=== PATIENT | female | born 1940 | race Caucasian/White ===

== ENCOUNTER 2017-08-07 01:06 | Inpatient (IN) | payer MEDICARE, OTHER ==
[~2017-08-07] VITALS: Ht 160 cm; Wt 61.0 kg
[2017-08-07] VITALS (37 sets, daily range): BP systolic 58–153; BP diastolic 45–101
[~2017-08-07 01:06] MED LIST: ACET-2267 PO; ALBU8.5H4 IH; AMOX500C2 PO; ASP81TEC PO; AZIT500T2 PO; CIPR-225 PO; CIPR500T78 PO; CLAR500T8 PO; GUAI-150 PO; LEVO500T2 PO; METO-333 PO; METO25TA2 PO; NAPR-1071 PO; PRD20T PO
--- OUTSIDE RECORDS SUMMARY | 2017-08-07 01:11 | XMS REPORT | Continuity of Care Document ---
Author Author [facility] Organization [facility] Address Unknown Phone Unavailable Allergies Active Description Code Type Severity Reaction Onset Reported/Identified Relationship to Patient Clinical Status Yes No Known Drug Allergies [id number] Drug Allergy Unknown N/A 11/02/2009 Medications There is no data. Problems Date Dx Coded Attending Type Code Diagnosis Diagnosed By 10/14/2010 Ot 491.22 10/14/2010 Ot 786.05 12/17/2010 Ot 277.4 12/17/2010 Ot 397.0 12/17/2010 Ot 401.9 12/17/2010 Ot 496 12/17/2010 Ot 785.6 12/17/2010 Ot 786.59 12/17/2010 Ot 790.95 12/17/2010 Ot V15.82 12/17/2010 Ot 305.1 12/17/2010 Ot 466.0 12/17/2010 Ot 780.60 11/10/2013 CUNNINGHAM DO, OCTAVIO Ot 397.0 11/10/2013 CUNNINGHAM DO, OCTAVIO Ot 401.9 11/10/2013 CUNNINGHAM DO, OCTAVIO Ot 424.0 11/10/2013 CUNNINGHAM DO, OCTAVIO Ot 482.9 11/10/2013 CUNNINGHAM DO, OCTAVIO Ot 491.21 11/10/2013 CUNNINGHAM DO, OCTAVIO Ot 799.02 11/10/2013 OCTAVIO SHAH, OCTAVIO Ot V15.82 02/22/2015 THERESA ISRAEL DO Ot 486 02/22/2015 THERESA ISRAEL DO Ot 496 02/22/2015 THERESA ISRAEL DO Ot 518.0 02/22/2015 THERESA ISRAEL DO Ot V15.82 04/06/2015 THERESA ISRAEL DO Ot A49.9 04/06/2015 THERESA ISRAEL DO Ot I10 04/06/2015 THERESA ISRAEL DO Ot J01.00 04/06/2015 THERESA ISRAEL DO Ot M75.52 09/14/2015 ISRAELTHERESA WATKINS DO Ot R91.8 10/06/2015 Ot R91.8 OTHER NONSPECIFIC ABNORMAL FINDING OF MARYLOU 10/22/2015 Ot R91.8 OTHER NONSPECIFIC ABNORMAL FINDING OF MARYLOU Procedures There is no data. Results There is no data. Encounters ACCT No. Visit Date/Time Discharge Status Pt. Type Provider Facility Loc./Unit Complaint [id number] 09/13/2015 09:11:00 09/13/2015 23:59:59 CLS Outpatient JHONATAN SHAHTHERESA Tanesha [facility] [id number] 04/13/2015 10:37:00 04/13/2015 23:59:59 CLS Preadmit JHONATAN SHAH THERESA Tanesha [facility] REHAB [id number] 04/05/2015 18:45:00 04/06/2015 08:41:00 DIS Inpatient THERESA ISRAEL DO Via [address] [id number] 02/20/2015 01:30:00 02/22/2015 14:30:00 DIS Inpatient ISRAEL DO, THERESA Tanesha [facility] SURGICAL [id number] 11/08/2013 11:58:00 11/10/2013 12:05:00 DIS Inpatient OCTAVIO CUNNINGHAM DO Via [address] [id number] 09/16/2015 07:48:00 Document Registration [id number] 12/17/2010 21:26:00 Document Registration [id number] 12/17/2010 00:15:00 Document Registration [id number] 10/14/2010 21:05:00 Document Registration
[2017-08-07] MEDS ORDERED: ASPIRIN 81 MG CHEW (CHILDREN'S ASA) ONE (01:18)
[2017-08-07] MEDS ORDERED: ONDANSETRON 4 MG/2 ML (SDV) Z0FRAN ONE (01:18)
--- NOTE | 2017-08-07 01:27 | ED Chest Pain ---
General Stated Complaint: LEFT ARM PAIN,VOMITING Source: patient Exam Limitations: no limitations History of Present Illness Date Seen by Provider: Aug 07, 2017 Time Seen by Provider: 01:10 Initial Comments Patient presents to the ER by a private conveyance with a chief complaint that she's having some left posterior shoulder severe pain started about 8:00 last night. She has not taken anything for it. She has no prior history of coronary artery disease. 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 She quit smoking in 2007 at the same time. She does not drink alcohol presently. She has hypertension that is controlled with the medication but she' s not sure what it is almost she is certain she is been taking it appropriately. She denies any thyroid disease, diabetes, hypercholesterolemia. She is not on blood thinners or aspirin. She's not having any shortness of breath that she did feel hot and some sweats at the time of the pain coming on as well as a little nausea. Allergies and Home Medications Allergies Coded Allergies: No Known Drug Allergies (Unverified , 11/02/09) Home Medications Acetaminophen 500 Mg Tablet, 1,000 MG PO Q6H PRN for PAIN/FEVER, (Reported) Levofloxacin 500 Mg Tablet, 500 MG PO DAILY, #7 Ref 0 Prescribed by: THERESA ISRAEL on 04/06/15 0844 Metoprolol Tartrate 25 Mg Tablet, 25 MG PO DAILY, (Reported) Naproxen 500 Mg Tablet, 500 MG PO BID, #20 Ref 0 Prescribed by: THERESA ISRAEL on 04/06/15 0844 Review of Systems Constitutional: No chills, No diaphoresis, No fever EENTM: No Blurred Vision, No Double Vision Respiratory: Denies Cough, Denies Shortness of Air Cardiovascular: Denies Chest Pain, Denies Edema, Denies Irregular Heart Rate Gastrointestinal: Denies Abdomen Distended, Denies Abdominal Pain Genitourinary: Denies Burning, Denies Discharge Musculoskeletal: No back pain, No joint pain Skin: No pruritus, No rash Psychiatric/Neurological: Denies Headache, Denies Numbness, Denies Paresthesia Past Wyrvxzz-Mdhnmy-Pltski Hx Patient Social History Alcohol Use: Denies Use Recreational Drug Use: No Smoking Status: Former Smoker Type Used: Cigarettes Former Smoker, Quit: Aug 02, 2007 Recent Foreign Travel: No Contact w/Someone Who Travel: No Immunizations Up To Date Tetanus Booster (TDap): More than 5yrs PED Vaccines UTD: Yes Date of Pneumonia Vaccine: Feb 20, 2015 Date of Influenza Vaccine: Feb 20, 2015 Surgeries Surgeries: Appendectomy, Section, Gallbladder, Tonsillectomy Respiratory Respiratory Disorders: Pneumonia, Emphysema Cardiovascular Cardiac Disorders: Hypertension Reproductive System Hx Reproductive Disorders: No Musculoskeletal Musculoskeletal Disorders: Arthritis Blood Transfusions Adverse Reaction to a Blood Tr: No Family Medical History Significant Family History: Heart Disease, Cancer, Psychiatric Problems Family Medial History: Cancer G8 BROTHER Colon cancer G8 BROTHER G8 SISTER Family history: Alzheimer's disease 19 FATHER G8 BROTHER G8 SISTER Family history: Diabetes mellitus 19 MOTHER G8 BROTHER G8 SISTER Heart disease 19 MOTHER Hypertension 19 FATHER 19 MOTHER G8 BROTHER G8 SISTER Physical Exam Vital Signs Vital Signs - First Documented 08/07/17 08/07/17 01:11 01:14 Temp 97.6 Pulse 94 Resp 24 B/P (MAP) 98/85 (89) Pulse Ox 98 O2 Delivery Room Air O2 Flow Rate 2.00 Capillary Refill : General Appearance: Anxious, Moderate Distress HEENT: PERRL/EOMI, Pharynx Normal Neck: Full Range of Motion, Non Tender, Supple Respiratory: Chest Non Tender, Lungs Clear, Normal Breath Sounds, No Accessory Muscle Use Cardiovascular: Regular Rate, Rhythm, No Edema, Gallop/S4 Gastrointestinal: Non Tender, Soft Extremity: Normal Capillary Refill, Non Tender, No Pedal Edema Neurologic/Psychiatric: Alert, Oriented x3 Skin: Normal Color, Warm/Dry Progress/Results/Core Measures Results/Orders Lab Results Laboratory Tests Test 08/07/17 01:23 Range/Units White Blood Count 11.2 H 4.3-11.0 10^3/uL Red Blood Count 4.93 4.35-5.85 10^6/uL Hemoglobin 14.8 11.5-16.0 G/DL Hematocrit 44 35-52 % Mean Corpuscular Volume 89 80-99 FL Mean Corpuscular Hemoglobin 30 25-34 PG Mean Corpuscular Hemoglobin Concent 34 32-36 G/DL Red Cell Distribution Width 13.8 10.0-14.5 % Platelet Count 186 130-400 10^3/uL Mean Platelet Volume 11.7 H 7.4-10.4 FL Neutrophils (%) (Auto) 52 42-75 % Lymphocytes (%) (Auto) 36 12-44 % Monocytes (%) (Auto) 9 0-12 % Eosinophils (%) (Auto) 3 0-10 % Basophils (%) (Auto) 0 0-10 % Neutrophils # (Auto) 5.9 1.8-7.8 X 10^3 Lymphocytes # (Auto) 4.1 H 1.0-4.0 X 10^3 Monocytes # (Auto) 1.0 0.0-1.0 X 10^3 Eosinophils # (Auto) 0.3 0.0-0.3 10^3/uL Basophils # (Auto) 0.1 0.0-0.1 10^3/uL Prothrombin Time 12.2 12.2-14.7 SEC INR Comment 0.9 0.8-1.4 Activated Partial Thromboplast Time 25 24-35 SEC My Orders Orders - LEO,IDA J Cbc With Automated Diff (08/07/17:18) Magnesium (08/07/17:18) Chest 1 View, Ap/Pa Only (08/07/17:18) Ekg Tracing (08/07/17:18) Cardiac Profile 1 (08/07/17:18) Comprehensive Metabolic Panel (08/07/17:18) Myoglobin Serum (08/07/17:18) Protime With Inr (08/07/17:18) Partial Thromboplastin Time (08/07/17:18) O2 (08/07/17:18) Monitor-Rhythm Ecg Trace Only (08/07/17:18) Lipid Panel (08/08/17 06:00) Aspirin Chewable Tablet (Baby Aspirin Ch (08/07/17 01:30) Morphine Injection (Morphine Injection (08/07/17:18) Saline Lock/Iv-Start (08/07/17:18) Ondansetron Injection (Zofran Injectio (08/07/17 01:30) Ondansetron Injection (Zofran Injectio (08/07/17:18) Aspirin Chewable Tablet (Baby Aspirin Ch (08/07/17:18) Clopidogrel Tablet (Plavix Tablet) (08/07/17 01:30) Medications Given in ED Current Medications Medications Dose Ordered Sig/Berta Route Start Time Stop Time Status Last Admin Dose Admin Aspirin 324 mg ONCE ONCE PO 08/07/17 01:30 08/07/17 01:31 DC 08/07/17 01:21 324 MG Clopidogrel Bisulfate 300 mg ONCE ONCE PO 08/07/17 01:30 08/07/17 01:31 DC 08/07/17 01:39 300 MG Ondansetron HCl 4 mg ONCE ONCE IVP 08/07/17 01:30 08/07/17 01:31 DC 08/07/17 01:23 4 MG Vital Signs/I&O Vital Sign - Last 12Hours 08/07/17 08/07/17 08/07/17 01:11 01:11 01:14 Temp 97.6 Pulse 94 Resp 24 B/P (MAP) 98/85 (89) Pulse Ox 98 99 O2 Delivery Room Air Room Air Nasal Cannula O2 Flow Rate 2.00 Progress Note : Time: 01:25 Progress Note We have given her aspirin/300mg Plavix but cannot give nitroglycerin secondary to her low blood pressure so we'll give her some morphine. We have talked to cardiology and activated the [employer] team. The second IV was placed. EKG does not feel inferior changes but even of her blood pressure is good we will probably hold off nitroglycerin. Most recent echocardiogram done by Dr. Carcamo from 2013 demonstrates normal left ventricular size and systolic function with an EF of 60%. Mix this degeneration the mitral leaflet with mild mitral regurgitation, mild-to -moderate tricuspid regurgitation. Estimated pulmonary artery pressure 50 mmHg. ECG Initial ECG Impression Date: Aug 07, 2017 Initial ECG Impression Time: 01:13 Initial ECG Rate: 85 Initial ECG Rhythm: Normal Sinus Initial ECG Intervals: Normal Initial ECG Impression: Acute VA Initial ECG Comparisson: Changed Comment T-wave depression in leads V1, V2, V3 and V4 with multiple PVCs consistent with a posterior infarct. Diagnostic Imaging Diagonstic Imaging: Xray Plain Films/CT/US/NM/MRI: chest Comments No acute cardiopulmonary processes noted. Reviewed: Reviewed by Me Departure Impression Impression: Primary Impression: Acute [facility] Qualified Codes: I21.3 - ST elevation (STEMI) myocardial infarction of unspecified site Disposition: ADMITTED INPATIENT Condition: Critical Admissions Decision to Admit Reason: Admit from ER (General) Decision to Admit/Date: Aug 07, 2017 Time/Decision to Admit Time: 01:47 Departure-Patient Inst. Referrals: THERESA ISRAEL DO (PCP/Family) Primary Care Physician Copy Copies To 1: TOI CARCAMO MD Copies To 2: THERESA ISRAEL TITUS J Aug 07, 2017 01:27
[2017-08-07 01:28] LABS: BASOPHILS # (AUTO) 0.1 10^3/uL (0.0-0.1); BASOPHILS % (AUTO) 0 % (0-10); EOSINOPHILS # (AUTO) 0.3 10^3/uL (0.0-0.3); EOSINOPHILS % (AUTO) 3 % (0-10); HEMATOCRIT 44 % (35-52); HEMOGLOBIN 14.8 G/DL (11.5-16.0); LYMPHOCYTES # (AUTO) 4.1 X 10^3 (1.0-4.0); LYMPHOCYTES % (AUTO) 36 % (12-44); MEAN CORPUSCULAR HEMOGLOBIN 30 PG (25-34); MEAN CORPUSCULAR HGB CONC 34 G/DL (32-36); MEAN CORPUSCULAR VOLUME 89 FL (80-99); MEAN PLATELET VOLUME 11.7 FL (7.4-10.4); MONOCYTES % (AUTO) 9 % (0-12); NEUTROPHILS # (AUTO) 5.9 X 10^3 (1.8-7.8); NEUTROPHILS % (AUTO) 52 % (42-75); PLATELET COUNT 186 10^3/uL (130-400); RED BLOOD COUNT 4.93 10^6/uL (4.35-5.85); RED CELL DISTRIBUTION WIDTH 13.8 % (10.0-14.5); WHITE BLOOD COUNT 11.2 10^3/uL (4.3-11.0)
[2017-08-07] MEDS ORDERED: ONDANSETRON 4 MG/2 ML (SDV) Z0FRAN IVP ONE ×2 (01:30→03:15)
[2017-08-07] MEDS ORDERED: CLOPIDOGREL 300 MG (PLAVIX) TABLET PO ONE ×2 (01:30→02:31)
[2017-08-07] MEDS ORDERED: ASPIRIN 81 MG CHEW (CHILDREN'S ASA) PO ONE (01:30)
--- OUTSIDE RECORDS SUMMARY | 2017-08-07 01:33 | XMS REPORT | Continuity of Care Document ---
Author Author [facility] Organization [facility] Address Unknown Phone Unavailable Allergies Active Description Code Type Severity Reaction Onset Reported/Identified Relationship to Patient Clinical Status Yes No Known Drug Allergies [id number] Drug Allergy Unknown N/A 11/02/2009 Medications There [...] Status Pt. Type Provider Facility Loc./Unit Complaint [id number] 09/13/2015 09:11:00 09/13/2015 23:59:59 CLS Outpatient JHONATAN SHAHTHERESA Tanesha [facility] [id number] 04/13/2015 10:37:00 04/13/2015 23:59:59 CLS Preadmit JHONATAN SHAH THERESA Tanesha [facility] REHAB [id number] 04/05/2015 18:45:00 04/06/2015 08:41:00 DIS Inpatient THERESA ISRAEL DO Via [address] [id number] 02/20/2015 01:30:00 02/22/2015 14:30:00 DIS Inpatient ISRAEL DO, THERESA Tanesha [facility] SURGICAL [id number] 11/08/2013 11:58:00 11/10/2013 12:05:00 DIS Inpatient OCTAVIO CUNNINGHAM DO Via [address] [id number] 09/16/2015 07:48:00 Document Registration [id number] 12/17/2010 21:26:00 Document Registration [id number] 12/17/2010 00:15:00 Document Registration [id number] 10/14/2010 21:05:00 Document Registration
[2017-08-07 01:37] LABS: INR 0.9 (0.8-1.4); PROTHROMBIN TIME PATIENT 12.2 SEC (12.2-14.7)
[2017-08-07] MEDS: morphine INJ 10 MG/ML 1ML (SYR OR VIAL) IV STA ×2 (01:39→01:50)
--- NOTE | 2017-08-07 01:48 | Cardiology History & Physical ---
HPI-Cardiology Cardiology Consultation Date of Consultation 08/07/17 Date of Admission Time Seen by Provider: 01:44 Indication: Chest pain HPI 76 years old lady with history of hypertension, history of tumor resection in [address] Norton, started having left arm pain around 6 p.m. yesterday, continue to worsen had left upper side chest pain, came into the emergency room , noted to have ST depression in V1 through V4 with tall R waves in V1 and V2. Given nitroglycerin, feeling better but still having some upper left chest pain and left arm pressure. No similar episodes in the past, no shortness of breath , no palpitation, syncope or near syncopal episode. PMH-Cardiology Immunizations Up To Date Tetanus Booster (DTap): More than 5yrs Date of Pneumonia Vaccine: Feb 20, 2015 Date of Influenza Vaccine: Feb 20, 2015 Surgeries Yes (T&A, CHOLECYSTECTOMY, 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, APPENDECTOMY, C-SECTIONS) Gall Bladder, Tonsillectomy, Open Heart Surgery Respiratory Yes Cardiovascular Yes (tachycardia, pulmonary hypertension, cardiac tumor status post resection) Hypertension Neurological No Reproductive System Hx Reproductive Disorders: No Gastrointestinal No Musculoskeletal Yes Arthritis Endocrine No Cancer No Psychosocial No Integumentary No Blood Transfusions No Adverse Rxn to Transfusion: No Other PMHx Past medical history as discussed below Social History Patient Social History Employed/Student: retired Alcohol Use: Denies Use Recreational Drug Use: No Smoking: Never smoker Dip or chew tobacco?: No Recent Foreign Travel: No Contact w/other who traveled: No Recent Infectious Disease Expo: No Family Hx Significant Family History: Heart Disease, Cancer, Psychiatric Problems Family History: 19 FATHER Family history: Alzheimer's disease Hypertension 19 MOTHER Family history: Diabetes mellitus Heart disease Hypertension G8 BROTHER Cancer Family history: Alzheimer's disease Family history: Diabetes mellitus Colon cancer Hypertension G8 SISTER Family history: Alzheimer's disease Family history: Diabetes mellitus Colon cancer Hypertension ROS-Cardiology Review of Systems General: No Chills, No Night Sweats, No Fatigue, No Malaise, No Appetite HEENT: No Head Aches, No Visual Changes, No Eye Pain, No Ear Pain, No Dysphasia , No Sinus Congestion, No Post Nasal Drip, No Sore Throat Pulmonary: No Dyspnea, No Cough, No Pleuritic Chest Pain Cardiovascular: Chest Pain, No: Palpitations, Orthopnea, Paroxysmal Noc. Dyspnea, Edema, Lt Headedness Gastrointestinal: No: Nausea, Vomiting, Abdominal Pain, Diarrhea, Constipation , Melena, Hematochezia Genitourinary: No Dysuria, No Frequency, No Incontinence, No Hematuria, No Retention Musculoskeletal: No: neck pain, shoulder pain, arm pain, back pain, hand pain, leg pain, foot pain Neurological: No: Weakness, Numbness, Incoordination, Change in speech, Confusion, Seizures Home Medications & Allergies Allergies: Coded Allergies: No Known Drug Allergies (Unverified , 11/02/09) Home Medication List Reviewed: Yes Exam-Cardiology Vital Signs Vital Signs Date Time Temp Pulse Resp B/P (MAP) Pulse Ox O2 Delivery O2 Flow Rate FiO2 08/07/17 01:14 99 Nasal Cannula 2.00 08/07/17 01:11 97.6 94 24 98/85 (89) Exam General Appearance: Alert, Oriented X3, Cooperative, No Acute Distress HEENT: Atraumatic, PERRLA Respiratory: Clear to Auscultation, Normal Air Movement Cardiovascular: Normal S1, Normal S2, No Murmurs, Other (Irregular rhythm) Abdominal: Normal Bowel Sounds, Soft, No Tenderness, No Hepatosplenomegaly, No Masses Extremities: No Clubbing, No Cyanosis, No Edema, Normal Pulses, No Tenderness/ Swelling Skin: No Rashes, No Breakdown, No Significant Lesion Neuro: Normal Gait, Normal Speech, Strength at 5/5 X4 Ext, Normal Tone, Sensation Intact Psych/Mental Status: Mental Status NL, Mood NL Results Labs Labs Laboratory Tests 08/07/17 01:23: White Blood Count 11.2H, Red Blood Count 4.93, Hemoglobin 14.8, Hematocrit 44, Mean Corpuscular Volume 89, Mean Corpuscular Hemoglobin 30, Mean Corpuscular Hemoglobin Concent 34, Red Cell Distribution Width 13.8, Platelet Count 186, Mean Platelet Volume 11.7H, Neutrophils (%) (Auto) 52, Lymphocytes (%) (Auto) 36 , Monocytes (%) (Auto) 9, Eosinophils (%) (Auto) 3, Basophils (%) (Auto) 0, Neutrophils # (Auto) 5.9, Lymphocytes # (Auto) 4.1H, Monocytes # (Auto) 1.0, Eosinophils # (Auto) 0.3, Basophils # (Auto) 0.1, Prothrombin Time 12.2, INR Comment 0.9, Activated Partial Thromboplast Time 25 A/P-Cardiology Admission Diagnosis Acute myocardial infarction Coronary artery disease Hypertension Cardiac tumor Assessment/Plan Acute myocardial infarction, ST depression in V1 through V4 with total R wave V1 through V2, posterior VA, catheter lab team were called. Proceed with emergency cardiac catheterization. Coronary artery disease, planning to proceed with cardiac catheterization Hypertension, currently borderline hypotensive, supported with IV fluid and monitor Questionable hyperlipidemia, I'll start on statin and evaluate lipid profile History of cardiac tumor, resection [place] [address] Norton, no follow-up with resource conservationist Clinical Quality Measures AMI/AHF: ASA po Prior to arrival: TOI Stephens MD Aug 07, 2017 01:48
--- NOTE | 2017-08-07 01:48 | Cardiac Procedure Note-CS/ASA ---
Pre-Procedure Note Pre-Op Procedure Note H&P Reviewed The H&P was reviewed, patient examined and no changes noted. Date H&P Reviewed: Aug 07, 2017 Time H&P Reviewed: 01:48 Conscious Sedation Pre-Proced Time Reviewed: :48 ASA Class: 3 Airway Mallampati Classification: (kar[place] appropriate class) I. II. III, IV Lungs Heart ASA score ASA 1: a normal healthy patient ASA 2: a patient with a mild systemic disease (mid diabetes, controlled hypertension, obesity x ASA 3: a patient with a severe systemic disease that limits activity (angina , COPD, prior Myocardial infarction) ASA 4: a patient with an incapacitating disease that is a constant threat to life (CHF, renal failure) ASA 5: a moribund patient not expected to survive 24 hrs. (ruptured aneurysm) ASA 6: a declared brain patient whose organs are being harvested. For emergent operations, add the letter E after the classification Grade 3 Sedation Plan: Analgesia, Amnesia, Plan communicated to team members, Discussed options with patient/fam, Discussed risks with patient/fam Note The patient is an appropriate candidate to undergo the planned procedure, sedation, and anesthesia. The patient immediately re-assessed prior to indication. TOI MONTAÑO MD Aug 07, 2017 01:48
[2017-08-07 01:50] LABS: ALANINE AMINOTRANSFERASE 15 U/L (0-55); ALBUMIN 4.2 GM/DL (3.2-4.5); ALKALINE PHOSPHATASE 81 U/L (40-136); BILIRUBIN,TOTAL 0.5 MG/DL (0.1-1.0); BUN/CREATININE RATIO 17; CALCIUM 9.7 MG/DL (8.5-10.1); CARBON DIOXIDE 27 MMOL/L (21-32); CHLORIDE 105 MMOL/L (98-107); CREATININE SERUM 1.05 MG/DL (0.60-1.30); GFR ESTIMATED 51; GLUCOSE 128 MG/DL (70-105); MAGNESIUM 2.4 MG/DL (1.8-2.4); POTASSIUM 4.6 MMOL/L (3.6-5.0); SODIUM 142 MMOL/L (135-145); TOTAL PROTEIN 7.3 GM/DL (6.4-8.2)
[2017-08-07] MEDS ORDERED: MIDAZOLAM 5 MG/5 ML (VERSED) VIAL ONE ×2 (01:51→05:25)
[2017-08-07] MEDS ORDERED: HEParin 1000 UNIT/ML (10ML VIAL) FOR BOLUS ONE (01:52)
[2017-08-07] MEDS ORDERED: fentaNYL INJECTION 100 MCG/2 ML AMP ONE ×2 (01:52→05:24)
[2017-08-07 02:00] LABS: MYOGLOBIN SERUM 82.1 NG/ML (10.0-92.0)
[2017-08-07] MEDS ORDERED: LIDOCAINE BOLUS 100 MG/5 ML (IMS) SYR ONE (02:06)
[2017-08-07] MEDS ORDERED: NS (IVPB) 250 ML ONE (02:06)
[2017-08-07] MEDS ORDERED: niCARdipine 25 MG/10 ML (CARDENE) AMP IV ONE (02:06)
[2017-08-07] MEDS ORDERED: ATROPINE INJECTION 1 MG/10 ML SYR (ABBOTT) ONE (02:06)
[2017-08-07] MEDS ORDERED: EPTIFIBATIDE BOLUS 10 ML IV ONE (02:15)
--- NOTE | 2017-08-07 02:44 | Cardiac Cath Report ---
Cardiac Cath Report Physician (s)/Java Manager (s) Physician TOI MONTAÑO MD Pre-Procedure Diagnosis Pre-Procedure Diagnosis: Acute ST elevation myocardial infarctions Post-Procedure Note Procedure Start Date: Aug 07, 2017 Name of Procedure: Left heart catheterization, left ventriculogram Extraction catheter, balloon angioplasty and stent to the circumflex artery Findings/Procedure Note PROCEDURE NOTE: After explaining the procedure to the patient, all pros and cons were explained, all questions were answered. The patient signed the consent and then she was placed on the cardiac catheterization laboratory. The patient was placed on the cardiac catheterization laboratory. Groin was prepped SL fashion local anesthesia was used. Sheath placed in the right femoral artery. Alee right and left catheter were used to access the coronary system. Pigtail was used to access the left ventricular cavity. Left ventriculogram was done Patient had total occlusion of the circumflex artery with heavy from thrombus burden, she was given 6000 units of heparin, double bolus of Integrilin no drip was used, FL guide was used, BMW wire was advanced to the circumflex artery, some blood flow was noted, I used extraction catheter, door to extraction catheter was 67 minutes, predilatation with 2.015 mm balloon then stent deployment using Alpine 2.518 mm drug-eluting stent expanded to 2.6 mm under 12 shweta, given 200 g of intracoronary nitroglycerin, excellent results. No residual stenosis At the end of the procedure the sheath was removed. Closure device Was used FINDINGS: Hemodynamics LV 108/23, end-diastolic pressure of 23 Aorta 106/54 mean of 74 ANATOMY: Left Main is free of obstructive disease Left Anterior Descending it is tortuous with mild disease Left Circumflex tortuous artery, totally occluded proximally, successful extraction catheter then balloon angioplasty then stent deployment using Alpine 2.518 mm expanded to 2.6 mm in the proximal circumflex artery with excellent results. Mild to moderate disease distally Right Coronory Artery has 90 percent stenosis proximally which will be addressed at a later point LV Gram was done in 2 views, normal contractility, estimated ejection fraction 70 percent CONCLUSION: 1. Acute ST elevation posterior myocardial infarction with total occlusion of the proximal circumflex artery with heavy thrombus burden, extraction catheter then balloon angioplasty then stent deployment using Alpine 2.518 mm expanded to 2.6 mm with excellent results. Mild to moderate disease in the distal circumflex artery, door to extraction catheter and establishing flow is 67 minutes 2. 90 percent stenosis in the proximal right coronary artery that will be addressed at a later point 3. Tortuous carotid system with mild disease in the LAD 4. Normal left ventricular size with normal contractility with estimated ejection fraction 70 percent DISCUSSION AND RECOMMENDATION: I will continue maximizing medical therapy, patient is hypotensive at this time , I'll continue with IV fluid and will use dopamine drip, planning to bring the patient back for intervention to the right coronary artery Anesthesia Type: Conscious Sedation Estimated blood loss (mL): 20 ml Contrast Amount: 135 ml Total Radiation Dose: 557 mGy Post-Procedure Diagnosis Post-operative diagnosis: Acute ST elevation myocardial infarction, posterior wall NE Coronary artery disease Hypotensive shock Cardiac tumor TOI MONTAÑO MD Aug 07, 2017 02:44
[2017-08-07] MEDS ORDERED: PATIENT MAY USE OWN MEDS, ALL PO SCH (02:45)
[2017-08-07] MEDS ORDERED: DOPamine DRIP 250 ML IV ONE (02:47)
[2017-08-07] MEDS ORDERED: PANTOPRAZOLE 40 MG/10 ML (PROTONIX) VIAL IV ONE (03:15)
[2017-08-07] MEDS: NS IV 1000 ML 1,000 ML IV SCH ×5 (03:30→12:34)
--- OUTSIDE RECORDS SUMMARY | 2017-08-07 03:38 | XMS REPORT | Continuity of Care Document ---
Author Author [facility] Organization [facility] Address Unknown Phone Unavailable Allergies Active Description Code Type Severity Reaction Onset Reported/Identified Relationship to Patient Clinical Status Yes No Known Drug Allergies [id number] Drug Allergy Unknown N/A 11/02/2009 Medications There [...] Status Pt. Type Provider Facility Loc./Unit Complaint [id number] 09/13/2015 09:11:00 09/13/2015 23:59:59 CLS Outpatient JHONATAN SHAHTHERESA Tanesha [facility] [id number] 04/13/2015 10:37:00 04/13/2015 23:59:59 CLS Preadmit JHONATAN SHAH THERESA Tanesha [facility] REHAB [id number] 04/05/2015 18:45:00 04/06/2015 08:41:00 DIS Inpatient THERESA ISRAEL DO Via [address] [id number] 02/20/2015 01:30:00 02/22/2015 14:30:00 DIS Inpatient ISRAEL DO, THERESA Tanesha [facility] SURGICAL [id number] 11/08/2013 11:58:00 11/10/2013 12:05:00 DIS Inpatient OCTAVIO CUNNINGHAM DO Via [address] [id number] 09/16/2015 07:48:00 Document Registration [id number] 12/17/2010 21:26:00 Document Registration [id number] 12/17/2010 00:15:00 Document Registration [id number] 10/14/2010 21:05:00 Document Registration
[2017-08-07 03:44] LABS: HEMOGLOBIN 14.2 G/DL (11.5-16.0); MEAN PLATELET VOLUME 11.9 FL (7.4-10.4); RED BLOOD COUNT 4.81 10^6/uL (4.35-5.85); RED CELL DISTRIBUTION WIDTH 13.8 % (10.0-14.5); WHITE BLOOD COUNT 12.5 10^3/uL (4.3-11.0)
[2017-08-07 04:12] LABS: INR 1.1 (0.8-1.4); PROTHROMBIN TIME PATIENT 14.1 SEC (12.2-14.7)
[2017-08-07] MEDS ORDERED: D5W 100 ML IVPB 100 ML IV ONE (04:27)
[2017-08-07 04:28] LABS: PARTIAL THROMBOPLASTIN TIME > 200 SEC (24-35)
[2017-08-07] MEDS ORDERED: PROTAMINE 50 MG/5 ML VIAL IV ONE (04:30)
[2017-08-07] MEDS ORDERED: PANTOPRAZOLE INJECTION 200 MG in D5W 100 ML IVPB 50 ML IV SCH (04:30)
--- NOTE | 2017-08-07 04:42 | Conscious Sedation/ASA ---
Conscious Sedation Pre-Proced Time Reviewed: 04:42 ASA Class: 4 Airway Mallampati Classification: (iroquois appropriate class) I. II. III, IV Lungs Heart ASA score ASA 1: a normal healthy patient ASA 2: a patient with a mild systemic disease (mid diabetes, controlled hypertension, obesity ASA 3: a patient with a severe systemic disease that limits activity (angina , COPD, prior Myocardial infarction) ASA 4: a patient with an incapacitating disease that is a constant threat to life (CHF, renal failure) ASA 5: a moribund patient not expected to survive 24 hrs. (ruptured aneurysm) ASA 6: a declared brain patient whose organs are being harvested. For emergent operations, add the letter E after the classification Grade 2 Sedation Plan: Discussed options with patient/fam Note The patient is an appropriate candidate to undergo the planned procedure, sedation, and anesthesia. The patient immediately re-assessed prior to indication. JUAN FRANCISCO BURLESON MD Aug 07, 2017 04:42
--- NOTE | 2017-08-07 04:42 | Consultation ---
History of Present Illness History of Present Illness Patient Consulted On(willis/time) 08/07/17 04:38 Date Seen by Provider: Aug 07, 2017 Time Seen by Provider: 04:05 Reason for Visit: Chest pain History of Present Illness Patient recovering from cardiac catheterization and angioplasty with stent placement of circumflex artery, to manage acute myocardial infarction. Heparin and antiplatelet drugs have been used to optimize her coronary status and improve the patency of her stent. The nursing staff reported hematemesis and I have been asked to see her to evaluate and address this symptom. She denies any previous episodes of melena or hematemesis and could not recall any symptoms suggestive of peptic ulcer disease. Allergies and Home Medications Allergies Coded Allergies: No Known Drug Allergies (Unverified , 11/02/09) Home Medications Acetaminophen 500 Mg Tablet, 1,000 MG PO Q6H PRN for PAIN/FEVER, (Reported) Levofloxacin 500 Mg Tablet, 500 MG PO DAILY, #7 Ref 0 Prescribed by: THERESA ISRAEL on 04/06/15 0844 Metoprolol Tartrate 25 Mg Tablet, 25 MG PO DAILY, (Reported) Naproxen 500 Mg Tablet, 500 MG PO BID, #20 Ref 0 Prescribed by: THERESA ISRAEL on 04/06/15 0844 Past Fxdynzd-Oqabwn-Yymtrs Hx Patient Social History Alcohol Use: Denies Use Recreational Drug Use: No Smoking Status: Former Smoker Type Used: Cigarettes Former Smoker, Quit: Aug 02, 2007 Recent Foreign Travel: No Contact w/Someone Who Travel: No Recent Infectious Disease Expo: No Recent Hopitalizations: Yes Physical Abuse: No Sexual Abuse: No Mistreated: No Fear: No Immunizations Up To Date Tetanus Booster (TDap): More than 5yrs PED Vaccines UTD: Yes Date of Pneumonia Vaccine: Feb 20, 2015 Date of Influenza Vaccine: Feb 20, 2015 Surgeries History of Surgeries: Yes (T&A, CHOLECYSTECTOMY, 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, APPENDECTOMY, C-SECTIONS) Surgeries: Appendectomy, Section, Gallbladder, Tonsillectomy Respiratory History of Respiratory Disorde: Yes Respiratory Disorders: Pneumonia, Emphysema Cardiovascular History of Cardiac Disorders: Yes (tachycardia, pulmonary hypertension, cardiac tumor status post resection) Cardiac Disorders: Hypertension Neurological History of Neurological Disord: No Reproductive System Hx Reproductive Disorders: No Gastrointestinal History of Gastrointestinal Di: No Musculoskeletal History of Musculoskeletal Dis: Yes Musculoskeletal Disorders: Arthritis Endocrine History of Endocrine Disorders: No Cancer History of Cancer: No Psychosocial History of Psychiatric Problem: No Suicide Risk Score: 0 Integumentary History of Skin or Integumenta: No Blood Transfusions History of Blood Disorders: No Adverse Reaction to a Blood Tr: No Family Medical History Significant Family History: Heart Disease, Cancer, Psychiatric Problems Family Medial History: Cancer G8 BROTHER Colon cancer G8 BROTHER G8 SISTER Family history: Alzheimer's disease 19 FATHER G8 BROTHER G8 SISTER Family history: Diabetes mellitus 19 MOTHER G8 BROTHER G8 SISTER Heart disease 19 MOTHER Hypertension 19 FATHER 19 MOTHER G8 BROTHER G8 SISTER Review of Systems-General Constitutional: weakness EENTM: no symptoms reported Respiratory: no symptoms reported Cardiovascular: see HPI Gastrointestinal: see HPI Genitourinary: no symptoms reported Musculoskeletal: no symptoms reported Skin: no symptoms reported Psychiatric/Neurological: No Symptoms Reported Physical Exam-General Problems Physical Exam Vital Signs Vital Signs - First Documented 08/07/17 08/07/17 01:11 01:14 Temp 97.6 Pulse 94 Resp 24 B/P (MAP) 98/85 (89) Pulse Ox 98 O2 Delivery Room Air O2 Flow Rate 2.00 Capillary Refill : Less Than 3 Seconds General Appearance: mild distress Neck: supple Respiratory: lungs clear Cardiovascular: other Gastrointestinal: non tender, soft Neurologic/Psychiatric: alert Skin: warm/dry Comments No significant hematoma over the right groin. Assessment/Plan Assessment/Plan Admission Diagnosis/Plan Lady with upper GI bleeding. Antiplatelet therapy and anticoagulants. Currently hemoglobin stable. Requires vasopressors to maintain a reasonable blood pressure. Appropriate to perform a diagnostic upper endoscopy first. It is likely that she will require the procedure to be repeated and possibly some therapeutic maneuvers performed. I have discussed this with her and she is in agreement Clinical Quality Measures AMI/AHF: ASA po Prior to arrival: JUAN FRANCISCO Mcginnis MD Aug 07, 2017 04:42
[2017-08-07] MEDS: PANTOPRAZOLE INJECTION 200 MG in D5W 100 ML IVPB 50 ML IV SCH (04:45)
[2017-08-07 04:52] LABS: CALCIUM 8.8 MG/DL (8.5-10.1); CREATININE SERUM 0.97 MG/DL (0.60-1.30); POTASSIUM 4.7 MMOL/L (3.6-5.0)
[2017-08-07] MEDS ORDERED: EPINEPHrine INJECTION 1 MG/ML AMP ONE (05:16)
[2017-08-07] MEDS ORDERED: METOCLOPRAMIDE INJ 10 MG/2 ML (REGLAN) ONE (05:17)
--- NOTE | 2017-08-07 05:17 | Diagnostic Imaging Report ---
INDICATION: History of heart disease COMPARISON: 04/05/2015 FINDINGS: Single frontal view of the chest demonstrates normal heart size and pulmonary vascularity. The lungs are hyperinflated, but are otherwise clear. No large pleural effusion or pneumothorax is seen. The visualized osseous structures show no acute abnormalities. Sternotomy wires are noted. IMPRESSION: 1. No acute cardiopulmonary process. 2. Background of COPD. Dictated by: Dictated on workstation # [id number]
[2017-08-07] MEDS ORDERED: HURRICAINE EXT TUBE (BENZOCAINE) ONE (05:25)
[2017-08-07] MEDS ORDERED: fentaNYL INJECTION 100 MCG/2 ML AMP IVP ONE (05:31)
[2017-08-07] MEDS ORDERED: MIDAZOLAM 2 MG/2 ML (VERSED) VIAL IVP ONE (05:33)
[2017-08-07] MEDS ORDERED: METOCLOPRAMIDE INJ 10 MG/2 ML (REGLAN) IVP ONE (05:45)
--- NOTE | 2017-08-07 05:49 | Endo Procedure Record ---
Endo Procedure Report Date of Procedure Last Colonoscopy: No Aug 07, 2017 Surgeon (s) JUAN FRANCISCO BURLESON MD Post Procedure/Op Diagnosis Clots down the distal esophagus and the proximal stomach. No active bleeding encountered Procedure Performed Upper GI endoscopy Description of Procedure Anesthesia Type: Conscious Sedation Specimen(s) collected/removed None Description of the Procedure Indication for procedure: This lady has just undergone cardiac catheterization and stent placement to manage an acute myocardial infarction with thrombosis of the circumflex artery. Obviously, she received heparin and antiplatelet drugs. She developed hematemesis and hemodynamic instability. Therefore, an upper endoscopy was appropriate, despite limitations of visibility due to blood clots. Due to the grave nature of her condition, the procedure was considered emergent and medically indicated. In addition, there was no family member available to obtain informed consent. Description of the procedure: She was placed in left lateral decubitus position and conscious sedation achieved using 1 mg of Versed and 50 g of fentanyl. The flexible gastroscope was introduced down the esophagus, past the stomach, into the proximal duodenum. Findings Esophagus: Clots along the distal esophagus with no evidence of active bleeding or varices. Stomach: Clots and dilute blood along the proximal body possibly due to gastritis. No definitive ulceration could be identified. Duodenum: Normal. She tolerated the procedure reasonably well and remained stable. Impression upper GI bleeding possibly due to acute gastritis. Will treat medically and consider second look endoscopy within 24-48 hours. Copies To: TOI MONTAÑO MD, XAVIER M MD Aug 07, 2017 5:48 am
--- NOTE | 2017-08-07 06:51 | Pulmonary Consultation ---
History of Present Illness History of Present Illness Date of Consultation 08/07/17 06:40 Time Seen by Provider: 06:40 Date of Admission Reason for Visit: Chest pain History of Present Illness 76yo with hx of tobacco use quit in 2005 and no hx of diagnosed COPD presented secondary to left CP with radiation to left arm and found to have ST depression in V1 and V4. 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 Dr Hardy was called and performed EGD. 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 I am consulted for ICU management. Allergies and Home Medications Allergies Coded Allergies: No Known Drug Allergies (Unverified , 11/02/09) Home Medications Acetaminophen 500 Mg Tablet, 1,000 MG PO Q6H PRN for PAIN/FEVER, (Reported) Levofloxacin 500 Mg Tablet, 500 MG PO DAILY, #7 Ref 0 Prescribed by: THERESA ISRAEL on 04/06/15 0844 Metoprolol Tartrate 25 Mg Tablet, 25 MG PO DAILY, (Reported) Naproxen 500 Mg Tablet, 500 MG PO BID, #20 Ref 0 Prescribed by: THERESA ISRAEL on 04/06/15 0844 Past Pvhyjtt-Ktjaqt-Efzhhv Hx Patient Social History Alcohol Use: Denies Use Recreational Drug Use: No Smoking Status: Former Smoker Type Used: Cigarettes Former Smoker, Quit: Aug 02, 2007 Recent Foreign Travel: No Contact w/Someone Who Travel: No Recent Infectious Disease Expo: No Recent Hopitalizations: Yes Physical Abuse: No Sexual Abuse: No Mistreated: No Fear: No Immunizations Up To Date Tetanus Booster (TDap): More than 5yrs PED Vaccines UTD: Yes Date of Pneumonia Vaccine: Feb 20, 2015 Date of Influenza Vaccine: Feb 20, 2015 Surgeries History of Surgeries: Yes (T&A, CHOLECYSTECTOMY, 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, APPENDECTOMY, C-SECTIONS) Surgeries: Appendectomy, Section, Gallbladder, Tonsillectomy Respiratory History of Respiratory Disorde: Yes Respiratory Disorders: Pneumonia, Emphysema Cardiovascular History of Cardiac Disorders: Yes (tachycardia, pulmonary hypertension, cardiac tumor status post resection) Cardiac Disorders: Hypertension Neurological History of Neurological Disord: No Reproductive System : No Hx Reproductive Disorders: No Gastrointestinal History of Gastrointestinal Di: No Musculoskeletal History of Musculoskeletal Dis: Yes Musculoskeletal Disorders: Arthritis Endocrine History of Endocrine Disorders: No Cancer History of Cancer: No Psychosocial History of Psychiatric Problem: No Suicide Risk Score: 0 Integumentary History of Skin or Integumenta: No Blood Transfusions History of Blood Disorders: No Adverse Reaction to a Blood Tr: No Family Medical History Significant Family History: Heart Disease, Cancer, Psychiatric Problems Family Medial History: Cancer G8 BROTHER Colon cancer G8 BROTHER G8 SISTER Family history: Alzheimer's disease 19 FATHER G8 BROTHER G8 SISTER Family history: Diabetes mellitus 19 MOTHER G8 BROTHER G8 SISTER Heart disease 19 MOTHER Hypertension 19 FATHER 19 MOTHER G8 BROTHER G8 SISTER Review of Systems Time Seen by Provider: 06:53 Constitutional: Weakness, Malaise, No: Fever, Chills Eyes: No: Pain, Vision change, Conjunctivae inflammation, Eyelid inflammation, Other, Redness ENT: No: Nose congestion Respiratory: No: Cough, Dry, Shortness of breath, SOB with excertion Cardiovascular: Chest Pain, No: Palpitations, Paroxysmal Noc. Dyspnea Gastrointestinal: No: Nausea, Vomiting, Diarrhea Genitourinary: No Dysuria Neurological: Weakness Exam Exam Vital Signs Date Time Temp Pulse Resp B/P (MAP) Pulse Ox O2 Delivery O2 Flow Rate FiO2 08/07/17 06:15 90 12 78/57 (64) 95 Nasal Cannula 2.00 08/07/17 06:00 93 12 77/59 (65) 96 Nasal Cannula 2.00 08/07/17 05:45 93 19 58/45 (49) 93 Nasal Cannula 2.00 08/07/17 05:30 105 23 103/87 (92) 87 Nasal Cannula 2.00 08/07/17 05:15 118 25 98/69 (79) 97 Nasal Cannula 2.00 08/07/17 05:00 108 13 111/75 (87) 97 Nasal Cannula 2.00 08/07/17 04:55 97.6 99 17 77/65 98 Nasal Cannula 3.00 08/07/17 04:55 97.6 96 17 77/65 96 Nasal Cannula 4.00 08/07/17 04:45 125 25 101/72 (82) 94 Nasal Cannula 2.00 08/07/17 04:40 97.2 125 23 103/86 95 Nasal Cannula 4.00 08/07/17 04:30 124 12 103/86 (92) 95 Nasal Cannula 2.00 08/07/17 04:15 133 27 100/66 (77) 94 Nasal Cannula 2.00 08/07/17 04:00 126 13 100/66 (77) 97 Nasal Cannula 2.00 08/07/17 03:45 103 10 81/49 (60) 97 Nasal Cannula 2.00 08/07/17 03:30 99 14 87/63 (71) 96 Nasal Cannula 2.00 08/07/17 03:15 100 12 103/68 (80) 95 Nasal Cannula 2.00 08/07/17 03:14 86 08/07/17 03:00 Nasal Cannula 3.00 94 08/07/17 03:00 91 24 89/62 (71) 91 Nasal Cannula 2.00 08/07/17 01:57 92 16 142/63 98 Nasal Cannula 2.00 08/07/17 01:14 99 Nasal Cannula 2.00 08/07/17 01:11 97.6 94 24 98/85 (89) 98 Room Air 08/07/17 01:11 Room Air General Appearance: Anxious, Moderate Distress HEENT: PERRL/EOMI, Pharynx Normal Neck: Full Range of Motion, Non Tender, Supple Respiratory: Chest Non Tender, Lungs Clear, Normal Breath Sounds, No Accessory Muscle Use Cardiovascular: Regular Rate, Rhythm, No Edema, Gallop/S4 Capillary Refill: Less Than 3 Seconds Gastrointestinal: non tender, soft Extremity: Normal Capillary Refill, Non Tender, No Pedal Edema Neurologic/Psychiatric: Alert, Oriented x3 Skin: Normal Color, Warm/Dry Results Lab Laboratory Tests 08/07/17 01:23 08/07/17 03:20 Assessment/Plan Assessment/Plan Acute ME s/p Cath -Cardiology is following Acute upper GIB with gastritis s/p EGD Anemia -Transfuse Hx of cardiac tumor post resection in 2003 Hypoxia -oxygen Hypotension - responding to IVF -Monitor 255 Clinical Quality Measures AMI/AHF: ASA po Prior to arrival: REBECCA De La Rosa DO Aug 07, 2017 06:51
[2017-08-07] MEDS: OMEGA 3 (FISH OIL) 1000 MG CAP PO SCH ×2 (07:00→17:14)
[2017-08-07] MEDS ORDERED: INFLUENZA TRIvalent 2017-2018 0.5 ML/45 MCG SYR IM ONE (09:00)
[2017-08-07] MEDS: meTOprolol TARTRATE 25 MG (LOPRESSOR) TABLET PO SCH ×2 (09:21→21:15)
[2017-08-07 10:42] LABS: HEMOGLOBIN 14.3 G/DL (11.5-16.0)
[2017-08-07] MEDS: ONDANSETRON 4 MG/2 ML (SDV) Z0FRAN IV PRN ×2 (11:35→21:44)
[2017-08-07] MEDS ORDERED: ACETAMINOPHEN 500 MG TAB (TYLENOL) ONE (11:41)
[2017-08-07] MEDS: CLOPIDOGREL 75 MG (PLAVIX) TABLET PO SCH (11:44)
[2017-08-07] MEDS: ASPIRIN E.C. 81 MG (ECOTRIN) TAB PO SCH (11:44)
[2017-08-07] MEDS ORDERED: ACETAMINOPHEN 500 MG TAB (TYLENOL) PO PRN (11:45)
[2017-08-07] MEDS ORDERED: CATHETER FLUSH 10 ML SYR IV PRN (11:45)
[2017-08-07] MEDS ORDERED: FUROSEMIDE 40 MG/4 ML INJ (LASIX) IVP ONE (13:45)
--- NOTE | 2017-08-07 14:14 | Diagnostic Imaging Report ---
INDICATION: Shortness of air. Time of exam 1:59 PM Correlation is made with prior exam from earlier the same day. Changes of median sternotomy are noted. An NG tube has been placed and passes below the diaphragm. The patient has developed central congestive changes and interstitial infiltrates consistent with CHF. No effusion or pneumothorax is seen. IMPRESSION: Development of congestive failure when compared with examination earlier the same day. Dictated by: Dictated on workstation # [id number]
[2017-08-07] MEDS ORDERED: FUROSEMIDE 40 MG/4 ML INJ (LASIX) IVP NR (14:30)
[2017-08-07] MEDS ORDERED: RT-ALBUTEROL/IPRATROPIUM 3 ML (DUONEB) VIAL INH SCH ×2 (14:30→21:00)
[2017-08-07 14:42] LABS: HEMOGLOBIN 14.7 G/DL (11.5-16.0)
[2017-08-07] MEDS ORDERED: CYAN500T2 PO (15:57)
[2017-08-07] MEDS ORDERED: CHOL100048 PO (15:57)
[2017-08-07] MEDS ORDERED: METO-333 PO (15:57)
[2017-08-07] MEDS ORDERED: IPRA3AMP IH (16:04)
[2017-08-07] MEDS ORDERED: RT-ALBUTEROL/IPRATROPIUM 3 ML (DUONEB) VIAL INH PRN (17:15)
[2017-08-07] MEDS ORDERED: MAGNESIUM CITRATE 300 ML BTL PO NR (18:45)
[2017-08-07] MEDS: ATORVASTATIN 80 MG (LIPITOR) TABLET PO SCH (21:14)
[2017-08-08] VITALS (26 sets, daily range): BP systolic 92–129; BP diastolic 46–98
[2017-08-08] MEDS: NS IV 1000 ML 1,000 ML IV SCH ×5 (01:37→23:29)
[2017-08-08 03:46] LABS: BASOPHILS % (AUTO) 0 % (0-10); EOSINOPHILS # (AUTO) 0.1 10^3/uL (0.0-0.3); EOSINOPHILS % (AUTO) 1 % (0-10); HEMATOCRIT 41 % (35-52); LYMPHOCYTES # (AUTO) 2.1 X 10^3 (1.0-4.0); LYMPHOCYTES % (AUTO) 21 % (12-44); MEAN CORPUSCULAR HEMOGLOBIN 31 PG (25-34); MEAN CORPUSCULAR HGB CONC 34 G/DL (32-36); MEAN CORPUSCULAR VOLUME 90 FL (80-99); MONOCYTES # (AUTO) 0.8 X 10^3 (0.0-1.0); MONOCYTES % (AUTO) 8 % (0-12); NEUTROPHILS # (AUTO) 7.2 X 10^3 (1.8-7.8); NEUTROPHILS % (AUTO) 71 % (42-75); PLATELET COUNT 107 10^3/uL (130-400); RED BLOOD COUNT 4.58 10^6/uL (4.35-5.85); RED CELL DISTRIBUTION WIDTH 14.7 % (10.0-14.5); WHITE BLOOD COUNT 10.2 10^3/uL (4.3-11.0)
[2017-08-08 04:08] LABS: CHOLESTEROL 170 MG/DL (< 200); HDL CHOLESTEROL 47 MG/DL (40-60); TRIGLYCERIDES 113 MG/DL (<150); VLDL CHOLESTEROL 23 MG/DL (5-40)
[2017-08-08 04:13] LABS: BUN/CREATININE RATIO 16; CALCIUM 8.3 MG/DL (8.5-10.1); CARBON DIOXIDE 25 MMOL/L (21-32); CHLORIDE 105 MMOL/L (98-107); CREATININE SERUM 0.88 MG/DL (0.60-1.30); GFR ESTIMATED > 60; GLUCOSE 99 MG/DL (70-105); MAGNESIUM 2.1 MG/DL (1.8-2.4); PHOSPHORUS 3.1 MG/DL (2.3-4.7); POTASSIUM 4.3 MMOL/L (3.6-5.0); SODIUM 141 MMOL/L (135-145)
--- NOTE | 2017-08-08 04:48 | Pulmonary Progress Note ---
Exam Exam Vital Signs Date Time Temp Pulse Resp B/P (MAP) Pulse Ox O2 Delivery O2 Flow Rate FiO2 08/08/17 04:00 89 16 98/64 (75) 94 Nasal Cannula 2.00 08/08/17 03:00 65 29 103/89 (94) 97 Nasal Cannula 2.00 08/08/17 02:00 89 28 104/68 (80) 95 Nasal Cannula 2.00 08/08/17 01:00 86 20 120/81 (94) 96 Nasal Cannula 2.00 08/08/17 01:00 86 08/08/17 00:00 87 24 104/78 (87) 95 Nasal Cannula 2.00 08/08/17 00:00 95 Nasal Cannula 2.00 08/08/17 00:00 97.4 Nasal Cannula 2.00 08/07/17 23:00 86 15 104/67 (79) 95 Nasal Cannula 2.00 08/07/17 22:00 97 19 105/78 (87) 94 Nasal Cannula 2.00 08/07/17 21:00 96 16 120/83 (95) 95 Nasal Cannula 2.00 08/07/17 20:00 97.9 Nasal Cannula 2.00 08/07/17 20:00 95 Nasal Cannula 2.00 08/07/17 20:00 113 26 123/79 (94) 95 Nasal Cannula 2.00 08/07/17 19:00 102 08/07/17 19:00 102 16 124/84 (97) 95 Nasal Cannula 2.00 08/07/17 18:00 104 27 149/96 (113) 95 Nasal Cannula 2.00 08/07/17 17:00 101 24 126/95 (105) 95 Nasal Cannula 2.00 08/07/17 16:52 98 Nasal Cannula 2.00 08/07/17 16:00 96 Nasal Cannula 2.00 08/07/17 16:00 100 24 139/94 (109) Room Air 2.00 08/07/17 16:00 98.6 08/07/17 15:00 111 25 145/101 (116) 34 Room Air 08/07/17 15:00 98 17 145/99 (114) 95 Room Air 3.00 08/07/17 14:00 102 29 153/99 (117) Room Air 08/07/17 13:00 96 18 111/90 (97) 93 Room Air 08/07/17 13:00 96 08/07/17 12:00 96 19 93 Room Air 3.00 08/07/17 12:00 94 Nasal Cannula 2.00 08/07/17 11:00 100.0 98 20 144/98 (113) 92 Room Air 08/07/17 10:00 93 25 121/87 (98) 96 Nasal Cannula 3.00 08/07/17 09:00 90 13 136/89 (105) 97 Nasal Cannula 3.00 08/07/17 08:00 96 Nasal Cannula 3.00 08/07/17 08:00 92 30 103/77 (86) 96 Nasal Cannula 2.00 08/07/17 08:00 92 31 103/77 (86) 96 Nasal Cannula 3.00 08/07/17 07:20 97.6 98 18 138/89 Nasal Cannula 3.00 08/07/17 07:06 97.4 98 8 102/68 94 Nasal Cannula 3.00 08/07/17 07:02 97.4 98 8 102/68 94 Nasal Cannula 3.00 08/07/17 07:02 97.4 92 8 102/68 94 Nasal Cannula 3.00 08/07/17 07:00 97.4 92 12 108/72 94 Nasal Cannula 3.00 08/07/17 07:00 97.8 08/07/17 07:00 102 08/07/17 07:00 105 30 108/72 (84) 94 Nasal Cannula 2.00 08/07/17 07:00 105 11 108/72 (84) 96 Nasal Cannula 3.00 08/07/17 06:15 90 12 78/57 (64) 95 Nasal Cannula 2.00 08/07/17 06:00 93 12 77/59 (65) 96 Nasal Cannula 2.00 08/07/17 06:00 98 18 91/61 (71) 94 Nasal Cannula 3.00 08/07/17 05:45 93 19 58/45 (49) 93 Nasal Cannula 2.00 08/07/17 05:30 105 23 103/87 (92) 87 Nasal Cannula 2.00 08/07/17 05:19 97.5 109 18 111/75 95 Nasal Cannula 3.00 08/07/17 05:15 118 25 98/69 (79) 97 Nasal Cannula 2.00 08/07/17 05:11 97.6 112 27 69/ 94 Nasal Cannula 3.00 08/07/17 05:00 84 19 122/84 (97) 96 Nasal Cannula 3.00 08/07/17 05:00 108 13 111/75 (87) 97 Nasal Cannula 2.00 08/07/17 04:55 97.6 96 17 77/65 96 Nasal Cannula 4.00 08/07/17 04:45 125 25 101/72 (82) 94 Nasal Cannula 2.00 I & O 08/08/17 07:00 Intake Total 150 ml Output Total 3955 ml Balance -3805 ml General Appearance: Anxious, Moderate Distress HEENT: PERRL/EOMI, Pharynx Normal Neck: Full Range of Motion, Non Tender, Supple Respiratory: Chest Non Tender, Lungs Clear, Normal Breath Sounds, No Accessory Muscle Use Cardiovascular: Regular Rate, Rhythm, No Edema, Gallop/S4 Capillary Refill: Less Than 3 Seconds Gastrointestinal: non tender, soft Extremity: Normal Capillary Refill, Non Tender, No Pedal Edema Neurologic/Psychiatric: Alert, Oriented x3 Skin: Normal Color, Warm/Dry Results Lab Laboratory Tests 08/07/17 01:23 08/07/17 03:20 08/07/17 10:35 08/07/17 14:36 08/07/17 22:18 08/08/17 03:15 Assessment/Plan Assessment/Plan Acute MD s/p Cath -Cardiology is following - 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 COPDAE -pt is feeling more SOB this morning. SVNs - increase to Q 6 -Add solumedrol Acute upper GIB with gastritis s/p EGD Anemia -Transfuse Hx of cardiac tumor post resection in 2003 Hypoxia -oxygen 233 Clinical Quality Measures AMI/AHF: ASA po Prior to arrival: No DVT/VTE Risk/Contraindication: Risk Factor Score Per Nursin RFS Level Per Nursing on Admit: 4+=Very High REBECCA CARRERO DO Aug 08, 2017 04:48
[2017-08-08] MEDS: PANTOPRAZOLE INJECTION 200 MG in D5W 100 ML IVPB 50 ML IV SCH (04:51)
[2017-08-08] MEDS ORDERED: methylPREDNISolone 40 MG/ML (Solu-MEDROL) VIAL IV SCH (05:00)
[2017-08-08] MEDS ORDERED: RT-ALBUTEROL/IPRATROPIUM 3 ML (DUONEB) VIAL INH SCH ×2 (06:00→09:00)
[2017-08-08] MEDS: OMEGA 3 (FISH OIL) 1000 MG CAP PO SCH ×2 (07:00→16:02)
--- NOTE | 2017-08-08 08:09 | Diagnostic Imaging Report ---
INDICATION: Chest pain. TIME OF EXAMINATION: 02:58 a.m. COMPARISON: Comparison is made with prior exam one day earlier. FINDINGS: The heart size is stable. There are changes of median sternotomy. The NG tube has been removed. There are congestive changes in both lungs, similar to yesterday. There is a small right effusion. No pneumothorax is seen. IMPRESSION: Continued changes of congestive failure and small right pleural effusion. Dictated by: Dictated on workstation # [id number]
--- NOTE | 2017-08-08 09:03 | Cardiology Progress Note ---
Subjective Date Seen by Provider: Aug 08, 2017 Time Seen by Provider: 08:58 Subjective/Events-last exam patient was seen and evaluated at that site, still having significant dyspnea. Had complex day after her acute myocardial infarction. Still dyspneic, denied chest pain, had EKG changes, troponin is still climbing. Decided to proceed with reevaluation of her coronary and evaluate stent patency Review of Systems General: No Chills, No Night Sweats, Fatigue, Malaise, No Appetite, No Other HEENT: No Head Aches, No Visual Changes, No Eye Pain, No Ear Pain, No Dysphasia , No Sinus Congestion, No Post Nasal Drip, No Sore Throat, No Other Pulmonary: Dyspnea, No Cough, No Pleuritic Chest Pain, No Other Cardiovascular: Orthopnea, No: Chest Pain, Palpitations, Paroxysmal Noc. Dyspnea, Edema, Lt Headedness, Other Objective-Cardiology Exam Last Set of Vital Signs Vital Signs 08/07/17 08/08/17 03:00 08:53 Temp 99.2 Pulse 99 Resp 32 B/P (MAP) 112/86 (95) Pulse Ox 97 O2 Delivery Nasal Cannula O2 Flow Rate 2.00 FiO2 94 Capillary Refill : Less Than 3 Seconds I&O Intake and Output 08/08/17 00:00 Intake Total 832 ml Output Total 3655 ml Balance -2823 ml Intake Oral 125 ml IV Total 0 ml Other 707 ml Output Urine Total 3650 ml Oral Regurgitation 5 ml # Voids 1 Daily Weight Change No General: Alert, Oriented X3, Cooperative, Moderate Distress HEENT: Atraumatic, PERRLA Neck: Other (JVD) Lungs: Normal Air Movement, Other (decrease breathing sound) Heart: Normal S1, Normal S2, No Murmurs, Other (Irregular rhythm, S3) Abdomen: Normal Bowel Sounds, Soft, No Tenderness, No Hepatosplenomegaly, No Masses Extremities: No Clubbing, No Cyanosis, No Edema, Normal Pulses, No Tenderness/ Swelling Skin: No Rashes, No Breakdown, No Significant Lesion Neuro: Normal Gait, Normal Speech, Strength at 5/5 X4 Ext, Normal Tone, Sensation Intact Psych/Mental Status: Mental Status NL, Mood NL Results Lab Laboratory Tests 08/07/17 10:35 08/07/17 14:36 08/07/17 22:18 08/08/17 03:15 A/P-Cardiology Admission Diagnosis Acute myocardial infarction Coronary artery disease Hypertension Cardiac tumor Assessment/Plan Acute myocardial infarction, ST depression in V1 through V4 with total R wave V1 through V2, ST elevation posterior wall and cardial infarction, status post emergency cardiac catheterization with stenting of the totally occluded circumflex artery with excellent results. Patient had hematemesis post intervention and hypotension, started on IV fluid and given protamine sulfate and 2 units blood transfusion, underwent EGD which showed clots in the gastric area, blood pressure has stabilized. Received large amount of fluid. Still having EKG changes and significantly dyspneic, I am planning to proceed with cardiac catheterization reevaluate her coronary anatomy Coronary artery disease, total occlusion of the circumflex artery status post emergency stenting and thrombectomy with excellent results. Has 90 percent stenosis in the proximal right coronary artery will be stented at a later point. Planning to repeat coronary angiogram and evaluate her anatomy due to EKG changes and hypotension Congestive heart failure, fluid overload. Acute left ventricular systolic dysfunction due to acute myocardial infarction, given Lasix last night, will give her additional dose of Lasix and evaluate her response. Upper GI bleed, hypotension, underwent EGD, may require another look prior to proceeding with intervention Hypertension, Status post hypotensive shock, received dopamine drip large amount of fluid. Monitor blood pressure, restarted on beta blockers Hyperlipidemia, started on Lipitor 80 mg daily. History of cardiac tumor, resection [place] [address] Norton, no follow-up with scrum coach Complex management due to the myocardial infarction and extensive coronary artery disease and hypotensive shock in addition to GI bleed. Clinical Quality Measures AMI/AHF: ASA po Prior to arrival: No DVT/VTE Risk/Contraindication: Risk Factor Score Per Nursin RFS Level Per Nursing on Admit: 4+=Very High TOI MONTAÑO MD Aug 08, 2017 09:03
[2017-08-08] MEDS ORDERED: FUROSEMIDE 40 MG/4 ML INJ (LASIX) IVP NR (09:15)
[2017-08-08 10:03] LABS: HEMOGLOBIN 14.3 G/DL (11.5-16.0); MEAN PLATELET VOLUME 12.1 FL (7.4-10.4); RED BLOOD COUNT 4.61 10^6/uL (4.35-5.85); RED CELL DISTRIBUTION WIDTH 14.6 % (10.0-14.5); WHITE BLOOD COUNT 10.7 10^3/uL (4.3-11.0)
[2017-08-08] MEDS ORDERED: LIDOCAINE 1% INJ 50 ML (XYLOCAINE) VIAL ONE (11:00)
[2017-08-08] MEDS ORDERED: HEParin (CATH LAB) 2,000 ML IV ONE (11:00)
[2017-08-08] MEDS: CLOPIDOGREL 75 MG (PLAVIX) TABLET PO SCH (11:11)
[2017-08-08] MEDS: ASPIRIN E.C. 81 MG (ECOTRIN) TAB PO SCH (11:11)
[2017-08-08] MEDS: meTOprolol TARTRATE 25 MG (LOPRESSOR) TABLET PO SCH ×2 (11:12→20:23)
[2017-08-08] MEDS ORDERED: PANTOPRAZOLE IV SCH ×2 (12:30)
[2017-08-08] MEDS ORDERED: SODIUM CHLORIDE IV SCH ×2 (12:30)
--- NOTE | 2017-08-08 12:34 | Cardiac Procedure Note-CS/ASA ---
Pre-Procedure Note Pre-Op Procedure Note H&P Reviewed The H&P was reviewed, patient examined and no changes noted. Date H&P Reviewed: Aug 08, 2017 Time H&P Reviewed: 12:33 Conscious Sedation Pre-Proced Time Reviewed: 12:33 ASA Class: 3 Airway Mallampati Classification: ([place] appropriate class) I. II. III, IV Lungs Heart ASA score ASA 1: a normal healthy patient ASA 2: a patient with a mild systemic disease (mid diabetes, controlled hypertension, obesity x ASA 3: a patient with a severe systemic disease that limits activity (angina , COPD, prior Myocardial infarction) ASA 4: a patient with an incapacitating disease that is a constant threat to life (CHF, renal failure) ASA 5: a moribund patient not expected to survive 24 hrs. (ruptured aneurysm) ASA 6: a declared brain patient whose organs are being harvested. For emergent operations, add the letter E after the classification Grade 3 Sedation Plan: Analgesia, Amnesia, Plan communicated to team members, Discussed options with patient/fam, Discussed risks with patient/fam Note The patient is an appropriate candidate to undergo the planned procedure, sedation, and anesthesia. The patient immediately re-assessed prior to indication. TOI MONTAÑO MD Aug 08, 2017 12:33
[2017-08-08] MEDS ORDERED: fentaNYL INJECTION 100 MCG/2 ML AMP ONE (12:47)
[2017-08-08] MEDS ORDERED: MIDAZOLAM 5 MG/5 ML (VERSED) VIAL ONE (12:47)
--- NOTE | 2017-08-08 13:01 | Progress Note-Standard ---
Standard Progress Note Progress Notes/Assess & Plan Date Seen by Provider: Aug 08, 2017 Time Seen by Provider: 11:25 Progress/Assessment & Plan hemodynamically stable. No more hematemesis. Reasonable to stop the Protonix drip. Cardiac catheterization plan. Will observe and repeat endoscopy, should there be any further symptoms Final Diagnosis hematemesis. Myocardial infarction JUAN FRANCISCO BURLESON MD Aug 08, 2017 1:01 pm
--- NOTE | 2017-08-08 13:19 | Cardiac Cath Report ---
Cardiac Cath Report Physician (s)/[facility] Painter (s) Physician TOI MONTAÑO MD Pre-Procedure Diagnosis Pre-Procedure Diagnosis: Coronary artery disease Post-Procedure Note Procedure Start Date: Aug 08, 2017 Name of Procedure: Coronary angiogram Findings/Procedure Note PROCEDURE NOTE: 76 years old lady admitted with acute ST elevation myocardial infarction involving the posterior wall, underwent emergency angina plasty and stenting to the circumflex artery postoperatively patient had upper GI bleed, was severely hypotensive responded to IV fluid and blood transfusion, she was given protamine sulfate to reverse heparin. On the next day patient went into flash pulmonary edema and heart failure, she had EKG changes similar to her initial presentation with tall R-wave in V1 and V2. I decided to take her back to the [facility] and evaluate the patency of the stent in the circumflex artery. After explaining the procedure to the patient, all pros and cons were explained, all questions were answered. The patient signed the consent and then she was placed on the cardiac catheterization laboratory. The patient was placed on the cardiac catheterization laboratory. Groin was prepped SL fashion local anesthesia was used. Sheath placed in the right femoral artery. Alee left catheter was advanced and left coronary system multiple views were obtained At the end of the procedure the sheath was removed. Closure device was used FINDINGS: Hemodynamics Aorta 132/61/95 ANATOMY: Left Main is free of obstructive disease Left Anterior Descending is tortuous with mild disease Left Circumflex has a patent stent proximally with small vessel disease distally Right Coronory Artery was not evaluated known to have severe proximal right coronary artery stenosis CONCLUSION: 1. Patent stent in the circumflex artery, small vessel disease distally 2. The right coronary artery was not evaluated, known to have severe proximal stenosis DISCUSSION AND RECOMMENDATION: I will continue maximizing medical therapy Anesthesia Type: Conscious Sedation Estimated blood loss (mL): 10 ml Contrast Amount: 12 ml Total Radiation Dose: 29 mGy Post-Procedure Diagnosis Post-operative diagnosis: Coronary artery disease TOI MONTAÑO MD Aug 08, 2017 13:19
[2017-08-08] MEDS ORDERED: PATIENT MAY USE OWN MEDS, ALL PO SCH (13:30)
[2017-08-08] MEDS: methylPREDNISolone 40 MG/ML (Solu-MEDROL) VIAL IV SCH ×2 (14:17→20:23)
[2017-08-08] MEDS: lisINopril 5 MG (PRINIVIL) TABLET PO SCH (14:17)
[2017-08-08] MEDS ORDERED: HEParin (CATH LAB) 2,000 UNIT/1,000 ML BAG IV ONE (14:42)
[2017-08-08] MEDS ORDERED: NS 1000 ML IV BAG IV ONE (14:42)
[2017-08-08] MEDS ORDERED: LIDOCAINE 1% INJ 20 ML (XYLOCAINE) VIAL INJ ONE (14:44)
[2017-08-08] MEDS ORDERED: NITROGLYCERIN DRIP 25 MG/D5W 250 ML BTL IV ONE (14:44)
[2017-08-08] MEDS: FUROSEMIDE 20 MG (LASIX) TAB PO SCH ×2 (15:10→16:02)
[2017-08-08] MEDS: RT-ALBUTEROL/IPRATROPIUM 3 ML (DUONEB) VIAL INH SCH ×2 (15:51→18:43)
[2017-08-08] MEDS: ATORVASTATIN 80 MG (LIPITOR) TABLET PO SCH (20:23)
[2017-08-09] VITALS (11 sets, daily range): BP systolic 112–150; BP diastolic 74–113
[2017-08-09] MEDS: methylPREDNISolone 40 MG/ML (Solu-MEDROL) VIAL IV SCH (03:00)
[2017-08-09] MEDS: RT-ALBUTEROL/IPRATROPIUM 3 ML (DUONEB) VIAL INH SCH ×2 (03:07→09:21)
[2017-08-09 03:46] LABS: BASOPHILS % (AUTO) 0 % (0-10); EOSINOPHILS % (AUTO) 0 % (0-10); HEMATOCRIT 43 % (35-52); HEMOGLOBIN 14.4 G/DL (11.5-16.0); LYMPHOCYTES # (AUTO) 0.8 X 10^3 (1.0-4.0); LYMPHOCYTES % (AUTO) 6 % (12-44); MEAN CORPUSCULAR HEMOGLOBIN 31 PG (25-34); MEAN CORPUSCULAR HGB CONC 34 G/DL (32-36); MEAN CORPUSCULAR VOLUME 91 FL (80-99); MEAN PLATELET VOLUME 12.1 FL (7.4-10.4); MONOCYTES # (AUTO) 0.3 X 10^3 (0.0-1.0); MONOCYTES % (AUTO) 2 % (0-12); NEUTROPHILS # (AUTO) 12.9 X 10^3 (1.8-7.8); NEUTROPHILS % (AUTO) 92 % (42-75); PLATELET COUNT 115 10^3/uL (130-400); RED BLOOD COUNT 4.72 10^6/uL (4.35-5.85); RED CELL DISTRIBUTION WIDTH 14.3 % (10.0-14.5)
[2017-08-09 04:09] LABS: BUN/CREATININE RATIO 23; CALCIUM 9.1 MG/DL (8.5-10.1); CARBON DIOXIDE 24 MMOL/L (21-32); CHLORIDE 104 MMOL/L (98-107); CREATININE SERUM 0.86 MG/DL (0.60-1.30); GFR ESTIMATED > 60; GLUCOSE 177 MG/DL (70-105); MAGNESIUM 2.1 MG/DL (1.8-2.4); PHOSPHORUS 2.9 MG/DL (2.3-4.7); SODIUM 140 MMOL/L (135-145)
[2017-08-09] MEDS: NS IV 1000 ML 1,000 ML IV SCH (04:44)
[2017-08-09] MEDS: OMEGA 3 (FISH OIL) 1000 MG CAP PO SCH (06:16)
--- NOTE | 2017-08-09 06:55 | Pulmonary Progress Note ---
Subjective Time Seen by Provider: 07:09 Subjective/Events-last exam No complications noted. Exam Exam Vital Signs Date Time Temp Pulse Resp B/P (MAP) Pulse Ox O2 Delivery O2 Flow Rate FiO2 08/09/17 06:00 90 134/82 (99) 90 Nasal Cannula 2.00 08/09/17 05:00 94 112/74 (87) 95 Nasal Cannula 2.00 08/09/17 04:00 94 Nasal Cannula 2.00 08/09/17 04:00 90 140/94 (109) 93 Nasal Cannula 2.00 08/09/17 04:00 98.0 08/09/17 03:07 96 Nasal Cannula 2.00 08/09/17 03:00 79 132/80 (97) 96 Nasal Cannula 2.00 08/09/17 02:00 88 119/81 (94) 96 Nasal Cannula 2.00 08/09/17 01:00 92 08/09/17 01:00 89 132/86 (101) 96 Nasal Cannula 2.00 08/09/17 00:00 89 113/75 (88) 95 Nasal Cannula 2.00 08/09/17 00:00 97.3 08/09/17 00:00 94 Nasal Cannula 2.00 08/08/17 23:00 91 13 97/67 (77) 97 Nasal Cannula 2.00 08/08/17 22:00 98 15 92/46 (61) 95 Nasal Cannula 2.00 08/08/17 21:00 105 19 117/78 (91) 93 Nasal Cannula 2.00 08/08/17 20:00 94 Nasal Cannula 2.00 08/08/17 20:00 105 23 93/73 (80) 90 Nasal Cannula 2.00 08/08/17 20:00 97.4 Nasal Cannula 2.00 08/08/17 19:00 104 12 113/70 (84) 92 Nasal Cannula 2.00 08/08/17 19:00 103 08/08/17 18:44 91 Nasal Cannula 2.00 08/08/17 17:51 100 12 129/98 (108) 92 Nasal Cannula 2.00 08/08/17 17:00 96 14 110/73 (85) 92 Nasal Cannula 2.00 08/08/17 16:06 95 Nasal Cannula 2.00 08/08/17 16:04 97.8 97 12 126/87 (100) 95 Nasal Cannula 2.00 2/21/18 15:51 95 Nasal Cannula 2.00 08/08/17 15:00 87 19 126/93 (104) 97 Nasal Cannula 2.00 08/08/17 14:30 86 11 113/73 (86) 96 Nasal Cannula 2.00 08/08/17 14:15 90 13 111/72 (85) 95 Nasal Cannula 2.00 08/08/17 14:00 91 11 101/63 (76) 96 Nasal Cannula 2.00 08/08/17 13:45 90 12 114/72 (86) 96 Nasal Cannula 2.00 08/08/17 13:37 101 08/08/17 13:35 87 118/81 (93) Nasal Cannula 2.00 08/08/17 13:00 Nasal Cannula 2.00 08/08/17 12:00 Nasal Cannula 2.00 08/08/17 11:31 96 Nasal Cannula 2.00 08/08/17 11:25 98.6 08/08/17 11:00 97 23 119/92 (101) 94 Nasal Cannula 2.00 08/08/17 10:00 100 17 125/92 (103) 91 Nasal Cannula 2.00 08/08/17 09:32 95 Nasal Cannula 2.00 08/08/17 08:53 99.2 99 32 112/86 (95) 97 Nasal Cannula 2.00 08/08/17 08:45 96 Nasal Cannula 2.00 08/08/17 08:00 91 26 112/86 (95) 96 Nasal Cannula 2.00 08/08/17 07:00 96 13 115/89 (98) 96 Nasal Cannula 2.00 08/08/17 07:00 96 I & O 08/09/17 07:00 Intake Total 2280 ml Output Total 1725 ml Balance 555 ml General Appearance: No Apparent Distress, Anxious HEENT: PERRL/EOMI, Pharynx Normal Neck: Full Range of Motion, Non Tender, Supple Respiratory: Chest Non Tender, Lungs Clear, Normal Breath Sounds, No Accessory Muscle Use Cardiovascular: Regular Rate, Rhythm, No Edema, Gallop/S4 Capillary Refill: Less Than 3 Seconds Gastrointestinal: non tender, soft Extremity: Normal Capillary Refill, Non Tender, No Pedal Edema Neurologic/Psychiatric: Alert, Oriented x3 Skin: Normal Color, Warm/Dry Results Lab Laboratory Tests 08/07/17 10:35 08/07/17 14:36 08/07/17 22:18 08/08/17 03:15 08/08/17 09:56 08/09/17 03:25 Assessment/Plan Assessment/Plan Acute CO s/p Cath -Cardiology is following - s/p cath - COPDAE -pt is feeling more SOB this morning. SVNs - to Q 6 -add advair -Add solumedrol --D/c solumedrol -Pt will be ok without steroid taper -Pt will need oxygen qualification testing prior to discharge Acute upper GIB with gastritis s/p EGD -Surgery following Anemia -Transfuse Hx of cardiac tumor post resection in 2003 Hypoxia -oxygen I will have pt f/u with me in 2 wks. 232 Clinical Quality Measures AMI/AHF: ASA po Prior to arrival: No DVT/VTE Risk/Contraindication: Risk Factor Score Per Nursin RFS Level Per Nursing on Admit: 4+=Very High REBECCA CARRERO DO Aug 09, 2017 06:55
[2017-08-09] MEDS ORDERED: PANTOPRAZOLE 40 MG (PROTONIX) TAB PO SCH ×2 (07:00)
[2017-08-09] MEDS ORDERED: RT-ADVAIR HFA 115/21 MCG PER PUFF IH SCH (08:00)
[2017-08-09] MEDS ORDERED: PANT40TA3 PO (08:20)
[2017-08-09] MEDS ORDERED: FURO20TA4 PO (08:20)
[2017-08-09] MEDS ORDERED: FLUT12AE4 IH (08:20)
[2017-08-09] MEDS ORDERED: ATOR80TA76 PO (08:20)
[2017-08-09] MEDS ORDERED: CLOP75TA28 PO (08:20)
[2017-08-09] MEDS ORDERED: LISI-556 PO (08:20)
[2017-08-09] MEDS ORDERED: ASPI-983 PO (08:20)
[2017-08-09] MEDS ORDERED: OMG1KC PO (08:20)
--- NOTE | 2017-08-09 08:21 | Discharge Inst-Post CATH ---
Discharge Inst-CATH Post Cardiac Cath D/C Inst Follow Up/Plan Appointment with Dr. Carcamo's office next week CARDIAC CATH DISCHARGE INSTRUCTIONS *Hold Metformin for 48 hours post heart cath. ACTIVITY * Go Home directly and rest. * Limit activity of the leg (or wrist if it was used) for 7 days including aerobics, swimming, jogging, bicycling, etc. * Restrict stair-climbing for 7 days if possible, if not, climb up with your non -cath leg, then bring together on the same step. * Avoid lifting, pushing, pulling or excessive movement of the affected extremity for 7 days. * Customary sexual activity may be resumed after 2 days-use caution not to use a position that strains or causes pain to the affected extremity. * No driving for 24 hours. * NO SMOKING. * Avoid straining for bowel movements for 7 days. * Gentle walking on level ground is allowed. * Returning to work will depend on the type of procedure and the results. Your doctor will discuss this with you. CALL YOUR DOCTOR FOR ANY OF THE FOLLOWING: *If bleeding from the puncture site occurs- Apply gentle pressure to site with clean cloth and call your doctor or EMS. * If a knot or lump forms under the skin, increases in size, or causes pain. * If bruising appears to be worsening or moving further down your leg instead of disappearing. * Temperature above 101 F. CARE OF YOUR GROIN INCISION; * Bruising or purple discoloration of the skin near the puncture site is common. * You may shower only, no bathtub bathing for 5 days. Be careful to avoid slipping as your leg may feel stiff. * If a closure device was used on your femoral artery, please see the attached guide regarding care of the device and your leg. * REMOVE the dressing from your groin the next day after your procedure in the shower. CARE OF YOUR WRIST INCISION; * Bruising or purple discoloration of the skin near the puncture site is common. * You may shower. * DO NOT submerge wrist. * Remove dressing in 24 hours. TOI CARCAMO MD Aug 09, 2017 08:21
--- NOTE | 2017-08-09 08:25 | Cardiology Discharge Summary ---
Diagnosis/Chief Complaint Date of Admission Aug 07, 2017 at 02:37 Date of Discharge Admission Diagnosis Acute myocardial infarction Coronary artery disease Hypertension Cardiac tumor Discharge Diagnosis Acute myocardial infarction Coronary artery disease Hypertension COPD Congestive heart failure, acute left ventricular systolic dysfunction, ischemic cardiomyopathy Chief Complaint/HPI Chief Complaint/HPI 76 years old lady admitted with acute ST elevation myocardial infarction, underwent emergency angioplasty and stenting, upon arrival to ICU she started having hematemesis, Dr. Hardy was called, received 2 units blood transfusion large amount of fluid, was on dopamine drip due to cardiogenic shock. Improved , continue to have EKG changes and shortness of breath, got worse the next day with her dyspnea, her bleeding has stopped, I decided to take her back and take another look at her coronaries to make sure that the stent is open due to the fact that she received protamine sulfate to reverse the heparin. This morning she is feeling better but she still having shortness of breath. I answered all her questions Discharge Summary Hospital Course Hospital Course Acute myocardial infarction, ST depression in V1 through V4 with total R wave V1 through V2, ST elevation posterior wall and cardial infarction, status post emergency cardiac catheterization with stenting of the totally occluded circumflex artery with excellent results. Patient had hematemesis post intervention and hypotension, started on IV fluid and given protamine sulfate and 2 units blood transfusion, underwent EGD which showed clots in the gastric area, blood pressure has stabilized. Received large amount of fluid. Repeat coronary angiogram showed patent stent in the circumflex artery with good flow. Coronary artery disease, total occlusion of the circumflex artery status post emergency stenting and thrombectomy with excellent results. Has 90 percent stenosis in the proximal right coronary artery will be stented at a later point. Congestive heart failure, fluid overload. Acute left ventricular systolic dysfunction due to acute myocardial infarction, I will continue Lasix as an outpatient Upper GI bleed, hypotension, underwent EGD, will follow-up with Dr. Hardy Hypertension, Status post hypotensive shock, received dopamine drip large amount of fluid. Restarted on her medication. Continue to monitor Shortness of breath, may need home oxygen, seen by Dr. Saeed Hyperlipidemia, started on Lipitor 80 mg daily. History of cardiac tumor, resection [place] [address] Norton, no follow-up with automotive sales professional Complex management due to the myocardial infarction and extensive coronary artery disease and hypotensive shock in addition to GI bleed. Labs Laboratory Tests 08/07/17 01:23: White Blood Count 11.2H, Mean Platelet Volume 11.7H, Lymphocytes # (Auto) 4.1H, Glucose Level 128H 08/07/17 03:20: White Blood Count 12.5H, Mean Platelet Volume 11.9H, Glucose Level 151H, Activated Partial Thromboplast Time > 200*H, Troponin I 41.99*H, LDL Cholesterol Direct 138H 08/07/17 06:15: 08/07/17 10:35: 08/07/17 13:57: 08/07/17 14:36: 08/07/17 22:18: 08/08/17 03:15: Red Cell Distribution Width 14.7H, Platelet Count 107L, Mean Platelet Volume 12.0H, Calcium Level 8.3L, Troponin I 43.90*H, B-Type Natriuretic Peptide 947.1H 08/08/17 09:56: Red Cell Distribution Width 14.6H, Platelet Count 105L, Mean Platelet Volume 12.1H 08/09/17 03:25: Platelet Count 115L, Mean Platelet Volume 12.1H, White Blood Count 14.0H, Neutrophils (%) (Auto) 92H, Lymphocytes (%) (Auto) 6L, Neutrophils # (Auto) 12.9H, Lymphocytes # (Auto) 0.8L, Blood Urea Nitrogen 20H, Glucose Level 177H Procedures None. Discharge Physical Examination Allergies: Coded Allergies: No Known Drug Allergies (Unverified , 11/02/09) Vitals & I&Os Vital Signs Date Time Temp Pulse Resp B/P (MAP) Pulse Ox O2 Delivery O2 Flow Rate FiO2 08/09/17 06:00 90 134/82 (99) 90 Nasal Cannula 2.00 08/09/17 04:00 98.0 08/08/17 23:00 13 08/07/17 03:00 94 General Appearance: Alert, Oriented X3, Cooperative, No Acute Distress HEENT: Atraumatic, PERRLA Respiratory: Clear to Auscultation, Normal Air Movement Cardiovascular: Regular Rate, Normal S1, Normal S2, No Murmurs Abdominal: Normal Bowel Sounds, Soft, No Tenderness, No Hepatosplenomegaly, No Masses Extremities: No Clubbing, No Cyanosis, No Edema, Normal Pulses, No Tenderness/ Swelling Skin: No Rashes, No Breakdown, No Significant Lesion Neuro: Normal Gait, Normal Speech, Strength at 5/5 X4 Ext, Normal Tone, Sensation Intact, Cranial Nerves 3-12 NL, Reflexes 2+ Psych/Mental Status: Mental Status NL, Mood NL Discharge Home Medications Reviewed and agree with Discharge Medication list on patient's Discharge Instruction sheet Instructions to Patient/Family Please see electronic discharge instructions given to patient. Clinical Quality Measures AMI/AHF: ASA po Prior to arrival: No DVT/VTE Risk/Contraindication: Risk Factor Score Per Nursin RFS Level Per Nursing on Admit: 4+=Very High TOI MONTAÑO MD Aug 09, 2017 08:25
[2017-08-09] MEDS: CLOPIDOGREL 75 MG (PLAVIX) TABLET PO SCH (09:28)
[2017-08-09] MEDS: ASPIRIN E.C. 81 MG (ECOTRIN) TAB PO SCH (09:28)
[2017-08-09] MEDS: lisINopril 5 MG (PRINIVIL) TABLET PO SCH (09:28)
[2017-08-09] MEDS: meTOprolol TARTRATE 25 MG (LOPRESSOR) TABLET PO SCH (09:28)
[2017-08-09] MEDS: FUROSEMIDE 20 MG (LASIX) TAB PO SCH (09:28)
--- NOTE | 2017-08-09 14:40 | Diagnostic Imaging Report ---
INDICATION: Chest pain. Comparison made with prior examination from 08/08/2017. FINDINGS: Heart size is stable. There is some venous congestion. There are patchy bibasal infiltrates. There is no pleural effusion or pneumothorax. The mediastinum is unremarkable. IMPRESSION: Patchy bibasal infiltrates. Moderate central pulmonary venous congestion. Dictated by: Dictated on workstation # [id number]
[2017-08-10] MEDS ORDERED: LISI-556 PO (10:11)
[2017-08-10] MEDS ORDERED: FURO20TA4 PO (10:12)
[2017-08-10] MEDS ORDERED: ASPI-983 PO (10:13)
[2017-08-10] MEDS ORDERED: PANT40TA3 PO (10:13)
[2017-08-10] MEDS ORDERED: CLOP75TA28 PO (10:14)
[2017-08-10] MEDS ORDERED: ATOR80TA76 PO (10:15)
[2017-08-10] MEDS ORDERED: FLUT12AE4 IH (10:15)
[2017-08-10] MEDS ORDERED: OMEG100032 PO (10:16)
[2017-08-11] MEDS ORDERED: TRAZ-28 PO (08:39)
[2017-08-11] MEDS ORDERED: APIX2.5T PO (08:39)
== END 2017-08-09 10:30 | disposition home or self-care (01) | DRG 246 ==
LOC: EDUNIT# 01:06 → ER 01:07 → CATH 01:30 → ICU 02:37
PROVIDERS: ADMIT Internal Medicine Cardiovascular Disease; ATTEND Internal Medicine Cardiovascular Disease
PROC: 02C03ZZ Extirpation of Matter from Coronary Artery, One Artery, Percutaneous Approach (ICD-10-PCS; 2017-08-07)
PROC: 4A023N7 Measurement of Cardiac Sampling and Pressure, Left Heart, Percutaneous Approach (ICD-10-PCS; 2017-08-07)
PROC: B2111ZZ Fluoroscopy of Multiple Coronary Arteries using Low Osmolar Contrast (ICD-10-PCS; 2017-08-07)
PROC: B2151ZZ Fluoroscopy of Left Heart using Low Osmolar Contrast (ICD-10-PCS; 2017-08-07)
PROC: 0DJ08ZZ Inspection of Upper Intestinal Tract, Via Natural or Artificial Opening Endoscopic (ICD-10-PCS; 2017-08-07)
PROC: 027034Z Dilation of Coronary Artery, One Artery with Drug-eluting Intraluminal Device, Percutaneous Approach (ICD-10-PCS; principal; 2017-08-07 05:30)
PROC: B2101ZZ Fluoroscopy of Single Coronary Artery using Low Osmolar Contrast (ICD-10-PCS; 2017-08-08)
DX: I21.29 ST elevation (STEMI) myocardial infarction involving other sites (principal); I25.10 Atherosclerotic heart disease of native coronary artery without angina pectoris; I50.21 Acute systolic (congestive) heart failure; R57.8 Other shock; K29.01 Acute gastritis with bleeding; I49.3 Ventricular premature depolarization; I11.0 Hypertensive heart disease with heart failure; J43.9 Emphysema, unspecified; I27.20 Pulmonary hypertension, unspecified; I08.1 Rheumatic disorders of both mitral and tricuspid valves; R09.02 Hypoxemia; I95.9 Hypotension, unspecified; E78.5 Hyperlipidemia, unspecified; M19.91 Primary osteoarthritis, unspecified site; D64.9 Anemia, unspecified; Z87.891 Personal history of nicotine dependence; Z79.02 Long term (current) use of antithrombotics/antiplatelets; Z79.01 Long term (current) use of anticoagulants; Z87.01 Personal history of pneumonia (recurrent)
CPT/HCPCS: 36415; 71045; 80048; 80053; 80061; 83735; 83874; 83880; 84100; 84484; 85014; 85018; 85025; 85027; 85610; 85730; 86850; 86900; 86901; 86920; 87081; 93005; 93041; 93306; 93454; 93458; 94640; 96374; 96375

== ENCOUNTER 2017-08-17 10:14 | Day surgery (SDC) | payer MEDICARE, OTHER ==
[~2017-08-17] VITALS: Ht 157.5 cm; Wt 58.5 kg
[~2017-08-17 10:14] MED LIST changes: +APIX2.5T PO; +ASPI-983 PO; +ATOR80TA76 PO; +CHOL100048 PO; +CLOP75TA28 PO; +CYAN500T2 PO; +FLUT12AE4 IH; +FURO20TA4 PO; +IPRA3AMP IH; +LISI-556 PO; +OMEG100032 PO; +OMG1KC PO; +PANT40TA3 PO; +TRAZ-28 PO
[2017-08-17] MEDS ORDERED: NS IV 500 ML 500 ML IV PRN (10:35)
[2017-08-17 10:44] VITALS: BP 124/69
[2017-08-17] MEDS ORDERED: HURRICAINE EXT TUBE (BENZOCAINE) XX PRN (10:45)
--- NOTE | 2017-08-17 11:03 | Conscious Sedation/ASA ---
Conscious Sedation Pre-Proced Time Reviewed: 11:03 ASA Class: 2 Airway Mallampati Classification: ([place] appropriate class) I. II. III, IV Lungs Heart ASA score ASA 1: a normal healthy patient ASA 2: a patient with a mild systemic disease (mid diabetes, controlled hypertension, obesity ASA 3: a patient with a severe systemic disease that limits activity (angina , COPD, prior Myocardial infarction) ASA 4: a patient with an incapacitating disease that is a constant threat to life (CHF, renal failure) ASA 5: a moribund patient not expected to survive 24 hrs. (ruptured aneurysm) ASA 6: a declared brain patient whose organs are being harvested. For emergent operations, add the letter E after the classification Grade 1 Sedation Plan: Discussed options with patient/fam Note The patient is an appropriate candidate to undergo the planned procedure, sedation, and anesthesia. The patient immediately re-assessed prior to indication. JUAN FRANCISCO BURLESON MD Aug 17, 2017 11:03 am
[2017-08-17] MEDS ORDERED: HURRICAINE EXT TUBE (BENZOCAINE) ONE (11:09)
[2017-08-17] MEDS ORDERED: MIDAZOLAM 2 MG/2 ML (VERSED) VIAL ONE ×5 (11:09)
[2017-08-17] MEDS ORDERED: fentaNYL INJECTION 100 MCG/2 ML AMP ONE ×2 (11:09)
[2017-08-17] MEDS: fentaNYL INJECTION 100 MCG/2 ML AMP IVP PRN ×2 (11:26→11:29)
[2017-08-17] MEDS: MIDAZOLAM 2 MG/2 ML (VERSED) VIAL IVP PRN ×2 (11:27→11:30)
--- NOTE | 2017-08-17 11:40 | Endo Procedure Record ---
Endo Procedure Report Date of Procedure Last Colonoscopy: No Aug 17, 2017 Surgeon (s) JUAN FRANCISCO BURLESON MD Post Procedure/Op Diagnosis Multiple antral erosions Procedure Performed EGD with antral biopsy for H. pylori Description of Procedure Anesthesia Type: Conscious Sedation Specimen(s) collected/removed antral mucosa for H. pylori Description of the Procedure Indication for the procedure: This lady developed hematemesis immediately following cardiac catheterization and stent placement to address acute myocardial infarction, about 10 days ago. She is due to receive another stent in 5 days. She returned for follow-up endoscopy. Informed consent was obtained after reviewing the procedure in detail. Description of procedure: She was placed in left lateral decubitus position and her vital signs were monitored. Conscious sedation was achieved using Versed and fentanyl. The flexible gastroscope was introduced down the esophagus, past the stomach, into the proximal duodenum. Findings: Esophagus: A short hiatal hernia without any inflammation Stomach: Multiple shallow erosions were found at the antrum. There was no active bleeding. Biopsy for H. pylori was obtained. Duodenum: Normal She tolerated the procedure well and was taken back to the nursing area in a stable condition. Impression: Coronary artery disease, pending stent placement. History of hematemesis a week ago. Multiple antral erosions. Will treat with proton pump inhibitors. Copies To: TOI MNOTAÑO MD, XAVIER M MD Aug 17, 2017 11:40 am
--- NOTE | 2017-08-17 11:41 | Discharge Inst-Simple/Standard ---
Discharge Inst-Standard Discharge Medications New, Converted or Re-Newed RX: Other Patient Instructions/Follow Up Plan of Care/Instructions/FU: Please call for Carafate 1 g 3 times a day for 10 days with no refill. Activity as Tolerated: Yes Discharge Diet: No Restrictions JUAN FRANCISCO BURLESON MD Aug 17, 2017 11:41 am
[2017-08-17 12:05] VITALS: BP 121/70
[2017-08-17 12:30] VITALS: BP 128/79
[2017-08-17 12:35] VITALS: BP 128/79
== END 2017-08-17 12:40 | disposition home or self-care (01) ==
LOC: ENDO 10:14
PROVIDERS: ATTEND Surgery
DX: K27.4 Chronic or unspecified peptic ulcer, site unspecified, with hemorrhage (principal); K44.9 Diaphragmatic hernia without obstruction or gangrene; I25.10 Atherosclerotic heart disease of native coronary artery without angina pectoris; I48.91 Unspecified atrial fibrillation; I08.1 Rheumatic disorders of both mitral and tricuspid valves; I10 Essential (primary) hypertension; J43.9 Emphysema, unspecified; I25.2 Old myocardial infarction; Z87.891 Personal history of nicotine dependence; Z95.5 Presence of coronary angioplasty implant and graft

== ENCOUNTER → 2017-08-20 | Outpatient (CLI) | payer MEDICARE, OTHER ==
[~2017-08-20] MED LIST changes: +OXYC-471 PO; +SUCR1TAB36 PO
--- NOTE | 2017-08-20 19:03 | Diagnostic Imaging Report ---
INDICATION: Peripheral vascular disease. FINDINGS: The ankle-brachial index within the posterior tibial artery on the right is 1.04 and within the DP is 0.87. On the left, posterior tibial index is 0.68. The dorsalis pedis could not be visualized. IMPRESSION: Findings compatible with at least moderately severe peripheral vascular disease on the left. Recommend clinical correlation and if warranted, follow-up imaging. Dictated by: Dictated on workstation # [id number]
== END ==
LOC: RAD 11:51
PROVIDERS: ATTEND Surgery
DX: I73.9 Peripheral vascular disease, unspecified (principal)
CPT/HCPCS: 93922

== ENCOUNTER 2017-08-22 07:45 | Day surgery (SDC) | payer MEDICARE, OTHER ==
[2017-08-22] VITALS (11 sets, daily range): BP systolic 99–146; BP diastolic 55–77
[~2017-08-22] VITALS: Ht 157.5 cm; Wt 59.9 kg
[~2017-08-22 07:45] MED LIST changes: -OXYC-471 PO; -SUCR1TAB36 PO
--- OUTSIDE RECORDS SUMMARY | 2017-08-22 07:50 | XMS REPORT | Continuity of Care Document ---
Author Author [facility] Organization [facility] Address Unknown Phone Unavailable Allergies Active Description Code Type Severity Reaction Onset Reported/Identified Relationship to Patient Clinical Status Yes No Known Drug Allergies [id number] Drug Allergy Unknown N/A 11/02/2009 Medications There is no data. Problems Date Dx Coded Attending Type Code Diagnosis Diagnosed By 10/14/2010 Ot 491.22 10/14/2010 Ot 786.05 12/17/2010 Ot 277.4 12/17/2010 Ot 397.0 12/17/2010 Ot 401.9 12/17/2010 Ot 496 12/17/2010 Ot 785.6 12/17/2010 Ot 786.59 12/17/2010 Ot 790.95 12/17/2010 Ot V15.82 12/17/2010 Ot 305.1 12/17/2010 Ot 466.0 12/17/2010 Ot 780.60 11/10/2013 OCTAVIO CUNNINGHAM DO Ot 397.0 TRICUSPID VALVE DISEASE 11/10/2013 OCTAVIO CUNNINGHAM DO Ot 401.9 HYPERTENSION NOS 11/10/2013 OCTAVIO CUNNINGHAM DO Ot 424.0 MITRAL VALVE DISORDER 11/10/2013 OCTAVIO CUNNINGHAM DO Ot 482.9 BACTERIAL PNEUMONIA NOS 11/10/2013 OCTAVIO CUNNINGHAM DO Ot 491.21 OBSTR CHRONIC BRONCHITIS, W (ACUTE) EXAC 11/10/2013 OCTAVIO CUNNINGHAM DO Ot 799.02 HYPOXEMIA 11/10/2013 OCTAVIO CUNNINGHAM DO Ot V15.82 HISTORY OF TOBACCO USE 02/22/2015 THERESA ISRAEL DO Ot 486 PNEUMONIA, ORGANISM NOS 02/22/2015 THERESA ISRAEL DO Ot 496 CHR AIRWAY OBSTRUCT NEC 02/22/2015 THERESA ISRAEL DO Ot 518.0 PULMONARY COLLAPSE 02/22/2015 THERESA ISRAEL DO Ot V15.82 HISTORY OF TOBACCO USE 04/06/2015 THERESA ISRAEL DO Ot A49.9 BACTERIAL INFECTION, UNSPECIFIED 04/06/2015 THERESA ISRAEL DO Ot I10 ESSENTIAL (PRIMARY) HYPERTENSION 04/06/2015 THERESA ISRAEL DO Ot J01.00 ACUTE MAXILLARY SINUSITIS, UNSPECIFIED 04/06/2015 THERESA ISRAEL DO Ot M75.52 BURSITIS OF LEFT SHOULDER 09/14/2015 THERESA ISRAEL DO Ot R91.8 10/06/2015 Ot R91.8 OTHER NONSPECIFIC ABNORMAL FINDING OF MARYLOU 10/22/2015 Ot R91.8 OTHER NONSPECIFIC ABNORMAL FINDING OF M[place] 08/07/2017 Ot R91.8 OTHER NONSPECIFIC ABNORMAL FINDING OF M[place] 08/07/2017 TOI MONTAÑO MD Ot I08.1 RHEUMATIC DISORDERS OF BOTH MITRAL AND T 08/07/2017 TOI MONTAÑO MD Ot I10 ESSENTIAL (PRIMARY) HYPERTENSION 08/07/2017 TOI MONTAÑO MD Ot I21.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 08/07/2017 TOI MONTAÑO MD Ot I25.10 ATHSCL HEART DISEASE OF [place] CORONARY 08/07/2017 TOI MONTAÑO MD Ot I27.20 PULMONARY HYPERTENSION, UNSPECIFIED 08/07/2017 TOI MONTAÑO MD Ot I49.3 VENTRICULAR PREMATURE DEPOLARIZATION 08/07/2017 TOI MONTAÑO MD Ot J43.9 EMPHYSEMA, UNSPECIFIED 08/07/2017 TOI MONTAÑO MD Ot K29.01 ACUTE GASTRITIS WITH BLEEDING 08/07/2017 TOI MONTAÑO MD Ot M19.91 PRIMARY OSTEOARTHRITIS, UNSPECIFIED SITE 08/07/2017 TOI MONTAÑO MD Ot R57.8 OTHER SHOCK 08/07/2017 TOI MONTAÑO MD Ot Z87.01 PERSONAL HISTORY OF PNEUMONIA (RECURRENT 08/07/2017 TOI MONTAÑO MD Ot Z87.891 PERSONAL HISTORY OF NICOTINE DEPENDENCE 08/08/2017 TOI MONTAÑO MD Ot I08.1 RHEUMATIC DISORDERS OF BOTH MITRAL AND T 08/08/2017 TOI MONTAÑO MD Ot I10 ESSENTIAL (PRIMARY) HYPERTENSION 08/08/2017 TOI MONTAÑO MD Ot I21.29 STEMI INVOLVING OTH SITES 08/08/2017 TOI MONTAÑO MD Ot I25.10 ATHSCL HEART DISEASE OF [place] CORONARY 08/08/2017 TOI MONTAÑO MD Ot I27.20 PULMONARY HYPERTENSION, UNSPECIFIED 08/08/2017 TOI MONTAÑO MD Ot I49.3 VENTRICULAR PREMATURE DEPOLARIZATION 08/08/2017 TOI MONTAÑO MD Ot J43.9 EMPHYSEMA, UNSPECIFIED 08/08/2017 TOI MONTAÑO MD Ot K29.01 ACUTE GASTRITIS WITH BLEEDING 08/08/2017 TOI MONTAÑO MD Ot M19.91 PRIMARY OSTEOARTHRITIS, UNSPECIFIED SITE 08/08/2017 TOI MONTAÑO MD Ot R57.8 OTHER SHOCK 08/08/2017 TOI MONTAÑO MD Ot Z87.01 PERSONAL HISTORY OF PNEUMONIA (RECURRENT 08/08/2017 TOI MONTAÑO MD Ot Z87.891 PERSONAL HISTORY OF NICOTINE DEPENDENCE 08/09/2017 TOI MONTAÑO MD Ot D64.9 ANEMIA, UNSPECIFIED 08/09/2017 TOI MONTAÑO MD Ot E78.5 HYPERLIPIDEMIA, UNSPECIFIED 08/09/2017 TOI MONTAÑO MD Ot I08.1 RHEUMATIC DISORDERS OF BOTH MITRAL AND T 08/09/2017 TOI MONTAÑO MD Ot I10 ESSENTIAL (PRIMARY) HYPERTENSION 08/09/2017 TOI MONTAÑO MD Ot I21.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 08/09/2017 TOI MONTAÑO MD Ot I25.10 ATHSCL HEART DISEASE OF [place] CORONARY 08/09/2017 TOI MONTAÑO MD Ot I27.20 PULMONARY HYPERTENSION, UNSPECIFIED 08/09/2017 TOI MONTAÑO MD Ot I49.3 VENTRICULAR PREMATURE DEPOLARIZATION 08/09/2017 TOI MONTAÑO MD Ot I50.21 ACUTE SYSTOLIC (CONGESTIVE) HEART FAILUR 08/09/2017 TOI MONTAÑO MD Ot I95.9 HYPOTENSION, UNSPECIFIED 08/09/2017 TOI MONTAÑO MD, Ot J43.9 EMPHYSEMA, UNSPECIFIED 08/09/2017 TOI MONTAÑO MD Ot K29.01 ACUTE GASTRITIS WITH BLEEDING 08/09/2017 TOI MONTAÑO MD Ot M19.91 PRIMARY OSTEOARTHRITIS, UNSPECIFIED SITE 08/09/2017 TOI MONTAÑO MD Ot R09.02 HYPOXEMIA 08/09/2017 TOI MONTAÑO MD Ot R57.8 OTHER SHOCK 08/09/2017 TOI MONTAÑO MD Ot Z79.01 STAFFING MANAGER (CURRENT) USE OF 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 08/09/2017 TOI MONTAÑO MD Ot Z79.02 STAFFING MANAGER (CURRENT) USE OF ANTITHROMBOTI 08/09/2017 TOI MONTAÑO MD Ot Z87.01 PERSONAL HISTORY OF PNEUMONIA (RECURRENT 08/09/2017 TOI MONTAÑO MD Ot Z87.891 PERSONAL HISTORY OF NICOTINE DEPENDENCE 08/09/2017 TOI MONTAÑO MD Ot D64.9 ANEMIA, UNSPECIFIED 08/09/2017 TOI MONTAÑO MD Ot E78.5 HYPERLIPIDEMIA, UNSPECIFIED 08/09/2017 TOI MONTAÑO MD Ot I08.1 RHEUMATIC DISORDERS OF BOTH MITR[place] AND T 08/09/2017 TOI MONTAÑO MD Ot I10 ESSENTIAL (PRIMARY) HYPERTENSION 08/09/2017 TOI MONTAÑO MD Ot I11.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 08/09/2017 TOI MONTAÑO MD Ot I21.29 STEMI INVOLVING [facility] SITES 08/09/2017 TOI MONTAÑO MD Ot I25.10 ATHSCL HEART DISEASE OF [place] CORONARY 08/09/2017 TOI MONTAÑO MD Ot I27.20 PULMONARY HYPERTENSION, UNSPECIFIED 08/09/2017 TOI MONTAÑO MD Ot I49.3 VENTRICULAR PREMATURE DEPOLARIZATION 08/09/2017 TOI MONTAÑO MD Ot I50.21 ACUTE SYSTOLIC (CONGESTIVE) HEART FAILUR 08/09/2017 TOI MONTAÑO MD Ot I95.9 HYPOTENSION, UNSPECIFIED 08/09/2017 TOI MONTAÑO MD Ot J43.9 EMPHYSEMA, UNSPECIFIED 08/09/2017 TOI MONTAÑO MD Ot K29.01 ACUTE GASTRITIS WITH BLEEDING 08/09/2017 TOI MONTAÑO MD Ot M19.91 PRIMARY OSTEOARTHRITIS, UNSPECIFIED SITE 08/09/2017 TOI MONTAÑO MD Ot R09.02 HYPOXEMIA 08/09/2017 TOI MONTAÑO MD Ot R57.8 OTHER SHOCK 08/09/2017 TOI MONTAÑO MD Ot Z79.01 STAFFING MANAGER (CURRENT) USE OF 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 08/09/2017 TOI MONTAÑO MD Ot Z79.02 STAFFING MANAGER (CURRENT) USE OF ANTITHROMBOTI 08/09/2017 TOI MONTAÑO MD Ot Z87.01 PERSONAL HISTORY OF PNEUMONIA (RECURRENT 08/09/2017 SABRA REYES, TOI Almendarez Ot Z87.891 PERSONAL HISTORY OF NICOTINE DEPENDENCE 08/10/2017 THERESA ISRAEL DO Ot R91.8 OTHER NONSPECIFIC ABNORMAL FINDING OF [place] 08/10/2017 Ot R91.8 OTHER NONSPECIFIC ABNORMAL FINDING OF [place] 08/11/2017 FRANNY CARRILOL MD Ot E78.00 PURE HYPERCHOLESTEROLEMIA, UNSPECIFIED 08/11/2017 FRANNY CARRILLO MD Ot E78.2 MIXED HYPERLIPIDEMIA 08/11/2017 FRANNY CARRILLO MD Ot E87.8 [facility] DISORDERS OF ELECTROLYTE AND FLUID B 08/11/2017 FRANNY CARRILLO MD Ot F41.9 ANXIETY DISORDER, UNSPECIFIED 08/11/2017 FRANNY CARRILLO MD, Ot I10 ESSENTIAL (PRIMARY) HYPERTENSION 08/11/2017 FRANNY CARRILLO MD, Ot I25.10 ATHSCL HEART DISEASE OF [place] CORONARY 08/11/2017 FRANNY CARRILLO MD, Ot I25.2 OLD MYOCARDIAL INFARCTION 08/11/2017 FRANNY CARRILLO MD, Ot I48.0 PAROXYSMAL ATRIAL FIBRILLATION 08/11/2017 FRANNY CARRILLO MD, Ot I50.31 ACUTE DIASTOLIC (CONGESTIVE) HEART FAILU 08/11/2017 FRANNY CARRILLO MD, Ot J44.9 CHRONIC OBSTRUCTIVE PULMONARY DISEASE, U 08/11/2017 FRANNY CARRILLO MD Ot K29.51 UNSPECIFIED CHRONIC GASTRITIS WITH BLEED 08/11/2017 FRANNY CARRILLO MD Ot R06.03 ACUTE RESPIRATORY DISTRESS 08/11/2017 FRANNY CARRILLO MD Ot R09.02 HYPOXEMIA 08/11/2017 FRANNY CARRILLO MD, Ot Z79.82 SENIOR LIVING (CURRENT) USE OF ASPIRIN 08/11/2017 FRANNY CARRILLO MD, Ot Z79.899 OTHER STAFFING MANAGER (CURRENT) DRUG THERAPY 08/11/2017 FRANNY CARRILLO MD, Ot Z87.891 PERSONAL HISTORY OF NICOTINE DEPENDENCE 08/11/2017 FRANNY CARRILLO MD Ot Z95.5 PRESENCE OF CORONARY ANGIOPLASTY IMPLANT 08/11/2017 FRANNY CARRILLO MD Ot E78.00 PURE HYPERCHOLESTEROLEMIA, UNSPECIFIED 08/11/2017 GERARDO MD, FRANNY M Ot E78.2 MIXED HYPERLIPIDEMIA 08/11/2017 FRANNY CARRILLO MD Ot E87.8 OTH DISORDERS OF ELECTROLYTE AND FLUID B 08/11/2017 FRANNY CARRILLO MD Ot F41.9 ANXIETY DISORDER, UNSPECIFIED 08/11/2017 FRANNY CARRILLO MD Ot I10 ESSENTIAL (PRIMARY) HYPERTENSION 08/11/2017 FRANNY CARRILLO MD Ot I25.10 ATHSCL HEART DISEASE OF [place] CORONARY 08/11/2017 FRANNY CARRILLO MD, Ot I25.2 OLD MYOCARDIAL INFARCTION 08/11/2017 FRANNY CARRILLO MD Ot I48.0 PAROXYSMAL ATRIAL FIBRILLATION 08/11/2017 FRANNY CARRILLO MD Ot I50.31 ACUTE DIASTOLIC (CONGESTIVE) HEART FAILU 08/11/2017 FRANNY CARRILLO MD Ot J44.9 CHRONIC OBSTRUCTIVE PULMONARY DISEASE, U 08/11/2017 FRANNY CARRILLO MD Ot K29.51 UNSPECIFIED CHRONIC GASTRITIS WITH BLEED 08/11/2017 FRANNY CARRILLO MD Ot R06.03 ACUTE RESPIRATORY DISTRESS 08/11/2017 FRANNY CARRILLO MD Ot R09.02 HYPOXEMIA 08/11/2017 FRANNY CARRILLO MD Ot Z79.82 STAFFING MANAGER (CURRENT) USE OF ASPIRIN 08/11/2017 FRANNY CARRILLO MD Ot Z79.899 OTHER SENIOR LIVING (CURRENT) DRUG THERAPY 08/11/2017 FRANNY CARRILLO MD Ot Z87.891 PERSONAL HISTORY OF NICOTINE DEPENDENCE 08/11/2017 FRANNY CARRILLO MD Ot Z95.5 PRESENCE OF CORONARY ANGIOPLASTY IMPLANT 08/14/2017 FRANNY CARRILLO MD Ot E78.00 PURE HYPERCHOLESTEROLEMIA, UNSPECIFIED 08/14/2017 FRANNY CARRILLO MD Ot E78.2 MIXED HYPERLIPIDEMIA 08/14/2017 FRANNY CARRILLO MD Ot E87.8 OTH DISORDERS OF ELECTROLYTE AND FLUID B 08/14/2017 FRANNY CARRILLO MD Ot F41.9 ANXIETY DISORDER, UNSPECIFIED 08/14/2017 FRANNY CARRILLO MD Ot I10 ESSENTIAL (PRIMARY) HYPERTENSION 08/14/2017 FRANNY CARRILLO MD Ot I25.10 ATHSCL HEART DISEASE OF [place] CORONARY 08/14/2017 FRANNY CARRILLO MD, Ot I25.2 OLD MYOCARDIAL INFARCTION 08/14/2017 FRANNY CARRILLO MD Ot I48.0 PAROXYSMAL ATRIAL FIBRILLATION 08/14/2017 FRANNY CARRILLO MD, Ot I50.31 ACUTE DIASTOLIC (CONGESTIVE) HEART FAILU 08/14/2017 FRANNY CARRILLO MD, Ot J44.9 CHRONIC OBSTRUCTIVE PULMONARY DISEASE, U 08/14/2017 FRANNY CARRILLO MD Ot K29.51 UNSPECIFIED CHRONIC GASTRITIS WITH BLEED 08/14/2017 FRANNY CARRILLO MD Ot R06.03 ACUTE RESPIRATORY DISTRESS 08/14/2017 FRANNY CARRILLO MD, Ot R09.02 HYPOXEMIA 08/14/2017 FRANNY CARRILLO MD, Ot Z79.82 SENIOR LIVING (CURRENT) USE OF ASPIRIN 08/14/2017 FRANNY CARRILLO MD, Ot Z79.899 OTHER SENIOR LIVING (CURRENT) DRUG THERAPY 08/14/2017 FRANNY CARRILLO MD, Ot Z87.891 PERSONAL HISTORY OF NICOTINE DEPENDENCE 08/14/2017 FRANNY CARRILLO MD Ot Z95.5 PRESENCE OF CORONARY ANGIOPLASTY IMPLANT 08/17/2017 JUAN FRANCISCO BURLESON MD Ot I08.1 RHEUMATIC DISORDERS OF BOTH MITRAL AND T 08/17/2017 JUAN FRANCISCO BURLESON MD Ot I10 ESSENTIAL (PRIMARY) HYPERTENSION 08/17/2017 JUAN FRANCISCO BURLESON MD Ot I25.10 ATHSCL HEART DISEASE OF [place] CORONARY 08/17/2017 JUAN FRANCISCO BURLESON MD Ot I25.2 OLD MYOCARDIAL INFARCTION 08/17/2017 JUAN FRANCISCO BURLESON MD Ot I48.91 UNSPECIFIED ATRIAL FIBRILLATION 08/17/2017 JUAN FRANCISCO BURLESON MD Ot J43.9 EMPHYSEMA, UNSPECIFIED 08/17/2017 JUAN FRANCISCO BURLESON MD Ot K27.4 CHRONIC OR UNSP PEPTIC ULCER, SITE UNSP, 08/17/2017 JUAN FRANCISCO BURLESON MD Ot K44.9 DIAPHRAGMATIC HERNIA WITHOUT OBSTRUCTION 08/17/2017 JUAN FRANCISCO BURLESON MD Ot Z87.891 PERSONAL HISTORY OF NICOTINE DEPENDENCE 08/17/2017 JUAN FRANCISCO BURLESON MD Ot Z95.5 PRESENCE OF CORONARY ANGIOPLASTY IMPLANT 08/20/2017 JUAN FRANCISCO BURLESON MD Ot I08.1 RHEUMATIC DISORDERS OF BOTH MITRAL AND T 08/20/2017 JUAN FRANCISCO BURLESON MD Ot I10 ESSENTIAL (PRIMARY) HYPERTENSION 08/20/2017 JUAN FRANCISCO BURLESON MD, Ot I25.10 ATHSCL HEART DISEASE OF [place] CORONARY 08/20/2017 JUAN FRANCISCO BURLESON MD, Ot I25.2 OLD MYOCARDIAL INFARCTION 08/20/2017 JUAN FRANCISCO BURLESON MD Ot I48.91 UNSPECIFIED ATRIAL FIBRILLATION 08/20/2017 JUAN FRANCISCO BURLESON MD Ot J43.9 EMPHYSEMA, UNSPECIFIED 08/20/2017 JUAN FRANCISCO BURLESON MD Ot K27.4 CHRONIC OR UNSP PEPTIC ULCER, SITE UNSP, 08/20/2017 JUAN FRANCISCO BURLESON MD Ot K44.9 DIAPHRAGMATIC HERNIA WITHOUT OBSTRUCTION 08/20/2017 JUAN FRANCISCO BURLESON MD Ot Z87.891 PERSONAL HISTORY OF NICOTINE DEPENDENCE 08/20/2017 JUAN FRANCISCO BURLESON MD, Ot Z95.5 PRESENCE OF CORONARY ANGIOPLASTY IMPLANT 08/21/2017 THERESA ISRAEL DO Ot R91.8 OTHER NONSPECIFIC ABNORMAL FINDING OF M[place] 08/21/2017 Ot R91.8 OTHER NONSPECIFIC ABNORMAL FINDING OF [place] 08/21/2017 REBECCA CARRERO DO Ot J44.9 CHRONIC OBSTRUCTIVE PULMONARY DISEASE, U 08/21/2017 JUAN FRANCISCO BURLESON MD, Ot I73.9 PERIPHERAL VASCULAR DISEASE, UNSPECIFIED Procedures Code Description Performed By Performed On [id number] DILATION OF 1 COR ART WITH DRUG-ELUT INT 08/07/2017 [id number] EXTIRPATION OF MATTER FROM 1 COR ART, PE 08/07/2017 [id number] INSPECTION OF UPPER INTESTINAL TRACT, EN 08/07/2017 [id number] MEASURE OF CARDIAC SAMPL PRESSURE, L H 08/07/2017 [id number] FLUOROSCOPY OF MULT COR ART USING L OSM 08/07/2017 [id number] FLUOROSCOPY OF LEFT HEART USING LOW OSMO 08/07/2017 [id number] FLUOROSCOPY OF SINGLE CORONARY ARTERY US 08/08/2017 Results Test Result Range Complete blood count (CBC) with automated white blood cell (WBC) differential - 08/07/17 01:23 Blood leukocytes automated count (number/volume) 11.2 10*3/uL 4.3-11.0 Blood erythrocytes automated count (number/volume) 4.93 10*6/uL 4.35-5.85 Venous blood hemoglobin measurement (mass/volume) 14.8 g/dL 11.5-16.0 Blood hematocrit (volume fraction) 44 % 35-52 Automated erythrocyte mean corpuscular volume 89 [foz_us] 80-99 Automated erythrocyte mean corpuscular hemoglobin (mass per erythrocyte) 30 pg 25-34 Automated erythrocyte mean corpuscular hemoglobin concentration measurement ( mass/volume) 34 g/dL 32-36 Automated erythrocyte distribution width ratio 13.8 % 10.0-14.5 Automated blood platelet count (count/volume) 186 10*3/uL 130-400 Automated blood platelet mean volume measurement 11.7 [foz_us] 7.4-10.4 Automated blood neutrophils/100 leukocytes 52 % 42-75 Automated blood lymphocytes/100 leukocytes 36 % 12-44 Blood monocytes/100 leukocytes 9 % 0-12 Automated blood eosinophils/100 leukocytes 3 % 0-10 Automated blood basophils/100 leukocytes 0 % 0-10 Blood neutrophils automated count (number/volume) 5.9 10*3 1.8-7.8 Blood lymphocytes automated count (number/volume) 4.1 10*3 1.0-4.0 Blood monocytes automated count (number/volume) 1.0 10*3 0.0-1.0 Automated eosinophil count 0.3 10*3/uL 0.0-0.3 Automated blood basophil count (count/volume) 0.1 10*3/uL 0.0-0.1 PT panel in platelet poor plasma by coagulation assay - 08/07/17 01:23 Prothrombin time (PT) in platelet poor plasma by coagulation assay 12.2 s 12.2-14.7 INR in platelet poor plasma or blood by coagulation assay 0.9 0.8-1.4 Activated partial thromboplastin time (aPTT) in platelet poor plasma bycoagulation assay - 08/07/17 01:23 Activated partial thromboplastin time (aPTT) in platelet poor plasma bycoagulation assay 25 s 24-35 Comprehensive metabolic panel - 08/07/17 01:23 Serum or plasma sodium measurement (moles/volume) 142 mmol/L 135-145 Serum or plasma potassium measurement (moles/volume) 4.6 mmol/L 3.6-5.0 Serum or plasma chloride measurement (moles/volume) 105 mmol/L 98-107 Carbon dioxide 27 mmol/L 21-32 Serum or plasma anion gap determination (moles/volume) 10 mmol/L 5-14 Serum or plasma urea nitrogen measurement (mass/volume) 18 mg/dL 7-18 Serum or plasma creatinine measurement (mass/volume) 1.05 mg/dL 0.60-1.30 Serum or plasma urea nitrogen/creatinine mass ratio 17 NRG Serum or plasma creatinine measurement with calculation of estimated glomerular filtration rate 51 NRG Serum or plasma glucose measurement (mass/volume) 128 mg/dL 70-105 Serum or plasma calcium measurement (mass/volume) 9.7 mg/dL 8.5-10.1 Serum or plasma total bilirubin measurement (mass/volume) 0.5 mg/dL 0.1-1.0 Serum or plasma alkaline phosphatase measurement (enzymatic activity/volume) 81 U/L 40-136 Serum or plasma aspartate aminotransferase measurement (enzymatic activity/ volume) 22 U/L 5-34 Serum or plasma alanine aminotransferase measurement (enzymatic activity/volume ) 15 U/L 0-55 Serum or plasma protein measurement (mass/volume) 7.3 g/dL 6.4-8.2 Serum or plasma albumin measurement (mass/volume) 4.2 g/dL 3.2-4.5 Magnesium - 08/07/17 01:23 Magnesium 2.4 mg/dL 1.8-2.4 Myoglobin, serum - 08/07/17 01:23 Myoglobin, serum 82.1 ng/mL 10.0-92.0 Serum or plasma troponin i.cardiac measurement (mass/volume) - 08/07/17 01:23 Serum or plasma troponin i.cardiac measurement (mass/volume) < ng/ mL <0.30 Myoglobin, serum - 08/07/17 01:23 Myoglobin, serum 82.1 ng/mL 10.0-92.0 Automated blood complete blood count (hemogram) panel - 08/07/17 03:20 Blood leukocytes automated count (number/volume) 12.5 10*3/uL 4.3-11.0 Blood erythrocytes automated count (number/volume) 4.81 10*6/uL 4.35-5.85 Venous blood hemoglobin measurement (mass/volume) 14.2 g/dL 11.5-16.0 Blood hematocrit (volume fraction) 43 % 35-52 Automated erythrocyte mean corpuscular volume 89 [foz_us] 80-99 Automated erythrocyte mean corpuscular hemoglobin (mass per erythrocyte) 30 pg 25-34 Automated erythrocyte mean corpuscular hemoglobin concentration measurement ( mass/volume) 33 g/dL 32-36 Automated erythrocyte distribution width ratio 13.8 % 10.0-14.5 Automated blood platelet count (count/volume) 174 10*3/uL 130-400 Automated blood platelet mean volume measurement 11.9 [foz_us] 7.4-10.4 FRESH FROZEN PLASMA - 08/07/17 03:20 FRESH FROZEN PLASMA TRANSFUSED 08/07/17 0643 NRG RED CELLS LEUKO REDUCED AS1 - 08/07/17 03:20 RED CELLS LEUKO REDUCED AS1 TRANSFUSED 08/07/17 0505 NR Blood type T Indirect antibody screen panel - 08/07/17 03:20 ABO+Rh group BP NRG Transfusion band number [id number] Blood group antibody screen NEGATIVE NR PT panel in platelet poor plasma by coagulation assay - 08/07/17 03:20 Prothrombin time (PT) in platelet poor plasma by coagulation assay 14.1 s 12.2-14.7 INR in platelet poor plasma or blood by coagulation assay 1.1 0.8-1.4 Activated partial thromboplastin time (aPTT) in platelet poor plasma bycoagulation assay - 08/07/17 03:20 Activated partial thromboplastin time (aPTT) in platelet poor plasma bycoagulation assay > s 24-35 Whole blood basic metabolic panel - 08/07/17 03:20 Serum or plasma sodium measurement (moles/volume) 139 mmol/L 135-145 Serum or plasma potassium measurement (moles/volume) 4.7 mmol/L 3.6-5.0 Serum or plasma chloride measurement (moles/volume) 105 mmol/L 98-107 Carbon dioxide 24 mmol/L 21-32 Serum or plasma anion gap determination (moles/volume) 10 mmol/L 5-14 Serum or plasma urea nitrogen measurement (mass/volume) 17 mg/dL 7-18 Serum or plasma creatinine measurement (mass/volume) 0.97 mg/dL 0.60-1.30 Serum or plasma urea nitrogen/creatinine mass ratio 18 NRG Serum or plasma creatinine measurement with calculation of estimated glomerular filtration rate 56 NRG Serum or plasma glucose measurement (mass/volume) 151 mg/dL 70-105 Serum or plasma calcium measurement (mass/volume) 8.8 mg/dL 8.5-10.1 Lipid 1996 panel - 08/07/17 03:20 Serum or plasma triglyceride measurement (mass/volume) 71 mg/dL <150 Serum or plasma cholesterol measurement (mass/volume) 192 mg/dL < 200 Serum or plasma cholesterol in HDL measurement (mass/volume) 44 mg/ dL 40-60 Cholesterol in LDL [mass/volume] in serum or plasma by direct assay 138 mg/dL 1-129 Serum or plasma cholesterol in VLDL measurement (mass/volume) 14 mg/ dL 5-40 Serum or plasma troponin i.cardiac measurement (mass/volume) - 08/07/17 03:20 Serum or plasma troponin i.cardiac measurement (mass/volume) 41.99 ng/mL <0.30 Activated partial thromboplastin time (aPTT) in platelet poor plasma bycoagulation assay - 08/07/17 06:15 Activated partial thromboplastin time (aPTT) in platelet poor plasma bycoagulation assay 26 s 24-35 Methicillin resistant Staphylococcus aureus (MRSA) screening culture - 09:15 Methicillin resistant Staphylococcus aureus (MRSA) screening culture NEG NRG Whole blood hemoglobin and hematocrit panel - 08/07/17 10:35 Venous blood hemoglobin measurement (mass/volume) 14.3 g/dL 11.5-16.0 Blood hematocrit (volume fraction) 42 % 35-52 Whole blood hemoglobin and hematocrit panel - 08/07/17 14:36 Venous blood hemoglobin measurement (mass/volume) 14.7 g/dL 11.5-16.0 Blood hematocrit (volume fraction) 43 % 35-52 Whole blood hemoglobin and hematocrit panel - 08/07/17 22:18 Venous blood hemoglobin measurement (mass/volume) 14.0 g/dL 11.5-16.0 Blood hematocrit (volume fraction) 41 % 35-52 Complete blood count (CBC) with automated white blood cell (WBC) differential - 08/08/17 03:15 Blood leukocytes automated count (number/volume) 10.2 10*3/uL 4.3-11.0 Blood erythrocytes automated count (number/volume) 4.58 10*6/uL 4.35-5.85 Venous blood hemoglobin measurement (mass/volume) 14.0 g/dL 11.5-16.0 Blood hematocrit (volume fraction) 41 % 35-52 Automated erythrocyte mean corpuscular volume 90 [foz_us] 80-99 Automated erythrocyte mean corpuscular hemoglobin (mass per erythrocyte) 31 pg 25-34 Automated erythrocyte mean corpuscular hemoglobin concentration measurement ( mass/volume) 34 g/dL 32-36 Automated erythrocyte distribution width ratio 14.7 % 10.0-14.5 Automated blood platelet count (count/volume) 107 10*3/uL 130-400 Automated blood platelet mean volume measurement 12.0 [foz_us] 7.4-10.4 Automated blood neutrophils/100 leukocytes 71 % 42-75 Automated blood lymphocytes/100 leukocytes 21 % 12-44 Blood monocytes/100 leukocytes 8 % 0-12 Automated blood eosinophils/100 leukocytes 1 % 0-10 Automated blood basophils/100 leukocytes 0 % 0-10 Blood neutrophils automated count (number/volume) 7.2 10*3 1.8-7.8 Blood lymphocytes automated count (number/volume) 2.1 10*3 1.0-4.0 Blood monocytes automated count (number/volume) 0.8 10*3 0.0-1.0 Automated eosinophil count 0.1 10*3/uL 0.0-0.3 Automated blood basophil count (count/volume) 0.0 10*3/uL 0.0-0.1 Lipid 1996 panel - 08/08/17 03:15 Serum or plasma triglyceride measurement (mass/volume) 113 mg/dL <150 Serum or plasma cholesterol measurement (mass/volume) 170 mg/dL < 200 Serum or plasma cholesterol in HDL measurement (mass/volume) 47 mg/ dL 40-60 Cholesterol in LDL [mass/volume] in serum or plasma by direct assay 110 mg/dL 1-129 Serum or plasma cholesterol in VLDL measurement (mass/volume) 23 mg/ dL 5-40 Whole blood basic metabolic panel - 08/08/17 03:15 Serum or plasma sodium measurement (moles/volume) 141 mmol/L 135-145 Serum or plasma potassium measurement (moles/volume) 4.3 mmol/L 3.6-5.0 Serum or plasma chloride measurement (moles/volume) 105 mmol/L 98-107 Carbon dioxide 25 mmol/L 21-32 Serum or plasma anion gap determination (moles/volume) 11 mmol/L 5-14 Serum or plasma urea nitrogen measurement (mass/volume) 14 mg/dL 7-18 Serum or plasma creatinine measurement (mass/volume) 0.88 mg/dL 0.60-1.30 Serum or plasma urea nitrogen/creatinine mass ratio 16 NRG Serum or plasma creatinine measurement with calculation of estimated glomerular filtration rate > NRG Serum or plasma glucose measurement (mass/volume) 99 mg/dL 70-105 Serum or plasma calcium measurement (mass/volume) 8.3 mg/dL 8.5-10.1 Serum or plasma phosphate measurement (mass/volume) - 08/08/17 03:15 Serum or plasma phosphate measurement (mass/volume) 3.1 mg/dL 2.3-4.7 Magnesium - 08/08/17 03:15 Magnesium 2.1 mg/dL 1.8-2.4 Serum or plasma troponin i.cardiac measurement (mass/volume) - 08/08/17 03:15 Serum or plasma troponin i.cardiac measurement (mass/volume) 43.90 ng/mL <0.30 Serum or plasma lithium measurement (moles/volume) - 08/08/17 03:15 BNP level 947.1 pg/mL <100.0 Automated blood complete blood count (hemogram) panel - 08/08/17 09:56 Blood leukocytes automated count (number/volume) 10.7 10*3/uL 4.3-11.0 Blood erythrocytes automated count (number/volume) 4.61 10*6/uL 4.35-5.85 Venous blood hemoglobin measurement (mass/volume) 14.3 g/dL 11.5-16.0 Blood hematocrit (volume fraction) 42 % 35-52 Automated erythrocyte mean corpuscular volume 91 [foz_us] 80-99 Automated erythrocyte mean corpuscular hemoglobin (mass per erythrocyte) 31 pg 25-34 Automated erythrocyte mean corpuscular hemoglobin concentration measurement ( mass/volume) 34 g/dL 32-36 Automated erythrocyte distribution width ratio 14.6 % 10.0-14.5 Automated blood platelet count (count/volume) 105 10*3/uL 130-400 Automated blood platelet mean volume measurement 12.1 [foz_us] 7.4-10.4 Complete blood count (CBC) with automated white blood cell (WBC) differential - 08/09/17 03:25 Blood leukocytes automated count (number/volume) 14.0 10*3/uL 4.3-11.0 Blood erythrocytes automated count (number/volume) 4.72 10*6/uL 4.35-5.85 Venous blood hemoglobin measurement (mass/volume) 14.4 g/dL 11.5-16.0 Blood hematocrit (volume fraction) 43 % 35-52 Automated erythrocyte mean corpuscular volume 91 [foz_us] 80-99 Automated erythrocyte mean corpuscular hemoglobin (mass per erythrocyte) 31 pg 25-34 Automated erythrocyte mean corpuscular hemoglobin concentration measurement ( mass/volume) 34 g/dL 32-36 Automated erythrocyte distribution width ratio 14.3 % 10.0-14.5 Automated blood platelet count (count/volume) 115 10*3/uL 130-400 Automated blood platelet mean volume measurement 12.1 [foz_us] 7.4-10.4 Automated blood neutrophils/100 leukocytes 92 % 42-75 Automated blood lymphocytes/100 leukocytes 6 % 12-44 Blood monocytes/100 leukocytes 2 % 0-12 Automated blood eosinophils/100 leukocytes 0 % 0-10 Automated blood basophils/100 leukocytes 0 % 0-10 Blood neutrophils automated count (number/volume) 12.9 10*3 1.8-7.8 Blood lymphocytes automated count (number/volume) 0.8 10*3 1.0-4.0 Blood monocytes automated count (number/volume) 0.3 10*3 0.0-1.0 Automated eosinophil count 0.0 10*3/uL 0.0-0.3 Automated blood basophil count (count/volume) 0.0 10*3/uL 0.0-0.1 Whole blood basic metabolic panel - 08/09/17 03:25 Serum or plasma sodium measurement (moles/volume) 140 mmol/L 135-145 Serum or plasma potassium measurement (moles/volume) 4.0 mmol/L 3.6-5.0 Serum or plasma chloride measurement (moles/volume) 104 mmol/L 98-107 Carbon dioxide 24 mmol/L 21-32 Serum or plasma anion gap determination (moles/volume) 12 mmol/L 5-14 Serum or plasma urea nitrogen measurement (mass/volume) 20 mg/dL 7-18 Serum or plasma creatinine measurement (mass/volume) 0.86 mg/dL 0.60-1.30 Serum or plasma urea nitrogen/creatinine mass ratio 23 NRG Serum or plasma creatinine measurement with calculation of estimated glomerular filtration rate > NRG Serum or plasma glucose measurement (mass/volume) 177 mg/dL 70-105 Serum or plasma calcium measurement (mass/volume) 9.1 mg/dL 8.5-10.1 Serum or plasma phosphate measurement (mass/volume) - 08/09/17 03:25 Serum or plasma phosphate measurement (mass/volume) 2.9 mg/dL 2.3-4.7 Magnesium - 08/09/17 03:25 Magnesium 2.1 mg/dL 1.8-2.4 Complete blood count (CBC) with automated white blood cell (WBC) differential - 08/10/17 05:37 Blood leukocytes automated count (number/volume) 14.2 10*3/uL 4.3-11.0 Blood erythrocytes automated count (number/volume) 4.57 10*6/uL 4.35-5.85 Venous blood hemoglobin measurement (mass/volume) 14.3 g/dL 11.5-16.0 Blood hematocrit (volume fraction) 42 % 35-52 Automated erythrocyte mean corpuscular volume 91 [foz_us] 80-99 Automated erythrocyte mean corpuscular hemoglobin (mass per erythrocyte) 31 pg 25-34 Automated erythrocyte mean corpuscular hemoglobin concentration measurement ( mass/volume) 34 g/dL 32-36 Automated erythrocyte distribution width ratio 14.5 % 10.0-14.5 Automated blood platelet count (count/volume) 127 10*3/uL 130-400 Automated blood platelet mean volume measurement 12.1 [foz_us] 7.4-10.4 Automated blood neutrophils/100 leukocytes 73 % 42-75 Automated blood lymphocytes/100 leukocytes 20 % 12-44 Blood monocytes/100 leukocytes 6 % 0-12 Automated blood eosinophils/100 leukocytes 1 % 0-10 Automated blood basophils/100 leukocytes 0 % 0-10 Blood neutrophils automated count (number/volume) 10.4 10*3 1.8-7.8 Blood lymphocytes automated count (number/volume) 2.8 10*3 1.0-4.0 Blood monocytes automated count (number/volume) 0.8 10*3 0.0-1.0 Automated eosinophil count 0.2 10*3/uL 0.0-0.3 Automated blood basophil count (count/volume) 0.0 10*3/uL 0.0-0.1 Comprehensive metabolic panel - 08/10/17 05:37 Serum or plasma sodium measurement (moles/volume) 141 mmol/L 135-145 Serum or plasma potassium measurement (moles/volume) 3.5 mmol/L 3.6-5.0 Serum or plasma chloride measurement (moles/volume) 103 mmol/L 98-107 Carbon dioxide 25 mmol/L 21-32 Serum or plasma anion gap determination (moles/volume) 13 mmol/L 5-14 Serum or plasma urea nitrogen measurement (mass/volume) 24 mg/dL 7-18 Serum or plasma creatinine measurement (mass/volume) 0.95 mg/dL 0.60-1.30 Serum or plasma urea nitrogen/creatinine mass ratio 25 NRG Serum or plasma creatinine measurement with calculation of estimated glomerular filtration rate 57 NRG Serum or plasma glucose measurement (mass/volume) 114 mg/dL 70-105 Serum or plasma calcium measurement (mass/volume) 9.2 mg/dL 8.5-10.1 Serum or plasma total bilirubin measurement (mass/volume) 1.1 mg/dL 0.1-1.0 Serum or plasma alkaline phosphatase measurement (enzymatic activity/volume) 73 U/L 40-136 Serum or plasma aspartate aminotransferase measurement (enzymatic activity/ volume) 50 U/L 5-34 Serum or plasma alanine aminotransferase measurement (enzymatic activity/volume ) 48 U/L 0-55 Serum or plasma protein measurement (mass/volume) 6.4 g/dL 6.4-8.2 Serum or plasma albumin measurement (mass/volume) 3.7 g/dL 3.2-4.5 Serum or plasma troponin i.cardiac measurement (mass/volume) - 08/10/17 05:37 Serum or plasma troponin i.cardiac measurement (mass/volume) 13.84 ng/mL <0.30 Serum or plasma lithium measurement (moles/volume) - 08/10/17 05:37 BNP level 821.1 pg/mL <100.0 Serum or plasma C reactive protein measurement (mass/volume) - 08/10/17 05:37 Serum or plasma C reactive protein measurement (mass/volume) 1.73 mg /dL 0.00-0.50 Complete blood count (CBC) with automated white blood cell (WBC) differential - 08/11/17 03:37 Blood leukocytes automated count (number/volume) 9.0 10*3/uL 4.3-11.0 Blood erythrocytes automated count (number/volume) 4.96 10*6/uL 4.35-5.85 Venous blood hemoglobin measurement (mass/volume) 15.3 g/dL 11.5-16.0 Blood hematocrit (volume fraction) 45 % 35-52 Automated erythrocyte mean corpuscular volume 91 [foz_us] 80-99 Automated erythrocyte mean corpuscular hemoglobin (mass per erythrocyte) 31 pg 25-34 Automated erythrocyte mean corpuscular hemoglobin concentration measurement ( mass/volume) 34 g/dL 32-36 Automated erythrocyte distribution width ratio 14.5 % 10.0-14.5 Automated blood platelet count (count/volume) 139 10*3/uL 130-400 Automated blood platelet mean volume measurement 12.0 [foz_us] 7.4-10.4 Automated blood neutrophils/100 leukocytes 61 % 42-75 Automated blood lymphocytes/100 leukocytes 27 % 12-44 Blood monocytes/100 leukocytes 10 % 0-12 Automated blood eosinophils/100 leukocytes 2 % 0-10 Automated blood basophils/100 leukocytes 0 % 0-10 Blood neutrophils automated count (number/volume) 5.5 10*3 1.8-7.8 Blood lymphocytes automated count (number/volume) 2.4 10*3 1.0-4.0 Blood monocytes automated count (number/volume) 0.9 10*3 0.0-1.0 Automated eosinophil count 0.2 10*3/uL 0.0-0.3 Automated blood basophil count (count/volume) 0.0 10*3/uL 0.0-0.1 Whole blood basic metabolic panel - 08/11/17 03:37 Serum or plasma sodium measurement (moles/volume) 141 mmol/L 135-145 Serum or plasma potassium measurement (moles/volume) 3.9 mmol/L 3.6-5.0 Serum or plasma chloride measurement (moles/volume) 101 mmol/L 98-107 Carbon dioxide 27 mmol/L 21-32 Serum or plasma anion gap determination (moles/volume) 13 mmol/L 5-14 Serum or plasma urea nitrogen measurement (mass/volume) 21 mg/dL 7-18 Serum or plasma creatinine measurement (mass/volume) 0.86 mg/dL 0.60-1.30 Serum or plasma urea nitrogen/creatinine mass ratio 24 NRG Serum or plasma creatinine measurement with calculation of estimated glomerular filtration rate > NRG Serum or plasma glucose measurement (mass/volume) 99 mg/dL 70-105 Serum or plasma calcium measurement (mass/volume) 8.9 mg/dL 8.5-10.1 Magnesium - 08/11/17 03:37 Magnesium 1.9 mg/dL 1.8-2.4 Serum or plasma troponin i.cardiac measurement (mass/volume) - 08/11/17 06:25 Serum or plasma troponin i.cardiac measurement (mass/volume) 9.32 ng /mL <0.30 Encounters ACCT No. Visit Date/Time Discharge Status Pt. Type Provider Facility Loc./Unit Complaint [id number] 08/17/2017 10:14:00 08/17/2017 12:40:00 DIS Outpatient JUAN FRANCISCO BURLESON MD [facility] ENDO HEMATEMESIS [id number] 08/14/2017 11:32:00 08/14/2017 23:59:59 CLS Preadmit REBECCA CARRERO DO [facility] SLEEP COPD [id number] 08/14/2017 11:29:00 08/14/2017 23:59:59 CLS Preadmit REBECCA CARRERO DO [facility] RT COPD [id number] 08/10/2017 08:35:00 08/11/2017 08:59:00 DIS Inpatient FRANNY CARRILLO MD [facility] ICU ACUTE DECOMPENSATED HEART FAILURE [id number] 08/07/2017 02:37:00 08/09/2017 10:30:00 DIS Inpatient TOI MONTAÑO MD [facility] ICU ACUTE SD [id number] 09/13/2015 09:11:00 09/13/2015 23:59:59 CLS Outpatient THERESA ISRAEL DO [facility] RAD F/U LUNG INFLITRATE [id number] 04/13/2015 10:37:00 04/13/2015 23:59:59 CLS Preadmit THERESA ISRAEL DO [facility] REHAB [id number] 04/05/2015 18:45:00 04/06/2015 08:41:00 DIS Inpatient THERESA ISRAEL DO [facility] 4TH FEVER,HYPOTENSION,L ARM PAIN [id number] 02/20/2015 01:30:00 02/22/2015 14:30:00 DIS Inpatient JHONATAN THERESA [facility] SURGICAL LEFT BASILAR PNEUMONIA [id number] 11/08/2013 11:58:00 11/10/2013 12:05:00 DIS Inpatient MAXIMO CUNNINGHAM DOI [facility] 4TH PNEUMONIA [id number] 08/22/2017 10:00:00 PEN Preadmit SABRA REYES, TOI Almendarez [facility] CATH CAD,CHF [id number] 08/20/2017 11:51:00 ACT Outpatient BENJY REYES, JUAN FRANCISCO [place] [facility] RAD PERIPHERAL VASCULAR DISEASE [id number] 09/16/2015 07:48:00 Document Registration [id number] 12/17/2010 21:26:00 Document Registration [id number] 12/17/2010 00:15:00 Document Registration [id number] 10/14/2010 21:05:00 Document Registration
[2017-08-22] MEDS ORDERED: LIDOCAINE 1% INJ 50 ML (XYLOCAINE) VIAL ONE ×2 (08:41→10:43)
[2017-08-22] MEDS ORDERED: HEParin (CATH LAB) 2,000 ML IV ONE (08:41)
[2017-08-22] MEDS ORDERED: NS IV 1000 ML 1,000 ML ONE (08:41)
[2017-08-22] MEDS ORDERED: NS IV 1000 ML 1,000 ML IV SCH (08:49)
[2017-08-22 09:15] LABS: HEMOGLOBIN 15.3 G/DL (11.5-16.0); MEAN PLATELET VOLUME 11.5 FL (7.4-10.4); RED BLOOD COUNT 5.01 10^6/uL (4.35-5.85); RED CELL DISTRIBUTION WIDTH 13.8 % (10.0-14.5); WHITE BLOOD COUNT 9.4 10^3/uL (4.3-11.0)
[2017-08-22 09:25] LABS: PROTHROMBIN TIME PATIENT 12.8 SEC (12.2-14.7)
[2017-08-22 09:34] LABS: ALBUMIN 4.1 GM/DL (3.2-4.5); BILIRUBIN,TOTAL 1.1 MG/DL (0.1-1.0); CALCIUM 9.7 MG/DL (8.5-10.1); CREATININE SERUM 1.07 MG/DL (0.60-1.30); POTASSIUM 4.3 MMOL/L (3.6-5.0); TOTAL PROTEIN 7.9 GM/DL (6.4-8.2)
[2017-08-22 09:38] LABS: CLARITY,URINE CLEAR; COLOR,URINE YELLOW; PH,URINE 5 (5-9)
[2017-08-22 09:39] LABS: BACTERIA,URINE MODERATE /HPF; BILIRUBIN,URINE NEGATIVE (NEGATIVE); GLUCOSE, URINE (UA) NEGATIVE (NEGATIVE); KETONES,URINE NEGATIVE (NEGATIVE); LEUKOCYTE ESTERASE ,URINE 2+ (NEGATIVE); NITRITE,URINE NEGATIVE (NEGATIVE); PROTEIN,URINE 1+ (NEGATIVE); RBC,URINE RARE /HPF; SQUAMOUS EPITHELIAL CELL,UR 25-50 /HPF; UROBILINOGEN,URINE NORMAL (NORMAL)
[2017-08-22] MEDS ORDERED: MIDAZOLAM 5 MG/5 ML (VERSED) VIAL ONE (10:40)
[2017-08-22] MEDS ORDERED: fentaNYL INJECTION 100 MCG/2 ML AMP ONE (10:40)
[2017-08-22] MEDS ORDERED: TRAZ-28 PO (11:01)
[2017-08-22] MEDS ORDERED: SUCR1TAB36 PO (11:01)
[2017-08-22] MEDS ORDERED: ASPI-983 PO (11:01)
--- NOTE | 2017-08-22 11:02 | Cardiac Procedure Note-CS/ASA ---
Pre-Procedure Note Pre-Op Procedure Note H&P Reviewed The H&P was reviewed, patient examined and no changes noted. Date H&P Reviewed: Aug 22, 2017 Time H&P Reviewed: 11: Conscious Sedation Pre-Proced Time Reviewed: : ASA Class: 3 Airway Mallampati Classification: ([place] appropriate class) I. II. III, IV Lungs Heart ASA score ASA 1: a normal healthy patient ASA 2: a patient with a mild systemic disease (mid diabetes, controlled hypertension, obesity x ASA 3: a patient with a severe systemic disease that limits activity (angina , COPD, prior Myocardial infarction) ASA 4: a patient with an incapacitating disease that is a constant threat to life (CHF, renal failure) ASA 5: a moribund patient not expected to survive 24 hrs. (ruptured aneurysm) ASA 6: a declared brain patient whose organs are being harvested. For emergent operations, add the letter E after the classification Grade 3 Sedation Plan: Analgesia, Amnesia, Plan communicated to team members, Discussed options with patient/fam, Discussed risks with patient/fam Note The patient is an appropriate candidate to undergo the planned procedure, sedation, and anesthesia. The patient immediately re-assessed prior to indication. TOI MONTAÑO MD Aug 22, 2017 11:02
[2017-08-22] MEDS ORDERED: HEParin 1000 UNIT/ML (10ML VIAL) FOR BOLUS ONE (11:21)
[2017-08-22] MEDS ORDERED: NITRO DRIP 25000 MCG/D5W 250 ML IV ONE (11:27)
[2017-08-22] MEDS ORDERED: ASPIRIN 325 MG (5 GR) TABLET ONE (12:38)
[2017-08-22] MEDS ORDERED: CLOPIDOGREL 300 MG (PLAVIX) TABLET PO ONE ×2 (12:38→12:45)
[2017-08-22] MEDS ORDERED: PATIENT MAY USE OWN MEDS, ALL PO SCH (12:45)
[2017-08-22] MEDS ORDERED: ASPIRIN 325 MG (5 GR) TABLET PO ONE (12:45)
--- NOTE | 2017-08-22 12:55 | Cardiac Cath Report ---
Cardiac Cath Report Physician (s)/[facility] (s) Physician TOI MONTAÑO MD Pre-Procedure Diagnosis Pre-Procedure Diagnosis: Coronary artery disease Post-Procedure Note Procedure Start Date: Aug 22, 2017 Name of Procedure: Stent to the right coronary artery Abdominal aortogram Bilateral lower exudate. Runoff Findings/Procedure Note PROCEDURE NOTE: pPatient was scheduled for hypertensive intervention of the right coronary artery, she has been having claudication. DAVID was done which was abnormal on the left After explaining the procedure to the patient, all pros and cons were explained, all questions were answered. The patient signed the consent and then she was placed on the cardiac catheterization laboratory. The patient was placed on the cardiac catheterization laboratory. Groin was prepped SL fashion local anesthesia was used. Sheath placed in the right femoral artery. JR guide was used to access the right coronary system, patient was noted to have dampening of the pressure, it was exchanged into JR with sidehole. 5000 unit heparin were given BMW wire was used and cross the severe stenosis in the right coronary artery then primary stenting using 2.515 mm Alpine stent was used expanded to 2.65 with excellent results. Abdominal aortogram was done to evaluate the bifurcation. Rim catheter was used to cross then straight catheter was advanced to the left common iliac artery. Patient was noted to have total occlusion of the left SFA at its ostium, I exchanged the sheath into 7 German 45 sheath, try to cross the lesion with the command wire and many cross catheter without success, there was small perforation subsequently he stopped. Pressure gradient during pullback from the common femoral artery to the abdominal aorta was over 65 mmHg. Patient has ostial iliac stenosis. Sheath was exchanged into short 7 German sheath Closure device was used FINDINGS: Hemodynamics Abdominal aorta 127/40 mean of 68 Left common femoral artery 60/39 mean of 49 ANATOMY: Right coronary artery, severe stenosis proximally, successful angioplasty and stenting using Alpine 2.515 mm expanded to 2.6 mm with excellent results Abdominal aortogram showed atherosclerotic disease with small abdominal aorta, severe stenosis at the ostium of the left iliac artery Left lower extremity runoff showed total occlusion of the ostium of the left superficial femoral artery reconstructed at the midportion, moderate disease of the trifurcation, attempt to cross the total occlusion has failed with small perforation at the ostium. Procedure was aborted. Probably will try with popliteal access and retrograde access in the future Right lower extremity, moderate severe stenosis of the proximal portion, mild to moderate disease diffusely down to the trifurcation CONCLUSION: 1. Severe so that the proximal right coronary artery successful primary stenting using Alpine 2.5-50 mm expanded to 2.6 mm with excellent results 2. Total occlusion at the origin of the left SFA reconstructed at the midportion, attempt to intervention has failed with small perforation, patient would benefit from femoropopliteal bypass or popliteal axis with retrograde intervention 3. Severe ostial left common iliac artery stenosis with pressure gradient of 60 mmHg that need to be intervened on 4. Moderate severe stenosis at the proximal right SFA with [id number] disease distally 5. Atherosclerotic disease in the abdominal aorta at the bifurcation DISCUSSION AND RECOMMENDATION: Patient will be treated medically at this time, I am plannin for possible referral for evaluation for femoropopliteal bypass versus retrograde access of the popliteal artery Anesthesia Type: Conscious Sedation Estimated blood loss (mL): 25 ml Contrast Amount: 100 ml Total Radiation Dose: 222 mGy Post-Procedure Diagnosis Post-operative diagnosis: Coronary artery disease Peripheral arterial disease Hyperlipidemia GI bleed TOI MONTAÑO MD Aug 22, 2017 12:55
[2017-08-22] MEDS ORDERED: RT-ALBUTEROL/IPRATROPIUM 3 ML (DUONEB) VIAL IH PRN (13:00)
[2017-08-22] MEDS: SUCRALFATE 1 GM (CARAFATE) TAB PO SCH ×2 (13:30→20:58)
[2017-08-22] MEDS: NS IV 1000 ML 1,000 ML IV SCH ×2 (13:30→22:45)
[2017-08-22] MEDS ORDERED: OXYC-471 PO (14:22)
[2017-08-22] MEDS ORDERED: CATHETER FLUSH 10 ML SYR IV PRN (19:00)
[2017-08-22] MEDS: meTOprolol TARTRATE 50 MG (LOPRESSOR) TAB PO SCH (20:58)
[2017-08-22] MEDS ORDERED: ATORVASTATIN 80 MG (LIPITOR) TABLET PO SCH (21:00)
[2017-08-22] MEDS ORDERED: traZODone 50 MG (DESYREL) TAB PO SCH (21:00)
[2017-08-23] VITALS: BP 110/66
[2017-08-23 04:00] VITALS: BP 106/65
[2017-08-23 04:06] LABS: HEMOGLOBIN 13.2 G/DL (11.5-16.0); MEAN PLATELET VOLUME 11.9 FL (7.4-10.4); RED BLOOD COUNT 4.35 10^6/uL (4.35-5.85); RED CELL DISTRIBUTION WIDTH 13.6 % (10.0-14.5); WHITE BLOOD COUNT 9.1 10^3/uL (4.3-11.0)
[2017-08-23 04:29] LABS: BUN/CREATININE RATIO 19; CALCIUM 8.7 MG/DL (8.5-10.1); CARBON DIOXIDE 26 MMOL/L (21-32); CHLORIDE 105 MMOL/L (98-107); CREATININE SERUM 0.78 MG/DL (0.60-1.30); GFR ESTIMATED > 60; GLUCOSE 92 MG/DL (70-105); POTASSIUM 4.1 MMOL/L (3.6-5.0); SODIUM 139 MMOL/L (135-145)
[2017-08-23] MEDS ORDERED: PANTOPRAZOLE 40 MG (PROTONIX) TAB PO SCH (07:00)
[2017-08-23] MEDS ORDERED: OMEGA 3 (FISH OIL) 1000 MG CAP PO SCH (07:00)
--- NOTE | 2017-08-23 07:35 | Discharge Inst-Post CATH ---
Discharge Inst-CATH Post Cardiac Cath D/C Inst Follow Up/Plan Appointment with Dr. Carcamo's office in 2 weeks CARDIAC CATH DISCHARGE INSTRUCTIONS *Hold Metformin for 48 hours post heart cath. ACTIVITY * Go Home directly and rest. * Limit activity of the leg (or wrist if it was used) for 7 days including aerobics, swimming, jogging, bicycling, etc. * Restrict stair-climbing for 7 days if possible, if not, climb up with your non -cath leg, then bring together on the same step. * Avoid lifting, pushing, pulling or excessive movement of the affected extremity for 7 days. * Customary sexual activity may be resumed after 2 days-use caution not to use a position that strains or causes pain to the affected extremity. * No driving for 24 hours. * NO SMOKING. * Avoid straining for bowel movements for 7 days. * Gentle walking on level ground is allowed. * Returning to work will depend on the type of procedure and the results. Your doctor will discuss this with you. CALL YOUR DOCTOR FOR ANY OF THE FOLLOWING: *If bleeding from the puncture site occurs- Apply gentle pressure to site with clean cloth and call your doctor or EMS. * If a knot or lump forms under the skin, increases in size, or causes pain. * If bruising appears to be worsening or moving further down your leg instead of disappearing. * Temperature above 101 F. CARE OF YOUR GROIN INCISION; * Bruising or purple discoloration of the skin near the puncture site is common. * You may shower only, no bathtub bathing for 5 days. Be careful to avoid slipping as your leg may feel stiff. * If a closure device was used on your femoral artery, please see the attached guide regarding care of the device and your leg. * REMOVE the dressing from your groin the next day after your procedure in the shower. CARE OF YOUR WRIST INCISION; * Bruising or purple discoloration of the skin near the puncture site is common. * You may shower. * DO NOT submerge wrist. * Remove dressing in 24 hours. TOI CARCAMO MD Aug 23, 2017 07:35
--- NOTE | 2017-08-23 07:35 | Cardiology Progress Note ---
Subjective Date Seen by Provider: Aug 23, 2017 Time Seen by Provider: 07:33 Subjective/Events-last exam Patient is laying down in bed, groin is healing well, feeling well Review of Systems General: No Chills, No Night Sweats, No Fatigue, No Malaise, No Appetite, No Other HEENT: No Head Aches, No Visual Changes, No Eye Pain, No Ear Pain, No Dysphasia , No Sinus Congestion, No Post Nasal Drip, No Sore Throat, No Other Pulmonary: No Dyspnea, No Cough, No Pleuritic Chest Pain, No Other Cardiovascular: No: Chest Pain, Palpitations, Orthopnea, Paroxysmal Noc. Dyspnea, Edema, Lt Headedness, Other Objective-Cardiology Exam Last Set of Vital Signs Vital Signs 08/23/17 04:00 Temp 96.6 Pulse 79 Resp 16 B/P (MAP) 106/65 (79) Pulse Ox 93 O2 Delivery Room Air Capillary Refill : Less Than 3 Seconds I&O Intake and Output 08/23/17 00:00 Intake Total 1540 ml Balance 1540 ml Intake Oral 540 ml IV Total 1000 ml # Voids 3 General: Alert, Oriented X3, Cooperative HEENT: Atraumatic, PERRLA Neck: Supple, No JVD, No Thyromegaly Lungs: Clear to Auscultation, Normal Air Movement Heart: Regular Rate, Normal S1, Normal S2, No Murmurs Abdomen: Normal Bowel Sounds, Soft, No Tenderness, No Hepatosplenomegaly, No Masses Extremities: No Clubbing, No Cyanosis, No Edema, Normal Pulses, No Tenderness/ Swelling Skin: No Rashes, No Breakdown, No Significant Lesion Neuro: Normal Gait, Normal Speech, Strength at 5/5 X4 Ext, Normal Tone, Sensation Intact Psych/Mental Status: Mental Status NL, Mood NL Results Lab Laboratory Tests 08/22/17 08:45 08/23/17 03:05 A/P-Cardiology Admission Diagnosis Coronary artery disease Peripheral arterial disease Hypertension Hyperlipidemia Assessment/Plan Coronary artery disease, history of myocardial infarction, status post stent to the right coronary artery Peripheral arterial disease, total occlusion of the left SFA, severe disease at the ostial left iliac, need popliteal axis and retrograde intervention, moderate disease in the right SFA which will be monitored closely Hypertension, continue current medication monitor Hyperlipidemia, continue Lipitor GI bleed, peptic ulcer disease. Continue Carafate for now TOI MONTAÑO MD Aug 23, 2017 07:35
[2017-08-23] MEDS: meTOprolol TARTRATE 50 MG (LOPRESSOR) TAB PO SCH (08:07)
[2017-08-23] MEDS: SUCRALFATE 1 GM (CARAFATE) TAB PO SCH (08:07)
[2017-08-23 08:30] VITALS: BP 130/66
[2017-08-23] MEDS ORDERED: ASPIRIN E.C. 81 MG (ECOTRIN) TAB PO SCH ×2 (09:00)
[2017-08-23] MEDS ORDERED: CLOPIDOGREL 75 MG (PLAVIX) TABLET PO SCH ×2 (09:00)
[2017-08-23] MEDS ORDERED: FUROSEMIDE 20 MG (LASIX) TAB PO SCH (09:00)
== END 2017-08-23 08:35 | disposition home or self-care (01) ==
LOC: CATH 07:45 → ICU 16:20 → CATH 08-23 08:35
PROVIDERS: ATTEND Internal Medicine Cardiovascular Disease
DX: I25.10 Atherosclerotic heart disease of native coronary artery without angina pectoris (principal); I73.9 Peripheral vascular disease, unspecified; E78.2 Mixed hyperlipidemia; K92.2 Gastrointestinal hemorrhage, unspecified; I10 Essential (primary) hypertension; R07.9 Chest pain, unspecified; R06.02 Shortness of breath; I34.0 Nonrheumatic mitral (valve) insufficiency; Z95.5 Presence of coronary angioplasty implant and graft; K27.9 Peptic ulcer, site unspecified, unspecified as acute or chronic, without hemorrhage or perforation; Z79.899 Other long term (current) drug therapy; Z79.82 Long term (current) use of aspirin; R82.99 Other abnormal findings in urine
CPT/HCPCS: 36415; 80048; 80053; 81000; 85027; 85610; 85730; 87081; 87088; 93005

== ENCOUNTER → 2017-08-27 | Outpatient (CLI) | payer MEDICARE, OTHER ==
[~2017-08-27] MED LIST changes: +OXYC-471 PO; +SUCR1TAB36 PO
== END ==
LOC: RT 09:31
PROVIDERS: ATTEND Internal Medicine Critical Care Medicine
DX: J44.9 Chronic obstructive pulmonary disease, unspecified (principal); R06.02 Shortness of breath; I25.10 Atherosclerotic heart disease of native coronary artery without angina pectoris; I48.91 Unspecified atrial fibrillation

== ENCOUNTER → 2017-09-03 | Outpatient (CLI) | payer MEDICARE, OTHER ==
[~2017-09-03] MED LIST changes: +RT-ALBUTEROL SULF 2.5 MG/3 ML PRE-MIX VIAL INH ONE
== END ==
LOC: RT 08:19
PROVIDERS: ATTEND Internal Medicine Critical Care Medicine
DX: J44.9 Chronic obstructive pulmonary disease, unspecified (principal); R06.02 Shortness of breath; I25.10 Atherosclerotic heart disease of native coronary artery without angina pectoris; I48.91 Unspecified atrial fibrillation
CPT/HCPCS: 94060; 94726; 94729

== ENCOUNTER 2017-09-26 06:32 | Day surgery (SDC) | payer MEDICARE, OTHER ==
[~2017-09-26] VITALS: Ht 160 cm; Wt 59.9 kg
[2017-09-26] VITALS (13 sets, daily range): BP systolic 93–179; BP diastolic 40–85
[~2017-09-26 06:32] MED LIST changes: -RT-ALBUTEROL SULF 2.5 MG/3 ML PRE-MIX VIAL INH ONE
[2017-09-26] MEDS ORDERED: HEParin (CATH LAB) 2,000 ML IV ONE (06:54)
[2017-09-26] MEDS ORDERED: NS IV 1000 ML 1,000 ML ONE (06:54)
[2017-09-26] MEDS ORDERED: NS IV 1000 ML 1,000 ML IV SCH (06:57)
[2017-09-26] MEDS ORDERED: LIDOCAINE 1% INJ 50 ML (XYLOCAINE) VIAL ONE (06:58)
--- NOTE | 2017-09-26 07:36 | Diagnostic Imaging Report ---
INDICATION: Preoperative evaluation of cardiac and pulmonary structures prior to administration of anesthesia.. TECHNIQUE: Single frontal view of the chest. COMPARISON: 08/10/2017 FINDINGS: Lung volumes are large. No focal consolidation is seen. There is no pleural effusion or pneumothorax. The cardiac silhouette is mildly large. There is mild central vascular congestion. Sternotomy wires are noted. There is aortic atherosclerosis. IMPRESSION: 1. Large lung volumes with no focal consolidation seen. 2. Mild cardiomegaly with central vascular congestion. Dictated by: Dictated on workstation # [id number]
[2017-09-26 07:37] LABS: MEAN PLATELET VOLUME 11.6 FL (7.4-10.4); RED BLOOD COUNT 4.31 10^6/uL (4.35-5.85); RED CELL DISTRIBUTION WIDTH 13.9 % (10.0-14.5); WHITE BLOOD COUNT 7.9 10^3/uL (4.3-11.0)
[2017-09-26 07:46] LABS: INR 0.9 (0.8-1.4); PROTHROMBIN TIME PATIENT 12.6 SEC (12.2-14.7)
[2017-09-26] MEDS ORDERED: METO50TA15 PO (07:54)
[2017-09-26 07:55] LABS: ALANINE AMINOTRANSFERASE 22 U/L (0-55); ALKALINE PHOSPHATASE 111 U/L (40-136); BILIRUBIN,TOTAL 0.8 MG/DL (0.1-1.0); BUN/CREATININE RATIO 19; CALCIUM 9.3 MG/DL (8.5-10.1); CARBON DIOXIDE 26 MMOL/L (21-32); CHLORIDE 106 MMOL/L (98-107); CHOLESTEROL 130 MG/DL (< 200); GFR ESTIMATED > 60; GLUCOSE 122 MG/DL (70-105); HDL CHOLESTEROL 45 MG/DL (40-60); POTASSIUM 3.9 MMOL/L (3.6-5.0); SODIUM 143 MMOL/L (135-145); TOTAL PROTEIN 7.3 GM/DL (6.4-8.2); TRIGLYCERIDES 110 MG/DL (<150); VLDL CHOLESTEROL 22 MG/DL (5-40)
--- NOTE | 2017-09-26 08:58 | Cardiac Procedure Note-CS/ASA ---
Pre-Procedure Note Pre-Op Procedure Note H&P Reviewed The H&P was reviewed, patient examined and no changes noted. Date H&P Reviewed: Sep 26, 2017 Time H&P Reviewed: 08:57 Conscious Sedation Pre-Proced Time Reviewed: 08:57 ASA Class: 3 Airway Mallampati Classification: ([place] appropriate class) I. II. III, IV Lungs Heart ASA score ASA 1: a normal healthy patient ASA 2: a patient with a mild systemic disease (mid diabetes, controlled hypertension, obesity x ASA 3: a patient with a severe systemic disease that limits activity (angina , COPD, prior Myocardial infarction) ASA 4: a patient with an incapacitating disease that is a constant threat to life (CHF, renal failure) ASA 5: a moribund patient not expected to survive 24 hrs. (ruptured aneurysm) ASA 6: a declared brain patient whose organs are being harvested. For emergent operations, add the letter E after the classification Grade 3 Sedation Plan: Analgesia, Amnesia, Plan communicated to team members, Discussed options with patient/fam, Discussed risks with patient/fam Note The patient is an appropriate candidate to undergo the planned procedure, sedation, and anesthesia. The patient immediately re-assessed prior to indication. TOI MONTAÑO MD Sep 26, 2017 08:58
[2017-09-26] MEDS ORDERED: MIDAZOLAM 5 MG/5 ML (VERSED) VIAL ONE ×2 (09:01→10:12)
[2017-09-26] MEDS ORDERED: fentaNYL INJECTION 100 MCG/2 ML AMP ONE ×3 (09:01→13:09)
[2017-09-26] MEDS ORDERED: HEParin 1000 UNIT/ML (10ML VIAL) FOR BOLUS ONE (09:01)
[2017-09-26] MEDS ORDERED: CLOPIDOGREL 300 MG (PLAVIX) TABLET PO ONE (11:42)
[2017-09-26] MEDS ORDERED: ASPIRIN 325 MG (5 GR) TABLET ONE (11:42)
[2017-09-26] MEDS ORDERED: PATIENT MAY USE OWN MEDS, ALL PO SCH (12:00)
[2017-09-26] MEDS ORDERED: RT-ALBUTEROL/IPRATROPIUM 3 ML (DUONEB) VIAL IH PRN (12:00)
[2017-09-26] MEDS: NS IV 1000 ML 1,000 ML IV SCH ×2 (12:35→23:01)
[2017-09-26] MEDS ORDERED: oxyCODONE/APAP 5/325MG (PERCOCET 5) TABLET ONE (12:56)
[2017-09-26] MEDS ORDERED: oxyCODONE/APAP 5/325MG (PERCOCET 5) TABLET PO ONE (13:00)
[2017-09-26] MEDS ORDERED: fentaNYL INJECTION 100 MCG/2 ML AMP IVP PRN (13:10)
--- NOTE | 2017-09-26 15:10 | Peripheral Report ---
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 The patient signed the consent and then she was placed on the cardiac catheterization laboratory in the prone position The patient was placed on the cardiac catheterization laboratory. we prepped the popliteal area, with assistive ultrasound, local anesthesia applied and I was able to access the left popliteal artery, 6 Scottish sheath was placed. I had difficulties advancing Command. wire, patient was given heparin. I used a mini catheter for support and was able to advance the wire up to the common iliac artery, I advanced a mini catheter and remove the wire and angiogram showed good positioning within the lumen. Then I placed the wire again and attempted to advance a balloon without success, multiple attempts has failed. I exchange the wire over a mini catheter again to command 14, also was unable to advance the balloon then I advanced a small balloon to the common femoral artery and start multiple inflations then exchanged the wire into V 18 and I advanced 5.5 x 150 balloon, then a straight catheter was advanced and angiogram showed severe multiple segment with long stenosis from the ostium of the left SFA to the midportion, proceeded with Supera stent 5.5 time 150 postdilatation showed excellent result below the stent there was still some stenosis and small dissection, I deployed a second stent 5.5120 over with the old one. Postdilated again, excellent results. At the end of the procedure the sheath was removed me device deployed hemostasis achieved FINDINGS: 1. Total occlusion of the left SFA that has failed attempt for intervention through retrograde access in the past week, successful popliteal axis with complex intervention with multiple balloon angioplasty then deployment of 2 Supera stent overlapping 5.5x150 and 5.5120 with excellent results. No residual stenosis CONCLUSIONS: continue to maximize medical therapy and monitor, patient had stenosis at the right SFA that require intervention at a later point DISCUSSION AND RECOMMENDATIONS: Anesthesia Type: Conscious Sedation Estimated blood loss (mL): 10 ml Contrast Amount: 55 ml Total Radiation Dose: 140 mGy Post-Procedure Diagnosis Post-operative diagnosis: Peripheral arterial disease Coronary artery disease Hypertension Hyperlipidemia TOI MONTAÑO MD Sep 26, 2017 15:10
[2017-09-26] MEDS: meTOprolol TARTRATE 50 MG (LOPRESSOR) TAB PO SCH (20:32)
[2017-09-26] MEDS ORDERED: ATORVASTATIN 80 MG (LIPITOR) TABLET PO SCH (21:00)
[2017-09-26] MEDS ORDERED: NON-FORMULARY MEDICATION 1 EA EA (Metoprolol Tartrate 50 MG) PO SCH (21:00)
[2017-09-27] VITALS: BP 117/72
[2017-09-27 04:00] VITALS: BP 129/71
[2017-09-27 04:39] LABS: MEAN PLATELET VOLUME 12.3 FL (7.4-10.4); RED BLOOD COUNT 3.28 10^6/uL (4.35-5.85); WHITE BLOOD COUNT 7.8 10^3/uL (4.3-11.0)
[2017-09-27 05:03] LABS: BUN/CREATININE RATIO 18; CALCIUM 8.5 MG/DL (8.5-10.1); CARBON DIOXIDE 24 MMOL/L (21-32); CHLORIDE 109 MMOL/L (98-107); CREATININE SERUM 0.71 MG/DL (0.60-1.30); GFR ESTIMATED > 60; GLUCOSE 140 MG/DL (70-105); POTASSIUM 3.5 MMOL/L (3.6-5.0); SODIUM 141 MMOL/L (135-145)
[2017-09-27] MEDS ORDERED: OMEGA 3 (FISH OIL) 1000 MG CAP PO SCH (07:00)
[2017-09-27] MEDS ORDERED: PANTOPRAZOLE 40 MG (PROTONIX) TAB PO SCH (07:00)
--- NOTE | 2017-09-27 07:52 | Cardiology Progress Note ---
Subjective Date Seen by Provider: Sep 27, 2017 Time Seen by Provider: 07:50 Subjective/Events-last exam Patient is complaining of significant pain at her left calf. There is palpable pulse. Denied any chest pain. Review of Systems General: No Chills, No Night Sweats, No Fatigue, No Malaise, No Appetite, No Other HEENT: No Head Aches, No Visual Changes, No Eye Pain, No Ear Pain, No Dysphasia , No Sinus Congestion, No Post Nasal Drip, No Sore Throat, No Other Pulmonary: No Dyspnea, No Cough, No Pleuritic Chest Pain, No Other Cardiovascular: No: Chest Pain, Palpitations, Orthopnea, Paroxysmal Noc. Dyspnea, Edema, Lt Headedness, Other Gastrointestinal: No: Nausea, Vomiting, Abdominal Pain, Diarrhea, Constipation , Melena, Hematochezia, Other Objective-Cardiology Exam Last Set of Vital Signs Vital Signs 09/26/17 09/27/17 14:30 04:00 Temp 97.0 Pulse 83 Resp 18 B/P (MAP) 129/71 (90) Pulse Ox 97 O2 Delivery Room Air O2 Flow Rate 2.00 Capillary Refill : Less Than 3 Seconds I&O Intake and Output 09/27/17 00:00 Intake Total 480 ml Balance 480 ml Intake Oral 480 ml # Voids 2 General: Alert, Oriented X3, Cooperative HEENT: Atraumatic, PERRLA Neck: Supple, No JVD, No Thyromegaly Lungs: Clear to Auscultation, Normal Air Movement Heart: Regular Rate, Normal S1, Normal S2, No Murmurs Abdomen: Normal Bowel Sounds, Soft, No Tenderness, No Hepatosplenomegaly, No Masses Extremities: No Clubbing, No Cyanosis, No Edema, Normal Pulses, No Tenderness/ Swelling Skin: No Rashes, No Breakdown, No Significant Lesion Neuro: Normal Gait, Normal Speech, Strength at 5/5 X4 Ext, Normal Tone, Sensation Intact Psych/Mental Status: Mental Status NL, Mood NL Results Lab Laboratory Tests 09/27/17 03:25 A/P-Cardiology Admission Diagnosis Coronary artery disease Peripheral arterial disease Hypertension Hyperlipidemia Assessment/Plan Coronary artery disease, history of myocardial infarction, status post stent to the right coronary artery, recovered well Peripheral arterial disease, total occlusion of the left SFA, severe disease at the ostial left iliac, status post complex intervention using left popliteal access, excellent results, still having significant pain in her left calf. Questionable small hematoma. I will evaluate ultrasound Hypertension, continue current medication monitor Hyperlipidemia, continue Lipitor GI bleed, peptic ulcer disease, more stable, continue to monitor H&H TOI MONTAÑO MD Sep 27, 2017 07:52
[2017-09-27] MEDS: NS IV 1000 ML 1,000 ML IV SCH (08:00)
[2017-09-27 08:56] VITALS: BP 104/64
[2017-09-27] MEDS ORDERED: ASPIRIN E.C. 81 MG (ECOTRIN) TAB PO SCH (09:00)
[2017-09-27] MEDS ORDERED: VIT D3 PO SCH (09:00)
[2017-09-27] MEDS ORDERED: FUROSEMIDE 20 MG (LASIX) TAB PO SCH (09:00)
[2017-09-27] MEDS ORDERED: CYANOCOBALAMIN 500 MCG TAB (VITAMIN B-12) PO SCH (09:00)
[2017-09-27] MEDS ORDERED: CLOPIDOGREL 75 MG (PLAVIX) TABLET PO SCH (09:00)
[2017-09-27] MEDS: meTOprolol TARTRATE 50 MG (LOPRESSOR) TAB PO SCH (09:03)
--- NOTE | 2017-09-27 09:17 | Diagnostic Imaging Report ---
INDICATION: Left lower extremity arterial intervention yesterday with left SFA stent placed. Patient complains of left calf pain. TECHNIQUE: Edward-scale, color-flow and duplex Doppler evaluation of left lower extremity arterial system was performed. FINDINGS: Predominantly monophasic waveforms are identified throughout the entire left lower extremity arterial system. There is a stent noted throughout the left superficial femoral artery proximal, mid and distal aspect. There is flow present. No elevated velocity or occlusion is seen. The left common femoral artery is patent. There is flow at the ankle via the posterior tibial and dorsalis pedis. IMPRESSION: Patent left lower extremity arterial system. Waveforms are monophasic. No high-grade stenosis or occlusion is seen. Dictated by: Dictated on workstation # [id number]
--- NOTE | 2017-09-27 10:08 | Discharge Inst-Post CATH ---
Discharge Inst-CATH Post Cardiac Cath D/C Inst Follow Up/Plan Appointment with Dr. Carcamo's office next week CARDIAC CATH DISCHARGE INSTRUCTIONS *Hold Metformin for 48 hours post heart cath. ACTIVITY * Go Home directly and rest. * Limit activity of the leg (or wrist if it was used) for 7 days including aerobics, swimming, jogging, bicycling, etc. * Restrict stair-climbing for 7 days if possible, if not, climb up with your non -cath leg, then bring together on the same step. * Avoid lifting, pushing, pulling or excessive movement of the affected extremity for 7 days. * Customary sexual activity may be resumed after 2 days-use caution not to use a position that strains or causes pain to the affected extremity. * No driving for 24 hours. * NO SMOKING. * Avoid straining for bowel movements for 7 days. * Gentle walking on level ground is allowed. * Returning to work will depend on the type of procedure and the results. Your doctor will discuss this with you. CALL YOUR DOCTOR FOR ANY OF THE FOLLOWING: *If bleeding from the puncture site occurs- Apply gentle pressure to site with clean cloth and call your doctor or EMS. * If a knot or lump forms under the skin, increases in size, or causes pain. * If bruising appears to be worsening or moving further down your leg instead of disappearing. * Temperature above 101 F. CARE OF YOUR GROIN INCISION; * Bruising or purple discoloration of the skin near the puncture site is common. * You may shower only, no bathtub bathing for 5 days. Be careful to avoid slipping as your leg may feel stiff. * If a closure device was used on your femoral artery, please see the attached guide regarding care of the device and your leg. * REMOVE the dressing from your groin the next day after your procedure in the shower. CARE OF YOUR WRIST INCISION; * Bruising or purple discoloration of the skin near the puncture site is common. * You may shower. * DO NOT submerge wrist. * Remove dressing in 24 hours. TOI CARCAMO MD Sep 27, 2017 10:07 am
[2017-09-27 12:15] VITALS: BP 104/64
== END 2017-09-27 12:15 | disposition home or self-care (01) ==
LOC: CATH 06:32 → SURG 12:11 → ICU 15:00 → CATH 09-27 12:15
PROVIDERS: ATTEND Internal Medicine Cardiovascular Disease
DX: I25.10 Atherosclerotic heart disease of native coronary artery without angina pectoris (principal); I73.9 Peripheral vascular disease, unspecified; I10 Essential (primary) hypertension; J43.9 Emphysema, unspecified; E78.2 Mixed hyperlipidemia; Z79.899 Other long term (current) drug therapy; Z87.891 Personal history of nicotine dependence; I49.3 Ventricular premature depolarization
CPT/HCPCS: 36415; 37226; 71045; 80048; 80053; 80061; 85027; 85610; 85730; 87081; 93926

== ENCOUNTER 2017-11-14 08:24 | Day surgery (SDC) | payer MEDICARE, OTHER ==
[~2017-11-14] VITALS: Ht 160 cm; Wt 60.8 kg
[2017-11-14] VITALS (14 sets, daily range): BP systolic 90–152; BP diastolic 56–89
[~2017-11-14 08:24] MED LIST changes: +METO50TA15 PO
[2017-11-14] MEDS ORDERED: NS IV 1000 ML 1,000 ML ONE (08:26)
[2017-11-14] MEDS ORDERED: LIDOCAINE 1% INJ 20 ML 20 ML VIAL ONE (08:26)
[2017-11-14] MEDS ORDERED: HEParin (CATH LAB) 2,000 ML IV ONE (08:26)
--- OUTSIDE RECORDS SUMMARY | 2017-11-14 08:29 | XMS REPORT | Continuity of Care Document ---
Author Author [facility] Organization [facility] Address Unknown Phone Unavailable Allergies Active Description Code Type Severity Reaction Onset Reported/Identified Relationship to Patient Clinical Status Yes No Known Drug Allergies [id number] Drug Allergy Unknown N/A 11/02/2009 Medications There [...] DO Ot 401.9 HYPERTENSION NOS 11/10/2013 OCTAVIO CUNNINHGAM DO Ot 424.0 MITRAL VALVE DISORDER 11/10/2013 [...] MD Ot I25.10 ATHSCL HEART DISEASE [place] CORONARY 08/07/2017 TOI MONTAÑO MD Ot I27.20 [...] MD Ot I25.10 ATHSCL HEART DISEASE [place] CORONARY 08/08/2017 TOI MONTAÑO MD Ot I27.20 [...] MD Ot I25.10 ATHSCL HEART DISEASE [place] CORONARY 08/09/2017 TOI MONTAÑO MD Ot I27.20 [...] SHOCK 08/09/2017 TOI MONTAÑO MD Ot Z79.01 PAPER TWISTER TENDER (CURRENT) USE OF 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 08/09/2017 TOI MONTAÑO MD Ot Z79.02 PAPER TWISTER TENDER (CURRENT) USE OF ANTITHROMBOTI 08/09/2017 TOI MONTAÑO [...] TOI MONTAÑO MD Ot I21.29 STEMI INVOLVING [facility] SITES 08/09/2017 TOI MONTAÑO MD Ot I25.10 ATHSCL HEART DISEASE [place] CORONARY 08/09/2017 TOI MONTAÑO MD Ot I27.20 [...] SHOCK 08/09/2017 TOI MONTAÑO MD Ot Z79.01 PAPER TWISTER TENDER (CURRENT) USE OF 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 08/09/2017 TOI MONTAÑO MD Ot Z79.02 SENIOR CARE (CURRENT) USE OF ANTITHROMBOTI 08/09/2017 TOI MONTAÑO MD Ot Z87.01 PERSONAL HISTORY OF PNEUMONIA (RECURRENT 08/09/2017 SABRA REYES, TOI Almendarez Ot Z87.891 PERSONAL HISTORY OF NICOTINE DEPENDENCE 08/10/2017 THERESA ISRAEL DO Ot R91.8 OTHER NONSPECIFIC ABNORMAL FINDING OF MARYLOU 08/10/2017 Ot R91.8 OTHER NONSPECIFIC ABNORMAL FINDING OF MARYLOU 08/11/2017 FRANNY CARRILLO MD Ot E78.00 PURE HYPERCHOLESTEROLEMIA, UNSPECIFIED 08/11/2017 FRANNY CARRILLO MD Ot E78.2 MIXED HYPERLIPIDEMIA 08/11/2017 FRANNY CARRILLO MD Ot E87.8 [facility] DISORDERS OF ELECTROLYTE AND FLUID B 08/11/2017 FRANNY CARRILLO MD Ot F41.9 ANXIETY DISORDER, UNSPECIFIED 08/11/2017 FRANNY CARRILLO MD, Ot I10 ESSENTIAL (PRIMARY) HYPERTENSION 08/11/2017 FRANNY CARRILLO MD, Ot I25.10 ATHSCL HEART DISEASE [place] CORONARY 08/11/2017 RFANNY CARRILLO MD, Ot I25.2 OLD MYOCARDIAL INFARCTION [...] 08/11/2017 FRANNY CARRILLO MD, Ot Z79.82 SENIOR CARE (CURRENT) USE OF ASPIRIN 08/11/2017 FRANNY CARRILLO MD, Ot Z79.899 OTHER PAPER TWISTER TENDER (CURRENT) DRUG THERAPY 08/11/2017 FRANNY CARRILLO MD, Ot Z87.891 PERSONAL HISTORY OF NICOTINE DEPENDENCE 08/11/2017 FRANNY CARRILLO MD Ot Z95.5 PRESENCE OF CORONARY ANGIOPLASTY IMPLANT 08/11/2017 FRANNY CARRILLO MD Ot E78.00 PURE HYPERCHOLESTEROLEMIA, UNSPECIFIED 08/11/2017 GERARDO MD, FRANNY M Ot E78.2 MIXED HYPERLIPIDEMIA 08/11/2017 FRANNY CARRILOL MD Ot E87.8 OTH DISORDERS OF ELECTROLYTE AND FLUID B 08/11/2017 FRANNY CARRILLO MD Ot F41.9 ANXIETY DISORDER, UNSPECIFIED 08/11/2017 FRANNY CARRILLO MD Ot I10 ESSENTIAL (PRIMARY) HYPERTENSION 08/11/2017 FRANNY CARRILLO MD Ot I25.10 ATHSCL HEART DISEASE [place] CORONARY 08/11/2017 FRANNY CARRILLO MD, Ot I25.2 [...] HYPOXEMIA 08/11/2017 FRANNY CARRILLO MD Ot Z79.82 SENIOR CARE (CURRENT) USE OF ASPIRIN 08/11/2017 FRANNY CARRILLO MD Ot Z79.899 OTHER PAPER TWISTER TENDER (CURRENT) DRUG THERAPY 08/11/2017 FRANNY CARRILLO MD [...] MD Ot I25.10 ATHSCL HEART DISEASE [place] CORONARY 08/14/2017 FRANNY CARRILLO MD, Ot I25.2 [...] HYPOXEMIA 08/14/2017 FRANNY CARRILLO MD, Ot Z79.82 PAPER TWISTER TENDER (CURRENT) USE OF ASPIRIN 08/14/2017 FRANNY CARRILLO MD, Ot Z79.899 OTHER PAPER TWISTER TENDER (CURRENT) DRUG THERAPY 08/14/2017 FRANNY CARRILLO MD, Ot Z87.891 PERSONAL HISTORY OF NICOTINE DEPENDENCE 08/14/2017 FRANNY CARRILLO MD Ot Z95.5 PRESENCE OF CORONARY ANGIOPLASTY IMPLANT 08/17/2017 JUAN FRANCISCO BURLESON MD Ot I08.1 RHEUMATIC DISORDERS OF BOTH MITRAL AND T 08/17/2017 JUAN FRANCISCO BURLESON MD Ot I10 ESSENTIAL (PRIMARY) HYPERTENSION 08/17/2017 JUAN FRANCISCO BURLESON MD Ot I25.10 ATHSCL HEART DISEASE OF [place] CORONARY 08/17/2017 JUAN FRANCISCO BURLESON MD Ot [...] DISORDERS OF BOTH MITRAL AND T 08/20/2017 BENJY REYES, JUAN FRANCISCO [place] Ot I10 ESSENTIAL (PRIMARY) HYPERTENSION 08/20/2017 JUAN FRANCISCO BURLESON MD Ot I25.10 ATHSCL HEART DISEASE OF [place] CORONARY 08/20/2017 JUAN FRANCISCO BURLESON MD Ot I25.2 OLD MYOCARDIAL INFARCTION 08/20/2017 JUAN [...] OF NICOTINE DEPENDENCE 08/20/2017 JUAN FRANCISCO BURLESON MD Ot Z95.5 PRESENCE OF CORONARY ANGIOPLASTY IMPLANT 08/21/2017 THERESA ISRAEL DO Ot R91.8 OTHER NONSPECIFIC ABNORMAL FINDING OF M[place] 08/21/2017 Ot R91.8 OTHER NONSPECIFIC ABNORMAL FINDING OF [place] 08/21/2017 REBECCA CARRERO DO Ot J44.9 CHRONIC OBSTRUCTIVE PULMONARY DISEASE, U 08/21/2017 JUAN FRANCISCO BURLESON MD Ot I73.9 PERIPHERAL VASCULAR DISEASE, UNSPECIFIED 08/23/2017 TOI MONTAÑO MD Ot E78.2 MIXED HYPERLIPIDEMIA 08/23/2017 TOI MONTAÑO MD Ot I10 ESSENTIAL (PRIMARY) HYPERTENSION 08/23/2017 TOI MONTAÑO MD Ot I25.10 ATHSCL HEART DISEASE [place] CORONARY 08/23/2017 TOI MONTAÑO MD Ot I34.0 NONRHEUMATIC MITRAL (VALVE) INSUFFICIENC 08/23/2017 TOI MONTAÑO MD Ot I73.9 PERIPHERAL VASCULAR DISEASE, UNSPECIFIED 08/23/2017 TOI MONTAÑO MD Ot K27.9 PEPTIC ULC, SITE UNSP, UNSP AC OR CHR 08/23/2017 TOI MONTAÑO MD Ot K92.2 GASTROINTESTINAL HEMORRHAGE, UNSPECIFIED 08/23/2017 TOI MONTAÑO MD Ot R06.02 SHORTNESS OF BREATH 08/23/2017 TOI MONTAÑO MD Ot R07.9 CHEST PAIN, UNSPECIFIED 08/23/2017 TOI MONTAÑO MD Ot R82.99 OTHER ABNORMAL FINDINGS IN URINE 08/23/2017 TOI MONTAÑO MD Ot Z79.82 SENIOR CARE (CURRENT) USE OF ASPIRIN 08/23/2017 TOI MONTAÑO MD Ot Z79.899 OTHER PAPER TWISTER TENDER (CURRENT) DRUG THERAPY 08/23/2017 TOI MONTAÑO MD Ot Z95.5 PRESENCE OF CORONARY ANGIOPLASTY IMPLANT 08/23/2017 REBECCA CARRERO DO Ot J44.9 CHRONIC OBSTRUCTIVE PULMONARY DISEASE, U 08/23/2017 TOI MONTAÑO MD Ot E78.2 MIXED HYPERLIPIDEMIA 08/23/2017 TOI MONTAÑO MD Ot I10 ESSENTIAL (PRIMARY) HYPERTENSION 08/23/2017 TOI MONTAÑO MD Ot I25.10 ATHSCL HEART DISEASE [place] CORONARY 08/23/2017 TOI MONTAÑO MD Ot I34.0 NONRHEUMATIC MITRAL (VALVE) INSUFFICIENC 08/23/2017 TOI MONTAÑO MD Ot I73.9 PERIPHERAL VASCULAR DISEASE, UNSPECIFIED 08/23/2017 TOI MONTAÑO MD Ot K27.9 PEPTIC ULC, SITE UNSP, UNSP AC OR CHR 08/23/2017 TOI MONTAÑO MD Ot K92.2 GASTROINTESTINAL HEMORRHAGE, UNSPECIFIED 08/23/2017 TOI MONTAÑO MD Ot R06.02 SHORTNESS OF BREATH 08/23/2017 TOI MONTAÑO MD Ot R07.9 CHEST PAIN, UNSPECIFIED 08/23/2017 TOI MONTAÑO MD Ot R82.99 OTHER ABNORMAL FINDINGS IN URINE 08/23/2017 TOI MONTAÑO MD Ot Z79.82 PAPER TWISTER TENDER (CURRENT) USE OF ASPIRIN 08/23/2017 TOI MONTAÑO MD Ot Z79.899 OTHER SENIOR CARE (CURRENT) DRUG THERAPY 08/23/2017 TOI MONTAÑO MD Ot Z95.5 PRESENCE OF CORONARY ANGIOPLASTY IMPLANT 08/24/2017 THERESA ISRAEL DO Ot R91.8 OTHER NONSPECIFIC ABNORMAL FINDING OF M[place] 08/24/2017 Ot R91.8 OTHER NONSPECIFIC ABNORMAL FINDING OF [place] 08/24/2017 REBECCA CARRERO DO Ot J44.9 CHRONIC OBSTRUCTIVE PULMONARY DISEASE, U 08/24/2017 JUAN FRANCISCO BURLESON MD Ot I73.9 PERIPHERAL VASCULAR DISEASE, UNSPECIFIED 08/27/2017 REBECCA CARRERO DO, Ot J44.9 CHRONIC OBSTRUCTIVE PULMONARY DISEASE, U 08/28/2017 TOI MONTAÑO MD Ot E78.2 MIXED HYPERLIPIDEMIA 08/28/2017 TOI MONTAÑO MD Ot I10 ESSENTIAL (PRIMARY) HYPERTENSION 08/28/2017 TOI MONTAÑO MD Ot I25.10 ATHSCL HEART DISEASE [place] CORONARY 08/28/2017 TOI MONTAÑO MD Ot I34.0 NONRHEUMATIC MITRAL (VALVE) INSUFFICIENC 08/28/2017 TOI MONTAÑO MD Ot I73.9 PERIPHERAL VASCULAR DISEASE, UNSPECIFIED 08/28/2017 TOI MONTAÑO MD Ot K27.9 PEPTIC ULC, SITE UNSP, UNSP AC OR CHR 08/28/2017 TOI MONTAÑO MD Ot K92.2 GASTROINTESTINAL HEMORRHAGE, UNSPECIFIED 08/28/2017 TOI MONTAÑO MD Ot R06.02 SHORTNESS OF BREATH 08/28/2017 TOI MONTAÑO MD Ot R07.9 CHEST PAIN, UNSPECIFIED 08/28/2017 TOI MONTAÑO MD Ot R82.99 OTHER ABNORMAL FINDINGS IN URINE 08/28/2017 TOI MONTAÑO MD Ot Z79.82 PAPER TWISTER TENDER (CURRENT) USE OF ASPIRIN 08/28/2017 TOI MONTAÑO MD Ot Z79.899 OTHER SENIOR CARE (CURRENT) DRUG THERAPY 08/28/2017 TOI MONTAÑO MD Ot Z95.5 PRESENCE OF CORONARY ANGIOPLASTY IMPLANT 08/28/2017 REBECCA CARRERO DO Ot I25.10 ATHSCL HEART DISEASE [place] CORONARY 08/28/2017 REBECCA CARRERO DO Ot I48.91 UNSPECIFIED ATRIAL FIBRILLATION 08/28/2017 REBECCA CARRERO DO, Ot J44.9 CHRONIC OBSTRUCTIVE PULMONARY DISEASE, U 08/28/2017 REBECCA CARRERO DO Ot R06.02 SHORTNESS OF BREATH 09/12/2017 JUAN FRANCISCO BURLESON MD Ot I73.9 PERIPHERAL VASCULAR DISEASE, UNSPECIFIED 09/26/2017 THERESA ISRAEL DO Ot R91.8 OTHER NONSPECIFIC ABNORMAL FINDING OF M[place] 09/26/2017 Ot R91.8 OTHER NONSPECIFIC ABNORMAL FINDING OF M[place] 09/26/2017 REBECCA CARRERO DO Ot I25.10 ATHSCL HEART DISEASE OF [place] CORONARY 09/26/2017 MAGAN REBECCA M Ot I48.91 UNSPECIFIED ATRIAL FIBRILLATION 09/26/2017 MAGAN REBECCA Ot J44.9 CHRONIC OBSTRUCTIVE PULMONARY DISEASE, U 09/26/2017 MAGAN SHAHREBECCA M Ot R06.02 SHORTNESS OF BREATH 09/26/2017 BENJY REYES, JUAN FRANCISCO [place] Ot I73.9 PERIPHERAL VASCULAR DISEASE, UNSPECIFIED 09/26/2017 REBECCA CARRERO DO Ot I25.10 ATHSCL HEART DISEASE [place] CORONARY 09/26/2017 MAGANREBECCA PANDYA DO M Ot I48.91 UNSPECIFIED ATRIAL FIBRILLATION 09/26/2017 REBECCA CARRERO DO Ot J44.9 CHRONIC OBSTRUCTIVE PULMONARY DISEASE, U 09/26/2017 MAGAN SHAHREBECCA Ot R06.02 SHORTNESS OF BREATH 09/27/2017 TOI MONTAÑO MD Ot E78.2 MIXED HYPERLIPIDEMIA 09/27/2017 TOI MONTAÑO MD Ot I10 ESSENTIAL (PRIMARY) HYPERTENSION 09/27/2017 TOI MONTAÑO MD Ot I25.10 ATHSCL HEART DISEASE [place] CORONARY 09/27/2017 TOI MONTAÑO MD Ot I49.3 VENTRICULAR PREMATURE DEPOLARIZATION 09/27/2017 TOI MONTAÑO MD Ot I70.202 UNSP [place]SCL [place] [facility] 09/27/2017 TOI MONTAÑO MD Ot I73.9 PERIPHERAL VASCULAR DISEASE, UNSPECIFIED 09/27/2017 TOI MONTAÑO MD Ot J43.9 EMPHYSEMA, UNSPECIFIED 09/27/2017 TOI MONTAÑO MD Ot Z79.899 OTHER SENIOR CARE (CURRENT) DRUG THERAPY 09/27/2017 TOI MONTAÑO MD Ot Z87.891 PERSONAL HISTORY OF NICOTINE DEPENDENCE 09/27/2017 TOI MONTAÑO MD Ot E78.2 MIXED HYPERLIPIDEMIA 09/27/2017 TOI MONTAÑO MD Ot I10 ESSENTIAL (PRIMARY) HYPERTENSION 09/27/2017 TOI MONTAÑO MD Ot I25.10 ATHSCL HEART DISEASE [place] CORONARY 09/27/2017 TOI MONTAÑO MD Ot I49.3 VENTRICULAR PREMATURE DEPOLARIZATION 09/27/2017 TOI MONTAÑO MD Ot I73.9 PERIPHERAL VASCULAR DISEASE, UNSPECIFIED 09/27/2017 TOI MONTAÑO MD Ot J43.9 EMPHYSEMA, UNSPECIFIED 09/27/2017 TOI MONTAÑO MD Ot Z79.899 OTHER SENIOR CARE (CURRENT) DRUG THERAPY 09/27/2017 TOI MONTAÑO MD Ot Z87.891 PERSONAL HISTORY OF NICOTINE DEPENDENCE 10/02/2017 TOI MONTAÑO MD Ot E78.2 MIXED HYPERLIPIDEMIA 10/02/2017 TOI MONTAÑO MD Ot I10 ESSENTIAL (PRIMARY) HYPERTENSION 10/02/2017 TOI MONTAÑO MD Ot I25.10 ATHSCL HEART DISEASE [place] CORONARY 10/02/2017 TOI MONTAÑO MD Ot I49.3 VENTRICULAR PREMATURE DEPOLARIZATION 10/02/2017 TOI MONTAÑO MD Ot I73.9 PERIPHERAL VASCULAR DISEASE, UNSPECIFIED 10/02/2017 TOI MONTAÑO MD Ot J43.9 EMPHYSEMA, UNSPECIFIED 10/02/2017 TOI MONTAÑO MD Ot Z79.899 OTHER SENIOR CARE (CURRENT) DRUG THERAPY 10/02/2017 TOI MONTAÑO MD Ot Z87.891 PERSONAL HISTORY OF NICOTINE DEPENDENCE 10/02/2017 Ot 496 10/02/2017 Ot 515 10/02/2017 Ot V45.81 10/02/2017 BENJY REYES, JUAN FRANCISCO [place] Ot I73.9 PERIPHERAL VASCULAR DISEASE, UNSPECIFIED 10/02/2017 THERESA ISRAEL DO Ot R91.8 OTHER NONSPECIFIC ABNORMAL FINDING OF M[place] 10/02/2017 REBECCA CARRERO DO Ot I25.10 ATHSCL HEART DISEASE [place] CORONARY 10/02/2017 REBECCA CARRERO DO Ot I48.91 UNSPECIFIED ATRIAL FIBRILLATION 10/02/2017 REBECCA CARRERO DO Ot J44.9 CHRONIC OBSTRUCTIVE PULMONARY DISEASE, U 10/02/2017 REBECCA CARRERO DO Ot R06.02 SHORTNESS OF BREATH 10/02/2017 TOI MONTAÑO MD Ot E78.2 MIXED HYPERLIPIDEMIA 10/02/2017 TOI MONTAÑO MD Ot I10 ESSENTIAL (PRIMARY) HYPERTENSION 10/02/2017 TOI MONTAÑO MD Ot I25.10 ATHSCL HEART DISEASE [place] CORONARY 10/02/2017 TOI MONTAÑO MD Ot I49.3 VENTRICULAR PREMATURE DEPOLARIZATION 10/02/2017 TOI MONTAÑO MD Ot I70.202 UNSP A[place]SCL [place] [facility] 10/02/2017 TOI MONTAÑO MD Ot J43.9 EMPHYSEMA, UNSPECIFIED 10/02/2017 TOI MONTAÑO MD Ot Z79.899 OTHER PAPER TWISTER TENDER (CURRENT) DRUG THERAPY 10/02/2017 TOI MONTAÑO MD Ot Z87.891 PERSONAL HISTORY OF NICOTINE DEPENDENCE 10/05/2017 TOI MONTAÑO MD Ot E78.2 MIXED HYPERLIPIDEMIA 10/05/2017 TOI MONTAÑO MD Ot I10 ESSENTIAL (PRIMARY) HYPERTENSION 10/05/2017 TOI MONTAÑO MD Ot I25.10 ATHSCL HEART DISEASE OF [place] CORONARY 10/05/2017 TOI MONTAÑO MD Ot I49.3 VENTRICULAR PREMATURE DEPOLARIZATION 10/05/2017 TOI MONTAÑO MD Ot I70.202 UNSP ATHSCL [place] [facility] 10/05/2017 TOI MONTAÑO MD, Ot J43.9 EMPHYSEMA, UNSPECIFIED 10/05/2017 TOI MONTAÑO MD Ot Z79.899 OTHER PAPER TWISTER TENDER (CURRENT) DRUG THERAPY 10/05/2017 TOI MONTAÑO MD Ot Z87.891 PERSONAL HISTORY OF NICOTINE DEPENDENCE Procedures Code Description Performed By Performed On 889102S DILATION OF 1 COR ART WITH DRUG-ELUT INT 08/07/2017 [id number] EXTIRPATION OF MATTER FROM 1 COR ART, PE 08/07/2017 [id number] INSPECTION OF UPPER INTESTINAL TRACT, EN 08/07/2017 [id number] MEASURE OF CARDIAC SAMPL PRESSURE, L H 08/07/2017 [id number] FLUOROSCOPY OF MULT COR ART USING L OSM 08/07/2017 [id number] FLUOROSCOPY OF LEFT HEART USING LOW OSMO 08/07/2017 [id number] FLUOROSCOPY OF SINGLE CORONARY ARTERY US 08/08/2017 [...] ABO+Rh group BP NRG Transfusion band number [id number] Blood group antibody screen NEGATIVE NR [...] i.cardiac measurement (mass/volume) 9.32 ng /mL <0.30 Automated blood complete blood count (hemogram) panel - 08/22/17 08:45 Blood leukocytes automated count (number/volume) 9.4 10*3/uL 4.3-11.0 Blood erythrocytes automated count (number/volume) 5.01 10*6/uL 4.35-5.85 Venous blood hemoglobin measurement (mass/volume) 15.3 g/dL 11.5-16.0 Blood hematocrit (volume fraction) 46 % 35-52 Automated erythrocyte mean corpuscular volume 91 [foz_us] 80-99 Automated erythrocyte mean corpuscular hemoglobin (mass per erythrocyte) 31 pg 25-34 Automated erythrocyte mean corpuscular hemoglobin concentration measurement ( mass/volume) 34 g/dL 32-36 Automated erythrocyte distribution width ratio 13.8 % 10.0-14.5 Automated blood platelet count (count/volume) 223 10*3/uL 130-400 Automated blood platelet mean volume measurement 11.5 [foz_us] 7.4-10.4 Comprehensive metabolic panel - 08/22/17 08:45 Serum or plasma sodium measurement (moles/volume) 140 mmol/L 135-145 Serum or plasma potassium measurement (moles/volume) 4.3 mmol/L 3.6-5.0 Serum or plasma chloride measurement (moles/volume) 102 mmol/L 98-107 Carbon dioxide 29 mmol/L 21-32 Serum or plasma anion gap determination (moles/volume) 9 mmol/L 5-14 Serum or plasma urea nitrogen measurement (mass/volume) 23 mg/dL 7-18 Serum or plasma creatinine measurement (mass/volume) 1.07 mg/dL 0.60-1.30 Serum or plasma urea nitrogen/creatinine mass ratio 21 NRG Serum or plasma creatinine measurement with calculation of estimated glomerular filtration rate 50 NRG Serum or plasma glucose measurement (mass/volume) 126 mg/dL 70-105 Serum or plasma calcium measurement (mass/volume) 9.7 mg/dL 8.5-10.1 Serum or plasma total bilirubin measurement (mass/volume) 1.1 mg/dL 0.1-1.0 Serum or plasma alkaline phosphatase measurement (enzymatic activity/volume) 103 U/L 40-136 Serum or plasma aspartate aminotransferase measurement (enzymatic activity/ volume) 20 U/L 5-34 Serum or plasma alanine aminotransferase measurement (enzymatic activity/volume ) 21 U/L 0-55 Serum or plasma protein measurement (mass/volume) 7.9 g/dL 6.4-8.2 Serum or plasma albumin measurement (mass/volume) 4.1 g/dL 3.2-4.5 Complete urinalysis with reflex to culture - 08/22/17 08:45 Urine color determination YELLOW NRG Urine clarity determination CLEAR NRG Urine pH measurement by test strip 5 5-9 Specific gravity of urine by test strip 1.020 1.016- 1.022 Urine protein assay by test strip, semi-quantitative 1+ NEGATIVE Urine glucose detection by automated test strip NEGATIVE NEGATIVE Erythrocytes detection in urine sediment by light microscopy 1+ NEGATIVE Urine ketones detection by automated test strip NEGATIVE NEGATIVE Urine nitrite detection by test strip NEGATIVE NEGATIVE Urine total bilirubin detection by test strip NEGATIVE NEGATIVE Urine urobilinogen measurement by automated test strip (mass/volume) NORMAL NORMAL Urine leukocyte esterase detection by dipstick 2+ NEGATIVE Automated urine sediment erythrocyte count by microscopy (number/high power field) RARE NRG Automated urine sediment leukocyte count by microscopy (number/high power field ) [HPF] NRG Bacteria detection in urine sediment by light microscopy MODERATE NRG Squamous epithelial cells detection in urine sediment by light microscopy 25-50 NRG Crystals detection in urine sediment by light microscopy NONE NRG Casts detection in urine sediment by light microscopy NONE NRG Mucus detection in urine sediment by light microscopy NEGATIVE NRG Complete urinalysis with reflex to culture YES NRG PT panel in platelet poor plasma by coagulation assay - 08/22/17 08:45 Prothrombin time (PT) in platelet poor plasma by coagulation assay 12.8 s 12.2-14.7 INR in platelet poor plasma or blood by coagulation assay 1.0 0.8-1.4 Activated partial thromboplastin time (aPTT) in platelet poor plasma bycoagulation assay - 08/22/17 08:45 Activated partial thromboplastin time (aPTT) in platelet poor plasma bycoagulation assay 24 s 24-35 Bacterial urine culture - 08/22/17 08:45 Bacterial urine culture [id number] NRG COLONY COUNT 10,000/ML - 100,000/ML NRG FTX;REPORTABLE SENSITIVITY NOT USUALLY PERFORMED FOR NRG URINE CULTURE RESULTS PLUS NRG FREE TEXT ENTRY 2 THIS ORGANISM NRG Methicillin resistant Staphylococcus aureus (MRSA) screening culture - 08:45 Methicillin resistant Staphylococcus aureus (MRSA) screening culture NEG NRG Automated blood complete blood count (hemogram) panel - 08/23/17 03:05 Blood leukocytes automated count (number/volume) 9.1 10*3/uL 4.3-11.0 Blood erythrocytes automated count (number/volume) 4.35 10*6/uL 4.35-5.85 Venous blood hemoglobin measurement (mass/volume) 13.2 g/dL 11.5-16.0 Blood hematocrit (volume fraction) 40 % 35-52 Automated erythrocyte mean corpuscular volume 91 [foz_us] 80-99 Automated erythrocyte mean corpuscular hemoglobin (mass per erythrocyte) 30 pg 25-34 Automated erythrocyte mean corpuscular hemoglobin concentration measurement ( mass/volume) 33 g/dL 32-36 Automated erythrocyte distribution width ratio 13.6 % 10.0-14.5 Automated blood platelet count (count/volume) 194 10*3/uL 130-400 Automated blood platelet mean volume measurement 11.9 [foz_us] 7.4-10.4 Whole blood basic metabolic panel - 08/23/17 03:05 Serum or plasma sodium measurement (moles/volume) 139 mmol/L 135-145 Serum or plasma potassium measurement (moles/volume) 4.1 mmol/L 3.6-5.0 Serum or plasma chloride measurement (moles/volume) 105 mmol/L 98-107 Carbon dioxide 26 mmol/L 21-32 Serum or plasma anion gap determination (moles/volume) 8 mmol/L 5-14 Serum or plasma urea nitrogen measurement (mass/volume) 15 mg/dL 7-18 Serum or plasma creatinine measurement (mass/volume) 0.78 mg/dL 0.60-1.30 Serum or plasma urea nitrogen/creatinine mass ratio 19 NRG Serum or plasma creatinine measurement with calculation of estimated glomerular filtration rate > NRG Serum or plasma glucose measurement (mass/volume) 92 mg/dL 70-105 Serum or plasma calcium measurement (mass/volume) 8.7 mg/dL 8.5-10.1 Automated blood complete blood count (hemogram) panel - 09/26/17 07:24 Blood leukocytes automated count (number/volume) 7.9 10*3/uL 4.3-11.0 Blood erythrocytes automated count (number/volume) 4.31 10*6/uL 4.35-5.85 Venous blood hemoglobin measurement (mass/volume) 13.0 g/dL 11.5-16.0 Blood hematocrit (volume fraction) 39 % 35-52 Automated erythrocyte mean corpuscular volume 91 [foz_us] 80-99 Automated erythrocyte mean corpuscular hemoglobin (mass per erythrocyte) 30 pg 25-34 Automated erythrocyte mean corpuscular hemoglobin concentration measurement ( mass/volume) 33 g/dL 32-36 Automated erythrocyte distribution width ratio 13.9 % 10.0-14.5 Automated blood platelet count (count/volume) 173 10*3/uL 130-400 Automated blood platelet mean volume measurement 11.6 [foz_us] 7.4-10.4 PT panel in platelet poor plasma by coagulation assay - 09/26/17 07:24 Prothrombin time (PT) in platelet poor plasma by coagulation assay 12.6 s 12.2-14.7 INR in platelet poor plasma or blood by coagulation assay 0.9 0.8-1.4 Activated partial thromboplastin time (aPTT) in platelet poor plasma bycoagulation assay - 09/26/17 07:24 Activated partial thromboplastin time (aPTT) in platelet poor plasma bycoagulation assay 26 s 24-35 Comprehensive metabolic panel - 09/26/17 07:24 Serum or plasma sodium measurement (moles/volume) 143 mmol/L 135-145 Serum or plasma potassium measurement (moles/volume) 3.9 mmol/L 3.6-5.0 Serum or plasma chloride measurement (moles/volume) 106 mmol/L 98-107 Carbon dioxide 26 mmol/L 21-32 Serum or plasma anion gap determination (moles/volume) 11 mmol/L 5-14 Serum or plasma urea nitrogen measurement (mass/volume) 17 mg/dL 7-18 Serum or plasma creatinine measurement (mass/volume) 0.90 mg/dL 0.60-1.30 Serum or plasma urea nitrogen/creatinine mass ratio 19 NRG Serum or plasma creatinine measurement with calculation of estimated glomerular filtration rate > NRG Serum or plasma glucose measurement (mass/volume) 122 mg/dL 70-105 Serum or plasma calcium measurement (mass/volume) 9.3 mg/dL 8.5-10.1 Serum or plasma total bilirubin measurement (mass/volume) 0.8 mg/dL 0.1-1.0 Serum or plasma alkaline phosphatase measurement (enzymatic activity/volume) 111 U/L 40-136 Serum or plasma aspartate aminotransferase measurement (enzymatic activity/ volume) 21 U/L 5-34 Serum or plasma alanine aminotransferase measurement (enzymatic activity/volume ) 22 U/L 0-55 Serum or plasma protein measurement (mass/volume) 7.3 g/dL 6.4-8.2 Serum or plasma albumin measurement (mass/volume) 4.0 g/dL 3.2-4.5 Lipid 1996 panel - 09/26/17 07:24 Serum or plasma triglyceride measurement (mass/volume) 110 mg/dL <150 Serum or plasma cholesterol measurement (mass/volume) 130 mg/dL < 200 Serum or plasma cholesterol in HDL measurement (mass/volume) 45 mg/ dL 40-60 Cholesterol in LDL [mass/volume] in serum or plasma by direct assay 66 mg/dL 1-129 Serum or plasma cholesterol in VLDL measurement (mass/volume) 22 mg/ dL 5-40 Methicillin resistant Staphylococcus aureus (MRSA) screening culture - 07:24 Methicillin resistant Staphylococcus aureus (MRSA) screening culture NEG NRG Automated blood complete blood count (hemogram) panel - 09/27/17 03:25 Blood leukocytes automated count (number/volume) 7.8 10*3/uL 4.3-11.0 Blood erythrocytes automated count (number/volume) 3.28 10*6/uL 4.35-5.85 Venous blood hemoglobin measurement (mass/volume) 10.0 g/dL 11.5-16.0 Blood hematocrit (volume fraction) 30 % 35-52 Automated erythrocyte mean corpuscular volume 93 [foz_us] 80-99 Automated erythrocyte mean corpuscular hemoglobin (mass per erythrocyte) 30 pg 25-34 Automated erythrocyte mean corpuscular hemoglobin concentration measurement ( mass/volume) 33 g/dL 32-36 Automated erythrocyte distribution width ratio 14.0 % 10.0-14.5 Automated blood platelet count (count/volume) 130 10*3/uL 130-400 Automated blood platelet mean volume measurement 12.3 [foz_us] 7.4-10.4 Whole blood basic metabolic panel - 09/27/17 03:25 Serum or plasma sodium measurement (moles/volume) 141 mmol/L 135-145 Serum or plasma potassium measurement (moles/volume) 3.5 mmol/L 3.6-5.0 Serum or plasma chloride measurement (moles/volume) 109 mmol/L 98-107 Carbon dioxide 24 mmol/L 21-32 Serum or plasma anion gap determination (moles/volume) 8 mmol/L 5-14 Serum or plasma urea nitrogen measurement (mass/volume) 13 mg/dL 7-18 Serum or plasma creatinine measurement (mass/volume) 0.71 mg/dL 0.60-1.30 Serum or plasma urea nitrogen/creatinine mass ratio 18 NRG Serum or plasma creatinine measurement with calculation of estimated glomerular filtration rate > NRG Serum or plasma glucose measurement (mass/volume) 140 mg/dL 70-105 Serum or plasma calcium measurement (mass/volume) 8.5 mg/dL 8.5-10.1 Encounters ACCT No. Visit Date/Time Discharge Status Pt. Type Provider Facility Loc./Unit Complaint [id number] 10/10/2017 13:00:00 10/10/2017 23:59:59 CLS Preadmit TOI MONTAÑO MD Via [facility] PUD [id number] 09/26/2017 06:32:00 09/27/2017 12:15:00 DIS Outpatient TOI MONTAÑO MD Via [facility] CATH PAD,CHF,HLP [id number] 09/03/2017 08:19:00 09/03/2017 23:59:59 CLS Outpatient REBECCA CARRERO DO [facility] RT COPD [id number] 08/27/2017 09:31:00 08/27/2017 23:59:59 CLS Outpatient REBECCA CARRERO DO [facility] RT COPD [id number] 08/22/2017 07:45:00 08/23/2017 08:35:00 DIS Outpatient TOI MONTAÑO MD [facility] CATH CAD,CHF [id number] 08/20/2017 11:51:00 08/20/2017 23:59:59 CLS Outpatient JUAN FRANCISCO BURLESON MD [facility] RAD PERIPHERAL VASCULAR DISEASE [id number] 08/17/2017 10:14:00 08/17/2017 12:40:00 DIS Outpatient JUAN FRANCISCO BURLESON MD [facility] ENDO HEMATEMESIS [id number] 08/14/2017 11:32:00 08/14/2017 23:59:59 CLS Preadmit REBECCA CARRERO DO [facility] SLEEP COPD [id number] 08/10/2017 08:35:00 08/11/2017 08:59:00 DIS Inpatient FRANNY CARRILLO MD [facility] ICU ACUTE DECOMPENSATED HEART FAILURE [id number] 08/07/2017 02:37:00 08/09/2017 10:30:00 DIS Inpatient TOI MONTAÑO MD [facility] ICU ACUTE PR [id number] 09/13/2015 09:11:00 09/13/2015 23:59:59 CLS Outpatient THERESA ISRAEL DO [facility] RAD F/U LUNG INFLITRATE [id number] 04/13/2015 10:37:00 04/13/2015 23:59:59 CLS Preadmit THERESA ISRAEL DO [facility] REHAB [id number] 04/05/2015 18:45:00 04/06/2015 08:41:00 DIS Inpatient THERESA ISRAEL DO [facility] 4TH FEVER,HYPOTENSION,L ARM PAIN [id number] 02/20/2015 01:30:00 02/22/2015 14:30:00 DIS Inpatient THERESA ISRAEL DO [facility] SURGICAL LEFT BASILAR PNEUMONIA [id number] 11/08/2013 11:58:00 11/10/2013 12:05:00 DIS Inpatient OCTAVIO CUNNINGHAM DO [facility] 4TH PNEUMONIA [id number] 11/14/2017 11:00:00 PEN Preadmit TOI MONTAÑO MD [facility] CATH PVD [id number] 09/16/2015 07:48:00 Document Registration [id number] 12/17/2010 21:26:00 Document Registration [id number] 12/17/2010 00:15:00 Document Registration [id number] 10/14/2010 21:05:00 Document Registration [id number] 05/29/2006 13:35:00 Document Registration [id number] 02/20/2015 02:03:24 ACT Document Registration
[2017-11-14] MEDS ORDERED: NS IV 1000 ML 1,000 ML IV SCH (08:45)
[2017-11-14 09:07] LABS: HEMOGLOBIN 13.4 G/DL (11.5-16.0); MEAN PLATELET VOLUME 11.1 FL (7.4-10.4); RED BLOOD COUNT 4.51 10^6/uL (4.35-5.85); RED CELL DISTRIBUTION WIDTH 13.8 % (10.0-14.5); WHITE BLOOD COUNT 8.7 10^3/uL (4.3-11.0)
[2017-11-14 09:09] LABS: BILIRUBIN,URINE NEGATIVE (NEGATIVE); CLARITY,URINE CLEAR; COLOR,URINE YELLOW; GLUCOSE, URINE (UA) NEGATIVE (NEGATIVE); KETONES,URINE NEGATIVE (NEGATIVE); LEUKOCYTE ESTERASE ,URINE NEGATIVE (NEGATIVE); NITRITE,URINE NEGATIVE (NEGATIVE); PH,URINE 6 (5-9); PROTEIN,URINE NEGATIVE (NEGATIVE); UROBILINOGEN,URINE NORMAL (NORMAL)
--- NOTE | 2017-11-14 09:10 | Diagnostic Imaging Report ---
INDICATION: Peripheral angiopathy. COMPARISON: 09/26/2017 FINDINGS: Upright portable view of the chest is obtained. Heart size is normal. The pulmonary vessels appear unremarkable. Postoperative changes are again seen in the mediastinum. There is no pneumothorax, mediastinal widening or pleural fluid. Lungs are hyperinflated suggestive of COPD but otherwise clear. IMPRESSION: No radiographic evidence of an acute cardiopulmonary abnormality. No significant interval change from the prior study. Dictated by: Dictated on workstation # [id number]
[2017-11-14 09:16] LABS: BACTERIA,URINE TRACE /HPF; RBC,URINE RARE /HPF
[2017-11-14] MEDS ORDERED: CHOL200012 PO (09:20)
[2017-11-14 09:23] LABS: INR 0.9 (0.8-1.4); PROTHROMBIN TIME PATIENT 12.5 SEC (12.2-14.7)
[2017-11-14 09:27] LABS: ALBUMIN 4.3 GM/DL (3.2-4.5); BILIRUBIN,TOTAL 0.8 MG/DL (0.1-1.0); CALCIUM 9.5 MG/DL (8.5-10.1); CREATININE SERUM 0.94 MG/DL (0.60-1.30); POTASSIUM 4.2 MMOL/L (3.6-5.0); TOTAL PROTEIN 7.9 GM/DL (6.4-8.2)
[2017-11-14] MEDS ORDERED: MIDAZOLAM 5 MG/5 ML (VERSED) VIAL ONE (11:13)
--- NOTE | 2017-11-14 11:13 | Cardiac Procedure Note-CS/ASA ---
Pre-Procedure Note Pre-Op Procedure Note H&P Reviewed The H&P was reviewed, patient examined and no changes noted. Date H&P Reviewed: November 14, 2017 Time H&P Reviewed: 11:13 Conscious Sedation Pre-Proced Time Reviewed: 11:13 ASA Class: 3 Airway Mallampati Classification: ([place] appropriate class) I. II. III, IV Lungs Heart ASA score ASA 1: a normal healthy patient ASA 2: a patient with a mild systemic disease (mid diabetes, controlled hypertension, obesity x ASA 3: a patient with a severe systemic disease that limits activity (angina , COPD, prior Myocardial infarction) ASA 4: a patient with an incapacitating disease that is a constant threat to life (CHF, renal failure) ASA 5: a moribund patient not expected to survive 24 hrs. (ruptured aneurysm) ASA 6: a declared brain patient whose organs are being harvested. For emergent operations, add the letter E after the classification Grade 3 Sedation Plan: Analgesia, Amnesia, Plan communicated to team members, Discussed options with patient/fam, Discussed risks with patient/fam Note The patient is an appropriate candidate to undergo the planned procedure, sedation, and anesthesia. The patient immediately re-assessed prior to indication. TOI MONTAÑO MD November 14, 2017 11:13
[2017-11-14] MEDS ORDERED: fentaNYL INJECTION 100 MCG/2 ML AMP ONE (11:14)
[2017-11-14] MEDS ORDERED: NITRO DRIP 25000 MCG/D5W 250 ML IV ONE (11:25)
[2017-11-14] MEDS ORDERED: HEParin 1000 UNIT/ML (10ML VIAL) FOR BOLUS ONE (11:25)
[2017-11-14] MEDS ORDERED: ASPIRIN 325 MG (5 GR) TABLET ONE (12:11)
[2017-11-14] MEDS ORDERED: CLOPIDOGREL 75 MG (PLAVIX) TABLET ONE (12:12)
[2017-11-14] MEDS ORDERED: PATIENT MAY USE OWN MEDS, ALL PO SCH (12:15)
--- NOTE | 2017-11-14 12:22 | Peripheral Report ---
Peripheral Report Physician (s)/Counter Intelligence Technician (s) Physician TOI MONTAÑO MD Pre-Procedure Diagnosis Pre-Procedure Diagnosis: Peripheral arterial disease, coronary artery disease Post-Procedure Note Procedure Start Date: November 14, 2017 Name of Procedure: Abdominal aortogram with bilateral runoff Recorded balloon angioplasty to the right SFA Findings/Procedure Note PROCEDURE NOTE: After explaining the procedure to the patient, all pros and cons were explained , all questions were answered. The patient signed the consent and then she was placed on the cardiac catheterization laboratory. The patient was placed on the cardiac catheterization laboratory. Groin was prepped SL fashion local anesthesia was used. Sheath placed in the left femoral artery. Runoff to the left lower except he was done through the sheath then a rim catheter was used to crossover and it was placed in the right common iliac artery, runoff to the right lower except he was made then a stork wire was advanced to the distal SFA, the sheath was exchanged into 6 [place] 45 sheath, 6000 units of heparin were given, predilatation with balloon 5x40 was done at multiple segment then I used Lutonix six-time 100 recorded balloon inflated to 7 shweta for 3 minutes post inflations showed excellent results, no residual stenosis there is mild to moderate disease of the mid and distal SFA. The sheath was exchanged into short 6 [place] sheath then a pigtail catheter was advanced to the abdominal aorta and abdominal aortogram was done. At the end of the procedure sheath was removed, Mynx device used FINDINGS: Abdominal aortogram showed mild_disease in the abdominal aorta and the bifurcation, iliac arteries appeared to have mild disease, inferior mesenteric artery is normal, the renal artery was not well visualized. Left lower extremity runoff showed patent stent with good flow down to the foot , small vessel disease distally. AV fistula was noted at the popliteal artery on the left Right lower extremity, angiogram showed severe stenosis at the proximal SFA, successful balloon angioplasty then drug-coated balloon using Lutonix 6x100 with excellent results, mild to moderate disease at the mid and distal SFA, good flow down to the foot. CONCLUSIONS: 1. Severe stenosis of the proximal right SFA, successful angioplasty then drug- coated balloon using Lutonix 6x100 with excellent results, mild to moderate disease at the mid SFA 2. Patent stent in the left lower extremity with excellent flow down to the foot 3. Incidental finding AV fistula was noted at the left popliteal artery DISCUSSION AND RECOMMENDATIONS: Continue with medical therapy and continue to monitor Anesthesia Type: Conscious Sedation Estimated blood loss (mL): 10 ml Contrast Amount: 62 ml Total Radiation Dose: 59 mGy Post-Procedure Diagnosis Post-operative diagnosis: Peripheral arterial disease Claudications Coronary artery disease Hypertension Hyperlipidemia TOI MONTAÑO MD November 14, 2017 12:22
[2017-11-14] MEDS: NS IV 1000 ML 1,000 ML IV SCH (13:59)
[2017-11-14] MEDS ORDERED: RT-ALBUTEROL/IPRATROPIUM 3 ML (DUONEB) VIAL IH PRN (18:45)
[2017-11-14] MEDS ORDERED: ATORVASTATIN 80 MG (LIPITOR) TABLET PO SCH (21:00)
[2017-11-14] MEDS ORDERED: meTOprolol TARTRATE 50 MG (LOPRESSOR) TAB PO SCH (21:00)
[2017-11-15] VITALS: BP 147/87
[2017-11-15] MEDS: NS IV 1000 ML 1,000 ML IV SCH ×2 (00:05→08:09)
[2017-11-15 04:00] VITALS: BP 132/78
[2017-11-15 04:09] LABS: HEMOGLOBIN 10.9 G/DL (11.5-16.0); MEAN PLATELET VOLUME 11.5 FL (7.4-10.4); RED BLOOD COUNT 3.58 10^6/uL (4.35-5.85); RED CELL DISTRIBUTION WIDTH 13.6 % (10.0-14.5); WHITE BLOOD COUNT 7.6 10^3/uL (4.3-11.0)
[2017-11-15 04:18] LABS: BUN/CREATININE RATIO 20; CALCIUM 8.6 MG/DL (8.5-10.1); CARBON DIOXIDE 23 MMOL/L (21-32); CHLORIDE 110 MMOL/L (98-107); CREATININE SERUM 0.76 MG/DL (0.60-1.30); GFR ESTIMATED > 60; GLUCOSE 78 MG/DL (70-105); SODIUM 142 MMOL/L (135-145)
[2017-11-15] MEDS ORDERED: PANTOPRAZOLE 40 MG (PROTONIX) TAB PO SCH (07:00)
[2017-11-15 07:29] VITALS: BP 123/73
--- NOTE | 2017-11-15 07:40 | Cardiology Progress Note ---
Subjective Date Seen by Provider: November 15, 2017 Time Seen by Provider: 07:38 Subjective/Events-last exam Patient is feeling well, still having some pain at her left groin from the access site, no hematoma was noted at this time, had a small hematoma yesterday which was improved with manual pressure. Review of Systems General: No Chills, No Night Sweats, No Fatigue, No Malaise, No Appetite, No Other HEENT: No Head Aches, No Visual Changes, No Eye Pain, No Ear Pain, No Dysphasia , No Sinus Congestion, No Post Nasal Drip, No Sore Throat, No Other Pulmonary: No Dyspnea, No Cough, No Pleuritic Chest Pain, No Other Cardiovascular: No: Chest Pain, Palpitations, Orthopnea, Paroxysmal Noc. Dyspnea, Edema, Lt Headedness, Other Objective-Cardiology Exam Last Set of Vital Signs Vital Signs 11/15/17 11/15/17 11/15/17 04:00 07:29 07:33 Temp 97.8 Pulse 78 Resp 20 B/P (MAP) 123/73 (90) Pulse Ox 96 O2 Delivery Room Air Capillary Refill : Less Than 3 Seconds I&O Intake and Output 11/15/17 00:00 Intake Total 680 ml Balance 680 ml Intake Oral 680 ml # Voids 1 General: Alert, Oriented X3, Cooperative HEENT: Atraumatic, PERRLA Neck: Supple, No JVD, No Thyromegaly Lungs: Clear to Auscultation, Normal Air Movement Heart: Regular Rate, Normal S1, Normal S2, No Murmurs Abdomen: Normal Bowel Sounds, Soft, No Tenderness, No Hepatosplenomegaly, No Masses Extremities: No Clubbing, No Cyanosis, No Edema, Normal Pulses, No Tenderness/ Swelling Skin: No Rashes, No Breakdown, No Significant Lesion Neuro: Normal Gait, Normal Speech, Strength at 5/5 X4 Ext, Normal Tone, Sensation Intact Psych/Mental Status: Mental Status NL, Mood NL Results Lab Laboratory Tests 11/14/17 08:56 11/15/17 03:15 A/P-Cardiology Admission Diagnosis Peripheral arterial disease Hypertension Hyperlipidemia Coronary artery disease Assessment/Plan Peripheral arterial disease, status post drug-coated balloon intervention to the right SFA with excellent results 1. Severe stenosis of the proximal right SFA, successful angioplasty then drug- coated balloon using Lutonix 6x100 with excellent results, mild to moderate disease at the mid SFA 2. Patent stent in the left lower extremity with excellent flow down to the foot 3. Incidental finding AV fistula was noted at the left popliteal artery Coronary artery disease, history of myocardial infarction Hypertension, continue current medications Hyperlipidemia, continue current medications TOI MONTAÑO MD November 15, 2017 07:40
[2017-11-15] MEDS ORDERED: meTOprolol TARTRATE 50 MG (LOPRESSOR) TAB PO SCH (09:00)
[2017-11-15] MEDS ORDERED: FUROSEMIDE 20 MG (LASIX) TAB PO SCH (09:00)
[2017-11-15] MEDS ORDERED: CLOPIDOGREL 75 MG (PLAVIX) TABLET PO SCH (09:00)
[2017-11-15] MEDS ORDERED: ASPIRIN E.C. 81 MG (ECOTRIN) TAB PO SCH (09:00)
--- NOTE | 2017-11-15 09:49 | Discharge Inst-Post CATH ---
Discharge Inst-CATH Post Cardiac Cath D/C Inst Follow Up/Plan Appointment with Dr Carcamo office in 2-4 weeks CARDIAC CATH DISCHARGE INSTRUCTIONS *Hold Metformin for 48 hours post heart cath. ACTIVITY * Go Home directly and rest. * Limit activity of the leg (or wrist if it was used) for 7 days including aerobics, swimming, jogging, bicycling, etc. * Restrict stair-climbing for 7 days if possible, if not, climb up with your non -cath leg, then bring together on the same step. * Avoid lifting, pushing, pulling or excessive movement of the affected extremity for 7 days. * Customary sexual activity may be resumed after 2 days-use caution not to use a position that strains or causes pain to the affected extremity. * No driving for 24 hours. * NO SMOKING. * Avoid straining for bowel movements for 7 days. * Gentle walking on level ground is allowed. * Returning to work will depend on the type of procedure and the results. Your doctor will discuss this with you. CALL YOUR DOCTOR FOR ANY OF THE FOLLOWING: *If bleeding from the puncture site occurs- Apply gentle pressure to site with clean cloth and call your doctor or EMS. * If a knot or lump forms under the skin, increases in size, or causes pain. * If bruising appears to be worsening or moving further down your leg instead of disappearing. * Temperature above 101 F. CARE OF YOUR GROIN INCISION; * Bruising or purple discoloration of the skin near the puncture site is common. * You may shower only, no bathtub bathing for 5 days. Be careful to avoid slipping as your leg may feel stiff. * If a closure device was used on your femoral artery, please see the attached guide regarding care of the device and your leg. * REMOVE the dressing from your groin the next day after your procedure in the shower. CARE OF YOUR WRIST INCISION; * Bruising or purple discoloration of the skin near the puncture site is common. * You may shower. * DO NOT submerge wrist. * Remove dressing in 24 hours. TOI CARCAMO MD November 15, 2017 9:49 am
[2017-11-15 10:13] VITALS: BP 135/62
[2017-11-15 10:26] VITALS: BP 135/62
== END 2017-11-15 10:21 | disposition home or self-care (01) ==
LOC: CATH 08:24 → ICU 12:30 → CATH 11-15 10:21
PROVIDERS: ATTEND Internal Medicine Cardiovascular Disease
DX: I70.211 Atherosclerosis of native arteries of extremities with intermittent claudication, right leg (principal); I25.10 Atherosclerotic heart disease of native coronary artery without angina pectoris; I11.0 Hypertensive heart disease with heart failure; E78.5 Hyperlipidemia, unspecified; I25.2 Old myocardial infarction; Z87.891 Personal history of nicotine dependence; I50.20 Unspecified systolic (congestive) heart failure; J44.9 Chronic obstructive pulmonary disease, unspecified; I49.3 Ventricular premature depolarization; Z79.899 Other long term (current) drug therapy
CPT/HCPCS: 36415; 71045; 75630; 80048; 80053; 81000; 85027; 85347; 85610; 85730; 87081; 93005

== ENCOUNTER → 2018-04-04 | Outpatient (CLI) | payer MEDICARE, OTHER ==
[~2018-04-04] MED LIST changes: +CHOL200012 PO; -IPRA3AMP IH; +IPRA3AMP31 IH; +TRAZ-189 PO; -TRAZ-28 PO
[2018-04-04 10:25] LABS: BASOPHILS % (AUTO) 0 % (0-10); EOSINOPHILS % (AUTO) 0 % (0-10); HEMATOCRIT 35 % (35-52); HEMOGLOBIN 11.4 G/DL (11.5-16.0); LYMPHOCYTES % (AUTO) 7 % (12-44); MEAN CORPUSCULAR HEMOGLOBIN 29 PG (25-34); MEAN CORPUSCULAR HGB CONC 33 G/DL (32-36); MEAN CORPUSCULAR VOLUME 88 FL (80-99); MEAN PLATELET VOLUME 11.3 FL (7.4-10.4); MONOCYTES % (AUTO) 6 % (0-12); NEUTROPHILS % (AUTO) 87 % (42-75); PLATELET COUNT 165 10^3/uL (130-400); RED BLOOD COUNT 3.94 10^6/uL (4.35-5.85); RED CELL DISTRIBUTION WIDTH 15.1 % (10.0-14.5)
[2018-04-04 10:54] LABS: ANISOCYTOSIS SLIGHT; BAND NEUTROPHILS 7 %; BASOPHILS % (MANUAL) 0 %; EOSINOPHILS % (MANUAL) 0 %; LYMPHOCYTES % (MANUAL) 11 %; MONOCYTES % (MANUAL) 10 %; NEUTROPHILS % (MANUAL) 72 %
[2018-04-04 10:55] LABS: ELLIPT/OVALOCYTES SLIGHT
--- NOTE | 2018-04-04 10:55 | Diagnostic Imaging Report ---
Clinical indication: Patient states shortness of air, cough, and fever for the past few days. Exam: Chest x-ray PA and lateral views. Comparisons: Chest x-ray dated 11/14/2017. Findings: There is development of minimal patchy airspace disease in the medial left lung base. Otherwise, lungs are stable. There is increased lung markings throughout both lungs representing scarring. There is bilateral apical pleural-parenchymal thickening/scarring. There is no pleural effusion or pneumothorax. Pulmonary vasculature and cardiac silhouettes within normal limits. Stable postop changes to the chest with sternotomy wires. No significant interval abnormality. Impression: 1: There is interval development of minimal patchy airspace opacities in left lung base which may represent lung infiltrate. 2: Otherwise, stable chest x-ray exam with scarring and increased lung markings throughout both lungs. 3: Stable postop changes to the chest. Dictated by: Dictated on workstation # [id number]
== END ==
LOC: RAD 10:08
PROVIDERS: ATTEND Internal Medicine
DX: R06.02 Shortness of breath (principal); R50.9 Fever, unspecified; R91.8 Other nonspecific abnormal finding of lung field; R05 Cough; Z98.890 Other specified postprocedural states
CPT/HCPCS: 36415; 71046; 85007; 85027; 87804

== ENCOUNTER → 2018-04-06 | Emergency (ER) | payer MEDICARE, OTHER ==
[~2018-04-06] VITALS: Ht 167.6 cm; Wt 77.1 kg
[~2018-04-06] MED LIST changes: +NS IV 1000 ML 1,000 ML IV ONE; +RT-ALBUTEROL/IPRATROPIUM 3 ML (DUONEB) VIAL INH ONE; +RT-ALBUTEROL/IPRATROPIUM 3 ML (DUONEB) VIAL ONE; +predniSONE 20 MG TAB PO ONE
--- OUTSIDE RECORDS SUMMARY | 2018-04-06 10:39 | XMS REPORT | Continuity of Care Document ---
Author Author [facility] Organization [facility] Address Unknown Phone Unavailable Allergies Active Description Code Type Severity Reaction Onset Reported/Identified Relationship to Patient Clinical Status Yes No Known Drug Allergies [id number] Drug Allergy Unknown N/A 11/02/2009 Medications There is no data. Problems Date Dx Coded Attending Type Code Diagnosis Diagnosed By 10/14/2010 Ot 491.22 10/14/2010 Ot 786.05 12/17/2010 Ot 277.4 12/17/2010 Ot 397.0 12/17/2010 Ot 401.9 12/17/2010 Ot 496 12/17/2010 Ot 785.6 12/17/2010 Ot 786.59 12/17/2010 Ot 790.95 12/17/2010 Ot V15.82 12/17/2010 Ot 305.1 12/17/2010 Ot 466.0 12/17/2010 Ot 780.60 11/10/2013 OCTAVIO CUNINNGHAM DO Ot 397.0 TRICUSPID VALVE DISEASE 11/10/2013 [...] MD Ot I25.10 ATHSCL HEART DISEASE OF [place] CORONARY 08/07/2017 TOI MONTAÑO MD Ot I27.20 [...] MD Ot I25.10 ATHSCL HEART DISEASE OF [place] CORONARY 08/08/2017 TOI MONTAÑO MD Ot I27.20 [...] MD Ot I25.10 ATHSCL HEART DISEASE OF [place] CORONARY 08/09/2017 TOI MONTAÑO MD Ot I27.20 [...] SHOCK 08/09/2017 TOI MONTAÑO MD Ot 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.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 OF 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 08/09/2017 TOI MONTAÑO MD Ot Z79.02 YOKER 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 OF ANTITHROMBOTI 08/09/2017 TOI MONTAÑO [...] TOI MONTAÑO MD Ot I21.29 STEMI INVOLVING [facility] SITES 08/09/2017 TOI MONTAÑO MD Ot I25.10 ATHSCL HEART DISEASE OF [place] CORONARY 08/09/2017 TOI MONTAÑO MD Ot I27.20 [...] SHOCK 08/09/2017 TOI MONTAÑO MD Ot Z79.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 OF 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 08/09/2017 TOI MONTAÑO MD Ot Z79.02 SHELTER (CURRENT) USE OF ANTITHROMBOTI 08/09/2017 TOI MONTAÑO [...] HYPERLIPIDEMIA 08/11/2017 FRANNY CARRILLO MD Ot E87.8 [facility] DISORDERS OF ELECTROLYTE AND FLUID B 08/11/2017 FRANNY CARRILLO MD Ot F41.9 ANXIETY DISORDER, UNSPECIFIED 08/11/2017 FRANNY CARRILLO MD, Ot I10 ESSENTIAL (PRIMARY) HYPERTENSION 08/11/2017 FRANNY CARRILLO MD, Ot I25.10 ATHSCL HEART DISEASE OF [place] CORONARY 08/11/2017 FRANNY CARRILLO MD, Ot I25.2 [...] HYPOXEMIA 08/11/2017 FRANNY CARRILLO MD, Ot Z79.82 SHELTER (CURRENT) USE OF ASPIRIN 08/11/2017 FRANNY CARRILLO MD, Ot Z79.899 OTHER YOKER MACHINE OPERATOR (CURRENT) DRUG THERAPY 08/11/2017 FRANNY CARRILLO MD, [...] MD Ot I25.10 ATHSCL HEART DISEASE OF [place] CORONARY 08/11/2017 FRANNY CARRILLO MD, Ot I25.2 [...] HYPOXEMIA 08/11/2017 FRANNY CARRILLO MD Ot Z79.82 SHELTER (CURRENT) USE OF ASPIRIN 08/11/2017 FRANNY CARRILLO MD Ot Z79.899 OTHER YOKER MACHINE OPERATOR (CURRENT) DRUG THERAPY 08/11/2017 FRANNY CARRILLO MD [...] MD Ot I25.10 ATHSCL HEART DISEASE OF [place] CORONARY 08/14/2017 FRANNY CARRILLO MD, Ot I25.2 [...] HYPOXEMIA 08/14/2017 FRANNY CARRILLO MD, Ot Z79.82 YOKER 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 OF ASPIRIN 08/14/2017 FRANNY CARRILLO MD, Ot Z79.899 OTHER YOKER MACHINE OPERATOR (CURRENT) DRUG THERAPY 08/14/2017 FRANNY CARRILLO MD, Ot Z87.891 PERSONAL HISTORY OF NICOTINE DEPENDENCE 08/14/2017 FRANNY CARRILLO MD Ot Z95.5 PRESENCE OF CORONARY ANGIOPLASTY IMPLANT 08/17/2017 JUAN FRANCISCO BURLESON MD Ot I08.1 RHEUMATIC DISORDERS OF BOTH MITRAL AND T 08/17/2017 JUAN FRANCISCO BURLESON MD Ot I10 ESSENTIAL (PRIMARY) HYPERTENSION 08/17/2017 JUAN FRANCISCO BURLESON MD Ot I25.10 ATHSCL HEART DISEASE OF [place] CORONARY 08/17/2017 JUAN FRANCISCO BURLESON MD Ot [...] MD Ot I25.10 ATHSCL HEART DISEASE OF [place] CORONARY 08/20/2017 JUAN FRANCISCO BURLESON MD Ot [...] MD Ot I25.10 ATHSCL HEART DISEASE OF [place] CORONARY 08/23/2017 TOI MONTAÑO MD Ot I34.0 [...] URINE 08/23/2017 TOI MONTAÑO MD Ot Z79.82 SHELTER (CURRENT) USE OF ASPIRIN 08/23/2017 TOI MONTAÑO MD Ot Z79.899 OTHER YOKER MACHINE OPERATOR (CURRENT) DRUG THERAPY 08/23/2017 TOI MONTAÑO MD Ot Z95.5 PRESENCE OF CORONARY ANGIOPLASTY IMPLANT 08/23/2017 REBECCA CARRERO DO Ot J44.9 CHRONIC OBSTRUCTIVE PULMONARY DISEASE, U 08/23/2017 TOI MONTAÑO MD Ot E78.2 MIXED HYPERLIPIDEMIA 08/23/2017 TOI MONTAÑO MD Ot I10 ESSENTIAL (PRIMARY) HYPERTENSION 08/23/2017 TOI MONTAÑO MD Ot I25.10 ATHSCL HEART DISEASE OF [place] CORONARY 08/23/2017 TOI MONTAÑO MD Ot I34.0 [...] URINE 08/23/2017 TOI MONTAÑO MD Ot Z79.82 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 OF ASPIRIN 08/23/2017 TOI MONTAÑO MD Ot Z79.899 OTHER SHELTER (CURRENT) DRUG THERAPY 08/23/2017 TOI MONTAÑO MD [...] MD Ot I25.10 ATHSCL HEART DISEASE OF [place] CORONARY 08/28/2017 TOI MONTAÑO MD Ot I34.0 NONRHEUMATIC MITRAL (VALVE) INSUFFICIENC 08/28/2017 TOI MONTAÑO MD Ot I73.9 PERIPHERAL VASCULAR DISEASE, UNSPECIFIED 08/28/2017 TOI MONTAÑO MD Ot K27.9 PEPTIC ULC, SITE UNSP, UNSP AC OR CHR 08/28/2017 TOI MNOTAÑO MD Ot K92.2 GASTROINTESTINAL HEMORRHAGE, UNSPECIFIED 08/28/2017 TOI MONTAÑO MD Ot R06.02 SHORTNESS OF BREATH 08/28/2017 TOI MONTAÑO MD Ot R07.9 CHEST PAIN, UNSPECIFIED 08/28/2017 TOI MONTAÑO MD Ot R82.99 OTHER ABNORMAL FINDINGS IN URINE 08/28/2017 TOI MONTAÑO MD Ot Z79.82 YOKER 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 OF ASPIRIN 08/28/2017 TOI MONTAÑO MD Ot Z79.899 OTHER SHELTER (CURRENT) DRUG THERAPY 08/28/2017 TOI MONTAÑO MD Ot Z95.5 PRESENCE OF CORONARY ANGIOPLASTY IMPLANT 08/28/2017 REBECCA CARRERO DO Ot I25.10 ATHSCL HEART DISEASE OF [place] CORONARY 08/28/2017 REBECCA CARRERO DO Ot I48.91 [...] DO Ot I25.10 ATHSCL HEART DISEASE OF [place] CORONARY 09/26/2017 MAGAN REBECCA M Ot I48.91 UNSPECIFIED ATRIAL FIBRILLATION 09/26/2017 MAGAN REBECCA Ot J44.9 CHRONIC OBSTRUCTIVE PULMONARY DISEASE, U 09/26/2017 MAGAN SHAHREBECCA M Ot R06.02 SHORTNESS OF BREATH 09/26/2017 BENJY REYES, JUAN FRANCISCO [place] Ot I73.9 PERIPHERAL VASCULAR DISEASE, UNSPECIFIED 09/26/2017 REBECCA CARRERO DO Ot I25.10 ATHSCL HEART DISEASE OF [place] CORONARY 09/26/2017 MAGANREBECCA PANDYA DO M Ot I48.91 UNSPECIFIED ATRIAL FIBRILLATION 09/26/2017 REBECCA CARRERO DO Ot J44.9 CHRONIC OBSTRUCTIVE PULMONARY DISEASE, U 09/26/2017 MAGAN SHAHREBECCA Ot R06.02 SHORTNESS OF BREATH 09/27/2017 TOI MONTAÑO MD Ot E78.2 MIXED HYPERLIPIDEMIA 09/27/2017 TOI MONTAÑO MD Ot I10 ESSENTIAL (PRIMARY) HYPERTENSION 09/27/2017 TOI MONTAÑO MD Ot I25.10 ATHSCL HEART DISEASE OF [place] CORONARY 09/27/2017 TOI MONTAÑO MD Ot I49.3 VENTRICULAR PREMATURE DEPOLARIZATION 09/27/2017 TOI MONTAÑO MD Ot I70.202 UNSP ATHSCL [place] [facility] 09/27/2017 TOI MONTAÑO MD Ot I73.9 PERIPHERAL VASCULAR DISEASE, UNSPECIFIED 09/27/2017 TOI MONTAÑO MD Ot J43.9 EMPHYSEMA, UNSPECIFIED 09/27/2017 TOI MONTAÑO MD Ot Z79.899 OTHER SHELTER (CURRENT) DRUG THERAPY 09/27/2017 TOI MONTAÑO MD Ot Z87.891 PERSONAL HISTORY OF NICOTINE DEPENDENCE 09/27/2017 TOI MONTAÑO MD Ot E78.2 MIXED HYPERLIPIDEMIA 09/27/2017 TOI MONTAÑO MD Ot I10 ESSENTIAL (PRIMARY) HYPERTENSION 09/27/2017 TOI MONTAÑO MD Ot I25.10 ATHSCL HEART DISEASE OF [place] CORONARY 09/27/2017 TOI MONTAÑO MD Ot I49.3 VENTRICULAR PREMATURE DEPOLARIZATION 09/27/2017 TOI MONTAÑO MD Ot I73.9 PERIPHERAL VASCULAR DISEASE, UNSPECIFIED 09/27/2017 TOI MONTAÑO MD Ot J43.9 EMPHYSEMA, UNSPECIFIED 09/27/2017 TOI MONTAÑO MD Ot Z79.899 OTHER SHELTER (CURRENT) DRUG THERAPY 09/27/2017 TOI MONTAÑO MD Ot Z87.891 PERSONAL HISTORY OF NICOTINE DEPENDENCE 10/02/2017 TOI MONTAÑO MD Ot E78.2 MIXED HYPERLIPIDEMIA 10/02/2017 TOI MONTAÑO MD Ot I10 ESSENTIAL (PRIMARY) HYPERTENSION 10/02/2017 TOI MONTAÑO MD Ot I25.10 ATHSCL HEART DISEASE OF [place] CORONARY 10/02/2017 TOI MONTAÑO MD Ot I49.3 VENTRICULAR PREMATURE DEPOLARIZATION 10/02/2017 TOI MONTAÑO MD Ot I73.9 PERIPHERAL VASCULAR DISEASE, UNSPECIFIED 10/02/2017 TOI MONTAÑO MD Ot J43.9 EMPHYSEMA, UNSPECIFIED 10/02/2017 TOI MONTAÑO MD Ot Z79.899 OTHER SHELTER (CURRENT) DRUG THERAPY 10/02/2017 TOI MONTAÑO MD Ot Z87.891 PERSONAL HISTORY OF NICOTINE DEPENDENCE 10/02/2017 Ot 496 10/02/2017 Ot 515 10/02/2017 Ot V45.81 10/02/2017 BENJY REYES, JUAN FRANCISCO [place] Ot I73.9 PERIPHERAL VASCULAR DISEASE, UNSPECIFIED 10/02/2017 THERESA ISRAEL DO Ot R91.8 OTHER NONSPECIFIC ABNORMAL FINDING OF [place] 10/02/2017 REBECCA CARRERO DO Ot I25.10 ATHSCL HEART DISEASE OF [place] CORONARY 10/02/2017 REBECCA CARRERO DO Ot I48.91 UNSPECIFIED ATRIAL FIBRILLATION 10/02/2017 REBECCA CARRERO DO Ot J44.9 CHRONIC OBSTRUCTIVE PULMONARY DISEASE, U 10/02/2017 REBECCA CARRERO DO Ot R06.02 SHORTNESS OF BREATH 10/02/2017 TOI MONTAÑO MD Ot E78.2 MIXED HYPERLIPIDEMIA 10/02/2017 TOI MONTAÑO MD Ot I10 ESSENTIAL (PRIMARY) HYPERTENSION 10/02/2017 TOI MONTAÑO MD Ot I25.10 ATHSCL HEART DISEASE OF [place] CORONARY 10/02/2017 TOI MONTAÑO MD Ot I49.3 VENTRICULAR PREMATURE DEPOLARIZATION 10/02/2017 TOI MONTAÑO MD Ot I70.202 UNSP ATHSCL [place] [facility] 10/02/2017 TOI MONTAÑO MD Ot J43.9 EMPHYSEMA, UNSPECIFIED 10/02/2017 TOI MONTAÑO MD Ot Z79.899 OTHER YOKER MACHINE OPERATOR (CURRENT) DRUG THERAPY 10/02/2017 TOI MONTAÑO MD Ot Z87.891 PERSONAL HISTORY OF NICOTINE DEPENDENCE 10/05/2017 TOI MONTAÑO MD Ot E78.2 MIXED HYPERLIPIDEMIA 10/05/2017 TOI MONTAÑO MD Ot I10 ESSENTIAL (PRIMARY) HYPERTENSION 10/05/2017 TOI MONTAÑO MD Ot I25.10 ATHSCL HEART DISEASE OF [place] CORONARY 10/05/2017 TOI MONTAÑO MD Ot I49.3 VENTRICULAR PREMATURE DEPOLARIZATION 10/05/2017 TOI MONTAÑO MD Ot I70.202 UNSP ATHSCL [place] [facility] OF [facility] 10/05/2017 TOI MONTAÑO MD Ot J43.9 EMPHYSEMA, UNSPECIFIED 10/05/2017 TOI MONTAÑO MD Ot Z79.899 OTHER YOKER MACHINE OPERATOR (CURRENT) DRUG THERAPY 10/05/2017 TOI MONTAÑO MD Ot Z87.891 PERSONAL HISTORY OF NICOTINE DEPENDENCE 11/14/2017 THERESA ISRAEL DO Ot R91.8 OTHER NONSPECIFIC ABNORMAL FINDING OF [place] 11/14/2017 Ot R91.8 OTHER NONSPECIFIC ABNORMAL FINDING OF [place] 11/14/2017 REBECCA CARRERO DO Ot I25.10 ATHSCL HEART DISEASE OF [place] CORONARY 11/14/2017 REBECCA CARRERO DO Ot I48.91 UNSPECIFIED ATRIAL FIBRILLATION 11/14/2017 REBECCA CARRERO DO Ot J44.9 CHRONIC OBSTRUCTIVE PULMONARY DISEASE, U 11/14/2017 REBECCA CARRERO DO Ot R06.02 SHORTNESS OF BREATH 11/14/2017 BENJY REYES, JUAN FRANCISCO [place] Ot I73.9 PERIPHERAL VASCULAR DISEASE, UNSPECIFIED 11/14/2017 REBECCA CARRERO DO Ot I25.10 ATHSCL HEART DISEASE OF [place] CORONARY 11/14/2017 REBECCA CARRERO DO Ot I48.91 UNSPECIFIED ATRIAL FIBRILLATION 11/14/2017 REBECCA CARRERO DO, Ot J44.9 CHRONIC OBSTRUCTIVE PULMONARY DISEASE, U 11/14/2017 REBECCA CARRERO DO Ot R06.02 SHORTNESS OF BREATH 11/15/2017 TOI MONTAÑO MD Ot E78.5 HYPERLIPIDEMIA, UNSPECIFIED 11/15/2017 TOI MONTAÑO MD Ot I11.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 11/15/2017 TOI MONTAÑO MD Ot I25.10 ATHSCL HEART DISEASE OF [place] CORONARY 11/15/2017 TOI MONTAÑO MD Ot I25.2 OLD MYOCARDIAL INFARCTION 11/15/2017 TOI MONTAÑO MD Ot I49.3 VENTRICULAR PREMATURE DEPOLARIZATION 11/15/2017 TOI MONTAÑO MD Ot I50.20 UNSPECIFIED SYSTOLIC (CONGESTIVE) HEART 11/15/2017 TOI MONTAÑO MD Ot 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 11/15/2017 TOI MONTAÑO MD Ot J44.9 CHRONIC OBSTRUCTIVE PULMONARY DISEASE, U 11/15/2017 TOI MONTAÑO MD Ot Z79.899 OTHER 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 MACHINE OPERATOR (CURRENT) DRUG THERAPY 11/15/2017 TOI MONTAÑO MD Ot Z87.891 PERSONAL HISTORY OF NICOTINE DEPENDENCE 11/15/2017 TOI MONTAÑO MD Ot E78.5 HYPERLIPIDEMIA, UNSPECIFIED 11/15/2017 TOI MONTAÑO MD Ot I11.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 11/15/2017 OTI MONTAÑO MD Ot I25.10 ATHSCL HEART DISEASE OF [place] CORONARY 11/15/2017 TOI MONTAÑO MD Ot I25.2 OLD MYOCARDIAL INFARCTION 11/15/2017 TOI MONTAÑO MD Ot I49.3 VENTRICULAR PREMATURE DEPOLARIZATION 11/15/2017 TOI MONTAÑO MD Ot I50.20 UNSPECIFIED SYSTOLIC (CONGESTIVE) HEART 11/15/2017 TOI MONTAÑO MD Ot 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 11/15/2017 TOI MONTAÑO MD Ot J44.9 CHRONIC OBSTRUCTIVE PULMONARY DISEASE, U 11/15/2017 TOI MONTAÑO MD Ot Z79.899 OTHER SHELTER (CURRENT) DRUG THERAPY 11/15/2017 TOI MONTAÑO MD Ot Z87.891 PERSONAL HISTORY OF NICOTINE DEPENDENCE 11/20/2017 TOI MONTAÑO MD Ot E78.5 HYPERLIPIDEMIA, UNSPECIFIED 11/20/2017 TOI MONTAÑO MD, Ot I11.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 11/20/2017 TOI MONTAÑO MD, Ot I25.10 ATHSCL HEART DISEASE OF [place] CORONARY 11/20/2017 TOI MONTAÑO MD, Ot I25.2 OLD MYOCARDIAL INFARCTION 11/20/2017 TOI MONTAÑO MD, Ot I49.3 VENTRICULAR PREMATURE DEPOLARIZATION 11/20/2017 TOI MONTAÑO MD, Ot I50.20 UNSPECIFIED SYSTOLIC (CONGESTIVE) HEART 11/20/2017 TOI MONTAÑO MD, Ot 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 11/20/2017 TOI MONTAÑO MD, Ot J44.9 CHRONIC OBSTRUCTIVE PULMONARY DISEASE, U 11/20/2017 TOI MONTAÑO MD, Ot Z79.899 OTHER SHELTER (CURRENT) DRUG THERAPY 11/20/2017 TOI MONTAÑO MD, Ot Z87.891 PERSONAL HISTORY OF NICOTINE DEPENDENCE 03/28/2018 Ot R91.8 OTHER NONSPECIFIC ABNORMAL FINDING OF [place] Procedures Code Description Performed By Performed On [id number] DILATION OF 1 COR ART WITH DRUG-ELUT INT 08/07/2017 [id number] EXTIRPATION OF MATTER FROM 1 COR ART, PE 08/07/2017 [id number] INSPECTION OF UPPER INTESTINAL TRACT, EN 08/07/2017 [id number] MEASURE OF CARDIAC SAMPL PRESSURE, L H 08/07/2017 [id number] FLUOROSCOPY OF MULT COR ART USING L OSM 08/07/2017 [id number] FLUOROSCOPY OF LEFT HEART USING LOW OSMO 08/07/2017 [id number] FLUOROSCOPY OF SINGLE CORONARY ARTERY US 08/08/2017 [...] 03:20 FRESH FROZEN PLASMA TRANSFUSED 08/07/17 0643 NR RED CELLS LEUKO REDUCED AS1 - 08/07/17 03:20 RED CELLS LEUKO REDUCED AS1 TRANSFUSED 08/07/17 0505 NR Blood type T Indirect antibody screen panel - 08/07/17 03:20 ABO+Rh group BP NRG Transfusion band number [id number] NR Blood group antibody screen NEGATIVE NR [...] culture - 08/22/17 08:45 Bacterial urine culture [id number] NRG COLONY COUNT 10,000/ML - 100,000/ML NRG FTX;REPORTABLE SENSITIVITY NOT USUALLY PERFORMED FOR NRG URINE CULTURE RESULTS PLUS NRG FREE TEXT ENTRY 2 THIS ORGANISM [facility] Methicillin resistant Staphylococcus aureus (MRSA) screening culture - 08:45 Methicillin resistant Staphylococcus aureus (MRSA) screening culture NEG NR Automated blood complete blood count (hemogram) panel [...] plasma calcium measurement (mass/volume) 8.5 mg/dL 8.5-10.1 Complete urinalysis with reflex to culture - 11/14/17 08:47 Urine color determination YELLOW NRG Urine clarity determination CLEAR NRG Urine pH measurement by test strip 6 5-9 Specific gravity of urine by test strip 1.015 1.016- 1.022 Urine protein assay by test strip, semi-quantitative NEGATIVE NEGATIVE Urine glucose detection by automated test strip NEGATIVE NEGATIVE Erythrocytes detection in urine sediment by light microscopy NEGATIVE NEGATIVE Urine ketones detection by automated test strip NEGATIVE NEGATIVE Urine nitrite detection by test strip NEGATIVE NEGATIVE Urine total bilirubin detection by test strip NEGATIVE NEGATIVE Urine urobilinogen measurement by automated test strip (mass/volume) NORMAL NORMAL Urine leukocyte esterase detection by dipstick NEGATIVE NEGATIVE Automated urine sediment erythrocyte count by microscopy (number/high power field) RARE NRG Automated urine sediment leukocyte count by microscopy (number/high power field ) NONE NRG Bacteria detection in urine sediment by light microscopy TRACE NRG Squamous epithelial cells detection in urine sediment by light microscopy 2-5 NRG Crystals detection in urine sediment by light microscopy NONE NRG Casts detection in urine sediment by light microscopy NONE NRG Mucus detection in urine sediment by light microscopy NEGATIVE NRG Complete urinalysis with reflex to culture NO NRG Automated blood complete blood count (hemogram) panel - 11/14/17 08:56 Blood leukocytes automated count (number/volume) 8.7 10*3/uL 4.3-11.0 Blood erythrocytes automated count (number/volume) 4.51 10*6/uL 4.35-5.85 Venous blood hemoglobin measurement (mass/volume) 13.4 g/dL 11.5-16.0 Blood hematocrit (volume fraction) 41 % 35-52 Automated erythrocyte mean corpuscular volume 91 [foz_us] 80-99 Automated erythrocyte mean corpuscular hemoglobin (mass per erythrocyte) 30 pg 25-34 Automated erythrocyte mean corpuscular hemoglobin concentration measurement ( mass/volume) 33 g/dL 32-36 Automated erythrocyte distribution width ratio 13.8 % 10.0-14.5 Automated blood platelet count (count/volume) 174 10*3/uL 130-400 Automated blood platelet mean volume measurement 11.1 [foz_us] 7.4-10.4 PT panel in platelet poor plasma by coagulation assay - 11/14/17 08:56 Prothrombin time (PT) in platelet poor plasma by coagulation assay 12.5 s 12.2-14.7 INR in platelet poor plasma or blood by coagulation assay 0.9 0.8-1.4 Activated partial thromboplastin time (aPTT) in platelet poor plasma bycoagulation assay - 11/14/17 08:56 Activated partial thromboplastin time (aPTT) in platelet poor plasma bycoagulation assay 26 s 24-35 Comprehensive metabolic panel - 11/14/17 08:56 Serum or plasma sodium measurement (moles/volume) 141 mmol/L 135-145 Serum or plasma potassium measurement (moles/volume) 4.2 mmol/L 3.6-5.0 Serum or plasma chloride measurement (moles/volume) 105 mmol/L 98-107 Carbon dioxide 26 mmol/L 21-32 Serum or plasma anion gap determination (moles/volume) 10 mmol/L 5-14 Serum or plasma urea nitrogen measurement (mass/volume) 25 mg/dL 7-18 Serum or plasma creatinine measurement (mass/volume) 0.94 mg/dL 0.60-1.30 Serum or plasma urea nitrogen/creatinine mass ratio 27 NRG Serum or plasma creatinine measurement with calculation of estimated glomerular filtration rate 58 NRG Serum or plasma glucose measurement (mass/volume) 111 mg/dL 70-105 Serum or plasma calcium measurement (mass/volume) 9.5 mg/dL 8.5-10.1 Serum or plasma total bilirubin measurement (mass/volume) 0.8 mg/dL 0.1-1.0 Serum or plasma alkaline phosphatase measurement (enzymatic activity/volume) 105 U/L 40-136 Serum or plasma aspartate aminotransferase measurement (enzymatic activity/ volume) 23 U/L 5-34 Serum or plasma alanine aminotransferase measurement (enzymatic activity/volume ) 19 U/L 0-55 Serum or plasma protein measurement (mass/volume) 7.9 g/dL 6.4-8.2 Serum or plasma albumin measurement (mass/volume) 4.3 g/dL 3.2-4.5 Methicillin resistant Staphylococcus aureus (MRSA) screening culture - 08:56 Methicillin resistant Staphylococcus aureus (MRSA) screening culture NEG NRG Automated blood complete blood count (hemogram) panel - 11/15/17 03:15 Blood leukocytes automated count (number/volume) 7.6 10*3/uL 4.3-11.0 Blood erythrocytes automated count (number/volume) 3.58 10*6/uL 4.35-5.85 Venous blood hemoglobin measurement (mass/volume) 10.9 g/dL 11.5-16.0 Blood hematocrit (volume fraction) 33 % 35-52 Automated erythrocyte mean corpuscular volume 92 [foz_us] 80-99 Automated erythrocyte mean corpuscular hemoglobin (mass per erythrocyte) 30 pg 25-34 Automated erythrocyte mean corpuscular hemoglobin concentration measurement ( mass/volume) 33 g/dL 32-36 Automated erythrocyte distribution width ratio 13.6 % 10.0-14.5 Automated blood platelet count (count/volume) 151 10*3/uL 130-400 Automated blood platelet mean volume measurement 11.5 [foz_us] 7.4-10.4 Whole blood basic metabolic panel - 11/15/17 03:15 Serum or plasma sodium measurement (moles/volume) 142 mmol/L 135-145 Serum or plasma potassium measurement (moles/volume) 4.0 mmol/L 3.6-5.0 Serum or plasma chloride measurement (moles/volume) 110 mmol/L 98-107 Carbon dioxide 23 mmol/L 21-32 Serum or plasma anion gap determination (moles/volume) 9 mmol/L 5-14 Serum or plasma urea nitrogen measurement (mass/volume) 15 mg/dL 7-18 Serum or plasma creatinine measurement (mass/volume) 0.76 mg/dL 0.60-1.30 Serum or plasma urea nitrogen/creatinine mass ratio 20 NRG Serum or plasma creatinine measurement with calculation of estimated glomerular filtration rate > NRG Serum or plasma glucose measurement (mass/volume) 78 mg/dL 70-105 Serum or plasma calcium measurement (mass/volume) 8.6 mg/dL 8.5-10.1 Complete blood count (CBC) with automated white blood cell (WBC) differential - 04/04/18 10:22 Blood leukocytes automated count (number/volume) 15.0 10*3/uL 4.3-11.0 Blood erythrocytes automated count (number/volume) 3.94 10*6/uL 4.35-5.85 Venous blood hemoglobin measurement (mass/volume) 11.4 g/dL 11.5-16.0 Blood hematocrit (volume fraction) 35 % 35-52 Automated erythrocyte mean corpuscular volume 88 [foz_us] 80-99 Automated erythrocyte mean corpuscular hemoglobin (mass per erythrocyte) 29 pg 25-34 Automated erythrocyte mean corpuscular hemoglobin concentration measurement ( mass/volume) 33 g/dL 32-36 Automated erythrocyte distribution width ratio 15.1 % 10.0-14.5 Automated blood platelet count (count/volume) 165 10*3/uL 130-400 Automated blood platelet mean volume measurement 11.3 [foz_us] 7.4-10.4 Automated blood neutrophils/100 leukocytes 87 % 42-75 Automated blood lymphocytes/100 leukocytes 7 % 12-44 Blood monocytes/100 leukocytes 6 % 0-12 Automated blood eosinophils/100 leukocytes 0 % 0-10 Automated blood basophils/100 leukocytes 0 % 0-10 Blood neutrophils automated count (number/volume) 13.0 10*3 1.8-7.8 Blood lymphocytes automated count (number/volume) 1.0 10*3 1.0-4.0 Blood monocytes automated count (number/volume) 1.0 10*3 0.0-1.0 Automated eosinophil count 0.0 10*3/uL 0.0-0.3 Automated blood basophil count (count/volume) 0.0 10*3/uL 0.0-0.1 Influenza virus A and B antigen detection - 04/04/18 10:22 FLU RESULT NEGATIVE FOR INFLUENZA A AND B ANTIGENS BY [facility] Blood manual differential performed detection - 04/04/18 10:22 Blood monocytes/100 leukocytes 10 % NR Manual blood segmented neutrophils/100 leukocytes 72 % NRG Blood band neutrophils/100 leukocytes 7 % NRG Manual blood lymphocytes/100 leukocytes 11 % NRG Manual eosinophils/100 leukocytes in nose 0 % NRG Manual blood basophils/100 leukocytes 0 % NRG Blood anisocytosis detection by light microscopy SLIGHT NRG Blood ovalocytes detection by light microscopy SLIGHT NRG Encounters ACCT No. Visit Date/Time Discharge Status Pt. Type Provider Facility Loc./Unit Complaint [id number] 11/14/2017 08:24:00 11/15/2017 10:21:00 DIS Outpatient TOI MONTAÑO MD [facility] CATH PVD [id number] 10/10/2017 13:00:00 10/10/2017 23:59:59 CLS Preadmit TOI MONTAÑO MD [facility] CATH PUD [id number] 09/26/2017 06:32:00 09/27/2017 12:15:00 DIS Outpatient TOI MONTAÑO MD [facility] CATH PAD,CHF,HLP [id number] 09/03/2017 08:19:00 09/03/2017 23:59:59 CLS Outpatient REBECCA CARRERO DO [facility] RT COPD [id number] 08/27/2017 09:31:00 08/27/2017 23:59:59 CLS Outpatient REBECCA CARRERO DO [facility] RT COPD [id number] 08/22/2017 07:45:00 08/23/2017 08:35:00 DIS Outpatient TOI MONTAÑO MD [facility] CATH CAD,CHF [id number] 08/20/2017 11:51:00 08/20/2017 23:59:59 CLS Outpatient JUAN FRANCISCO BURLESON MD [facility] RAD PERIPHERAL VASCULAR DISEASE [id number] 08/17/2017 10:14:00 08/17/2017 12:40:00 DIS Outpatient JUAN FRANCISCO BURLESON MD [facility] ENDO HEMATEMESIS [id number] 08/14/2017 11:32:00 08/14/2017 23:59:59 CLS Preadmit REBECCA CARRERO DO [facility] SLEEP COPD [id number] 08/10/2017 08:35:00 08/11/2017 08:59:00 DIS Inpatient GERARDO REYES, FRANNY Sheffield [facility] ICU ACUTE DECOMPENSATED HEART FAILURE [id number] 08/07/2017 02:37:00 08/09/2017 10:30:00 DIS Inpatient TOI MONTAÑO MD [facility] ICU ACUTE NC [id number] 09/13/2015 09:11:00 09/13/2015 23:59:59 CLS Outpatient THERESA ISRAEL DO [facility] RAD F/U LUNG INFLITRATE [id number] 04/13/2015 10:37:00 04/13/2015 23:59:59 CLS Preadmit HTERESA ISRAEL DO [facility] REHAB [id number] 04/05/2015 18:45:00 04/06/2015 08:41:00 DIS Inpatient THERESA ISRAEL DO [facility] 4TH FEVER,HYPOTENSION,L ARM PAIN [id number] 02/20/2015 01:30:00 02/22/2015 14:30:00 DIS Inpatient THERESA ISRAEL DO [facility] SURGICAL LEFT BASILAR PNEUMONIA [id number] 11/08/2013 11:58:00 11/10/2013 12:05:00 DIS Inpatient OCTAVIO CUNNINGHAM DO [facility] 4TH PNEUMONIA [id number] 04/04/2018 10:34:00 Document Registration [id number] 09/16/2015 07:48:00 Document Registration [id number] 12/17/2010 21:26:00 Document Registration [id number] 12/17/2010 00:15:00 Document Registration [id number] 10/14/2010 21:05:00 Document Registration [id number] 05/29/2006 13:35:00 Document Registration [id number] 02/20/2015 02:03:24 ACT Document Registration
[2018-04-06 10:48] VITALS: BP 120/60
[2018-04-06 11:04] LABS: BASOPHILS % (AUTO) 0 % (0-10); EOSINOPHILS # (AUTO) 0.1 10^3/uL (0.0-0.3); EOSINOPHILS % (AUTO) 1 % (0-10); HEMATOCRIT 34 % (35-52); HEMOGLOBIN 11.2 G/DL (11.5-16.0); LYMPHOCYTES # (AUTO) 1.3 X 10^3 (1.0-4.0); LYMPHOCYTES % (AUTO) 11 % (12-44); MEAN CORPUSCULAR HEMOGLOBIN 29 PG (25-34); MEAN CORPUSCULAR HGB CONC 33 G/DL (32-36); MEAN CORPUSCULAR VOLUME 88 FL (80-99); MEAN PLATELET VOLUME 11.3 FL (7.4-10.4); MONOCYTES % (AUTO) 8 % (0-12); NEUTROPHILS # (AUTO) 9.8 X 10^3 (1.8-7.8); NEUTROPHILS % (AUTO) 80 % (42-75); PLATELET COUNT 217 10^3/uL (130-400); RED BLOOD COUNT 3.85 10^6/uL (4.35-5.85); RED CELL DISTRIBUTION WIDTH 15.4 % (10.0-14.5); WHITE BLOOD COUNT 12.2 10^3/uL (4.3-11.0)
--- NOTE | 2018-04-06 11:05 | ED General ---
General Chief Complaint: Chest Pain Stated Complaint: PNEUMONIA, TENDERNESS/PAIN IN CHEST Source of Information: Patient Exam Limitations: No Limitations History of Present Illness Date Seen by Provider: Apr 06, 2018 Time Seen by Provider: 10:56 Initial Comments Here with report of tenderness in the left anterior chest wall with breathing. Does have history of recent diagnosis of left-sided pneumonia and started Levaquin on night. Reports that she is short of breath with activity. Does have history of COPD and is on breathing treatments as well as Advair. Mild fever today. Timing/Duration: 3-4 Days Severity: Moderate Associated Systoms: Chest Pain, Cough, Fever/Chills; No Nausea/Vomiting; Shortness of Air; No Weakness Allergies and Home Medications Allergies Coded Allergies: No Known Drug Allergies (Unverified , 11/02/09) Home Medications Aspirin 81 Mg Tablet.dr, 81 MG PO DAILY, (Reported) Atorvastatin Calcium 80 Mg Tablet, 80 MG PO HS, (Reported) Cholecalciferol (Vitamin D3) 2,000 Unit Capsule, 2,000 UNIT PO DAILY, (Reported) Clopidogrel Bisulfate 75 Mg Tablet, 75 MG PO DAILY, (Reported) Furosemide 20 Mg Tablet, 20 MG PO DAILY, (Reported) Ipratropium/Albuterol Sulfate 3 Ml Ampul.neb, 3 ML IH BID PRN for SHORTNESS OF BREATH, (Reported) Metoprolol Tartrate 50 Mg Tablet, 50 MG PO BID, (Reported) Pantoprazole Sodium 40 Mg Tablet.dr, 40 MG PO DAILY, (Reported) Prednisone 20 Mg Tab, 40 MG PO DAILY Prescribed by: KELSEY TALBOT on 04/06/18 1423 Patient Home Medication List Home Medication List Reviewed: Yes Review of Systems Review of Systems Constitutional: see HPI; No chills; fever; No weakness EENTM: no symptoms reported Respiratory: see HPI, cough Cardiovascular: chest pain; No edema Gastrointestinal: No abdominal pain, No nausea, No vomiting Genitourinary: no symptoms reported Musculoskeletal: no symptoms reported Skin: no symptoms reported All Other Systems Reviewed Negative Unless Noted: Yes Past Kgqwzbd-Vfgedv-Iobski Hx Past Med/Social Hx: Reviewed Nursing Past Med/Soc Hx Patient Social History Alcohol Use: Denies Use Recreational Drug Use: No Smoking Status: Former Smoker Type Used: Cigarettes Former Smoker, Quit: November 15, 2003 2nd Hand Smoke Exposure: No Recent Foreign Travel: No Contact w/Someone Who Travel: No Recent Hopitalizations: Yes (STEMI 08/03/17) Immunizations Up To Date Tetanus Booster (TDap): More than 5yrs PED Vaccines UTD: Yes Date of Pneumonia Vaccine: Feb 20, 2015 Date of Influenza Vaccine: Mar 20, 2017 Seasonal Allergies Seasonal Allergies: No Past Medical History Surgeries: Yes (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) Adenoidectomy, Appendectomy, Section, Coronary Stent, Gallbladder, Tonsillectomy Respiratory: Yes Asthma, Pneumonia, Emphysema Currently Using CPAP: No Currently Using BIPAP: No Cardiac: Yes (tachycardia, pulmonary hypertension, cardiac tumor status post resection) Coronary Artery Disease, Heart Attack, High Cholesterol, Hypertension Neurological: No Reproductive Disorders: No Genitourinary: No Gastrointestinal: Yes (GI bleed with last hospitalization Aug 03) Gastrointestinal Bleed, Ulcer Musculoskeletal: Yes ([place] Spotted Fever) Arthritis Endocrine: No HEENT: No Cancer: No Psychosocial: No Integumentary: No Blood Disorders: Yes (GI bleed with transfusions Jul 2017) Adverse Reaction/Blood Tranf: No Family Medical History Reviewed Nursing Family Hx Cancer G8 BROTHER Colon cancer G8 BROTHER G8 SISTER Family history: Alzheimer's disease 19 FATHER G8 BROTHER G8 SISTER Family history: Diabetes mellitus 19 MOTHER G8 BROTHER G8 SISTER Heart disease 19 MOTHER Hypertension 19 FATHER 19 MOTHER G8 BROTHER G8 SISTER Heart Disease, Cancer, Diabetes, Psychiatric Problems Physical Exam-Suspected Sepsis Physical Exam Vital Signs Vital Signs - First Documented Capillary Refill : Less Than 3 Seconds Height, Weight, BMI Height: 5'3.00" Weight: 134lbs. 0.0oz. 60.875946zs; 23.7 BMI Method:Stated General Appearance: No Apparent Distress, WD/WN HEENT: PERRL/EOMI, Pharynx Normal Neck: Non Tender, Supple Respiratory: Accessory Muscle Use, Decreased Breath Sounds, Expiration, Wheezing Cardiovascular: Regular Rate, Rhythm, No Murmur Gastrointestinal: Non Tender, Soft Back: Normal Inspection, No CVA Tenderness, No Vertebral Tenderness Extremity: Normal Inspection, Normal Range of Motion Neurologic/Psychiatric: Alert, Oriented x3 Skin: normal color, warm/dry Focused Exam Lactate Level 04/06/18 10:48: Lactic Acid Level 1.55 Lactic Acid Level Laboratory Tests Test 10/20/18 10:48 Lactic Acid Level 1.55 MMOL/L (0.50-2.00) Progress/Results/Core Measures Suspected Sepsis SIRS Temperature: Pulse: Respiratory Rate: Laboratory Tests 04/06/18 10:48: White Blood Count 12.2H Blood Pressure / Mean: 04/06/18 10:48: Lactic Acid Level 1.55 Laboratory Tests 04/06/18 10:48: Creatinine 0.90, INR Comment 1.2, Platelet Count 217, Total Bilirubin 0.6 Results/Orders Lab Results Laboratory Tests Test 04/06/18 10:48 04/06/18 12:26 04/06/18 13:02 Range/Units White Blood Count 12.2 H 4.3-11.0 10^3/uL Red Blood Count 3.85 L 4.35-5.85 10^6/uL Hemoglobin 11.2 L 11.5-16.0 G/DL Hematocrit 34 L 35-52 % Mean Corpuscular Volume 88 80-99 FL Mean Corpuscular Hemoglobin 29 25-34 PG Mean Corpuscular Hemoglobin Concent 33 32-36 G/DL Red Cell Distribution Width 15.4 H 10.0-14.5 % Platelet Count 217 130-400 10^3/uL Mean Platelet Volume 11.3 H 7.4-10.4 FL Neutrophils (%) (Auto) 80 H 42-75 % Lymphocytes (%) (Auto) 11 L 12-44 % Monocytes (%) (Auto) 8 0-12 % Eosinophils (%) (Auto) 1 0-10 % Basophils (%) (Auto) 0 0-10 % Neutrophils # (Auto) 9.8 H 1.8-7.8 X 10^3 Lymphocytes # (Auto) 1.3 1.0-4.0 X 10^3 Monocytes # (Auto) 1.0 0.0-1.0 X 10^3 Eosinophils # (Auto) 0.1 0.0-0.3 10^3/uL Basophils # (Auto) 0.0 0.0-0.1 10^3/uL Prothrombin Time 15.1 H 12.2-14.7 SEC INR Comment 1.2 0.8-1.4 Activated Partial Thromboplast Time 37 H 24-35 SEC Sodium Level 136 135-145 MMOL/L Potassium Level 3.7 3.6-5.0 MMOL/L Chloride Level 100 98-107 MMOL/L Carbon Dioxide Level 25 21-32 MMOL/L Anion Gap 11 5-14 MMOL/L Blood Urea Nitrogen 11 7-18 MG/DL Creatinine 0.90 0.60-1.30 MG/DL Estimat Glomerular Filtration Rate > 60 BUN/Creatinine Ratio 12 Glucose Level 117 H 70-105 MG/DL Lactic Acid Level 1.55 0.50-2.00 MMOL/L Calcium Level 9.5 8.5-10.1 MG/DL Corrected Calcium 9.7 8.5-10.1 MG/DL Total Bilirubin 0.6 0.1-1.0 MG/DL Aspartate Amino Transf (AST/SGOT) 23 5-34 U/L Alanine Aminotransferase (ALT/SGPT) 17 0-55 U/L Alkaline Phosphatase 101 40-136 U/L Troponin I < 0.30 < 0.30 <0.30 NG/ML Total Protein 7.4 6.4-8.2 GM/DL Albumin 3.7 3.2-4.5 GM/DL Urine Color YELLOW Urine Clarity CLEAR Urine pH 6 5-9 Urine Specific Rowley 1.010 L 1.016-1.022 Urine Protein 1+ H NEGATIVE Urine Glucose (UA) NEGATIVE NEGATIVE Urine Ketones NEGATIVE NEGATIVE Urine Nitrite NEGATIVE NEGATIVE Urine Bilirubin NEGATIVE NEGATIVE Urine Urobilinogen NORMAL NORMAL MG/DL Urine Leukocyte Esterase NEGATIVE NEGATIVE Urine RBC (Auto) 1+ H NEGATIVE Urine RBC RARE /HPF Urine WBC NONE /HPF Urine Squamous Epithelial Cells RARE /HPF Urine Crystals NONE /LPF Urine Bacteria NEGATIVE /HPF Urine Casts NONE /LPF Urine Mucus NEGATIVE /LPF Urine Culture Indicated NO Myoglobin 109.5 H 10.0-92.0 NG/ML My Orders Orders - KELSEY TALBOT MD Cbc With Automated Diff (04/06/18 10:53) Comprehensive Metabolic Panel (04/06/18 10:53) Blood Culture (04/06/18 10:53) Sputum Culture (04/06/18 10:53) Urinalysis (04/06/18 10:53) Urine Culture (04/06/18 10:53) Protime With Inr (04/06/18 10:53) Partial Thromboplastin Time (04/06/18 10:53) Chest 1 View, Ap/Pa Only (04/06/18 10:53) Saline Lock/Iv-Start (04/06/18 10:53) Saline Lock/Iv-Start (04/06/18 10:53) Ekg Tracing (04/06/18 10:53) Troponin I (04/06/18 10:53) Vital Signs Adult Sepsis Patie Q15M (04/06/18 10:53) O2 (04/06/18 10:53) Remove Rings In Anticipation O (04/06/18 10:53) Lactic Acid Analyzer (04/06/18 10:53) Saline Lock/Iv-Start (04/06/18 10:53) Ns Iv 1000 Ml (Sodium Chloride 0.9%) (04/06/18 10:53) Albuterol/Ipra Inhalation Soln (Duoneb I (04/06/18 11:15) Svn Small Volume Nebulizer (04/06/18 11:04) Albuterol/Ipra Inhalation Soln (Duoneb I (04/06/18 11:03) General/Regular (04/06/18 Lunch) Troponin I (04/06/18 12:49) Myoglobin Serum (04/06/18 12:49) Ekg Tracing (04/06/18 12:50) Prednisone Tablet (Deltasone Tablet) (04/06/18 13:00) Medications Given in ED Current Medications Medications Dose Ordered Sig/Berta Route Start Time Stop Time Status Last Admin Dose Admin Prednisone 40 mg ONCE ONCE PO 04/06/18 13:00 04/06/18 13:01 DC 04/06/18 13:41 40 MG Sodium Chloride 1,000 ml @ 0 mls/hr Q0M ONCE IV 04/06/18 10:53 04/06/18 10:55 DC 04/06/18 10:57 0 MLS/HR Vital Signs/I&O 04/06/18 04/06/18 04/06/18 04/06/18 10:48 10:48 10:48 10:48 Temp 99.6 99.6 Pulse 96 96 Resp 22 22 B/P (MAP) 120/60 (80) 120/60 Pulse Ox 95 95 95 O2 Delivery Room Air Room Air Room Air Room Air 04/06/18 04/06/18 10:48 11:04 Temp 99.6 Pulse 96 Resp 22 B/P (MAP) 120/60 (80) Pulse Ox 95 94 O2 Delivery Room Air Room Air Capillary Refill : Less Than 3 Seconds Progress Note : Progress Note Seen and evaluated. IV, labs, EKG, chest x-ray, blood cultures and lactic acid ordered. Duo neb ordered. Monitor patient. 1300: No acute findings thus far. Improved after breathing treatment. Initial set of enzymes negative. Prednisone 40 mg by mouth given. We will repeat enzymes and EKG. Patient has been pain-free throughout visit. If enzymes remain negative, patient will be discharged home and she and the family agree. Chest x-ray is improved over previous. White count is also improved. 1420: Labs reviewed. No significant changes on EKG. Troponin is still negative. She does have mildly elevated myoglobin but I believe this is related to the coughing and breathing staff. Patient has not had chest pain throughout ED stay. She does have history and does need further evaluation. This may be done outpatient at this point. I did discuss with the patient's at length regarding her current condition and concerns. Patient like to go home and I think this is a reasonable option at this point with the understanding that she has to return if there is any return of chest pain. Discharged home with return precautions. Patient verbalize understanding instructions and agreement with plan. She will need to follow-up with Dr. Carcamo this week. I will send a copy of the chart to his office. ECG Initial ECG Impression Date: Apr 06, 2018 Initial ECG Impression Time: 10:48 Initial ECG Rate: 93 Initial ECG Rhythm: Normal Sinus Initial ECG Comparisson: Changed Comment Sinus rhythm with frequent PVCs. Underlying morphology similar to previous but PVCs are new on this rhythm. No evidence of ST elevation [place]. Interpreted by me. Diagnostic Imaging Diagonstic Imaging: Xray Plain Films/CT/US/NM/MRI: chest Comments VIA [facility], [facility]. [place], [place] NAME: ELIZABETH RENAE [facility] REC#: [id number] PT STATUS: REG ER : 1940 PHYSICIAN: KELSEY TALBOT MD ADMIT DATE: 04/06/18/ER Draft Date of Exam:04/06/18 CHEST 1 VIEW, AP/PA ONLY Indication: Cough and congestion. Comparison: 04/04/2018. Discussion: Single portable upright view of the chest was obtained. Stable normal heart size. Median sternotomy is present. Underlying COPD with interstitial scarring and biapical scarring is stable. No definite superimposed focal consolidation identified. No pleural fluid or pneumothorax. Impression: 1. Stable changes of chronic lung disease. Dictated on workstation # [id number] Dict: 04/06/18 1231 Trans: 04/06/18 1233 CVB [id number] Interpreted by: CRISTY MEJIA MD Electronically signed by: Departure Impression Primary Impression: Chest pain Qualified Codes: R07.9 - Chest pain, unspecified Additional Impression: COPD (chronic obstructive pulmonary disease) Qualified Codes: J42 - Unspecified chronic bronchitis Disposition: HOME, SELF-CARE Condition: Improved (ERASED) Departure-Patient Inst. Decision time for Depature: 14:23 Referrals: THERESA FELTON DO (PCP/Family) Primary Care Physician Patient Instructions: Chest Pain (DC), Chronic Obstructive Pulmonary Disease ( COPD), Including Emphysema Add. Discharge Instructions: All discharge instructions reviewed with patient and/or family. Voiced understanding. Continue home medications as previously prescribed. Take other medications as directed. Continue breathing treatments 4 times daily for breathing problems. Follow-up with Dr. Carcamo this week for recheck and further evaluation. Call his office for appointment. You should also follow up with Dr. Felton this week for recheck and further evaluation. Return for worse pain, fever, vomiting , weakness, breathing problems, chest pain or other concerns as needed. Scripts Prednisone (Prednisone) 20 Mg Tab 40 MG PO DAILY, #6 TAB 0 Refills Prov: KELSEY TALBOT MD 04/06/18 Copy Copies To 1: TOI CARCAMO MD Copies To 2: THERESA FELTON TIMOTHY D MD Apr 06, 2018 11:05
[2018-04-06 11:18] LABS: INR 1.2 (0.8-1.4); PROTHROMBIN TIME PATIENT 15.1 SEC (12.2-14.7)
[2018-04-06 11:24] LABS: ALANINE AMINOTRANSFERASE 17 U/L (0-55); ALBUMIN 3.7 GM/DL (3.2-4.5); ALKALINE PHOSPHATASE 101 U/L (40-136); BILIRUBIN,TOTAL 0.6 MG/DL (0.1-1.0); BUN/CREATININE RATIO 12; CALCIUM 9.5 MG/DL (8.5-10.1); CARBON DIOXIDE 25 MMOL/L (21-32); CHLORIDE 100 MMOL/L (98-107); GFR ESTIMATED > 60; GLUCOSE 117 MG/DL (70-105); POTASSIUM 3.7 MMOL/L (3.6-5.0); SODIUM 136 MMOL/L (135-145); TOTAL PROTEIN 7.4 GM/DL (6.4-8.2)
--- NOTE | 2018-04-06 12:34 | Diagnostic Imaging Report ---
Indication: Cough and congestion. Comparison: 04/04/2018. Discussion: Single portable upright view of the chest was obtained. Stable normal heart size. Median sternotomy is present. Underlying COPD with interstitial scarring and biapical scarring is stable. No definite superimposed focal consolidation identified. No pleural fluid or pneumothorax. Impression: 1. Stable changes of chronic lung disease. Dictated by: Dictated on workstation # [id number]
[2018-04-06 12:41] LABS: BILIRUBIN,URINE NEGATIVE (NEGATIVE); CLARITY,URINE CLEAR; COLOR,URINE YELLOW; GLUCOSE, URINE (UA) NEGATIVE (NEGATIVE); KETONES,URINE NEGATIVE (NEGATIVE); LEUKOCYTE ESTERASE ,URINE NEGATIVE (NEGATIVE); NITRITE,URINE NEGATIVE (NEGATIVE); PH,URINE 6 (5-9); PROTEIN,URINE 1+ (NEGATIVE); UROBILINOGEN,URINE NORMAL (NORMAL)
[2018-04-06 12:52] LABS: BACTERIA,URINE NEGATIVE /HPF; RBC,URINE RARE /HPF; SQUAMOUS EPITHELIAL CELL,UR RARE /HPF
[2018-04-06 13:30] LABS: MYOGLOBIN SERUM 109.5 NG/ML (10.0-92.0)
[2018-04-06 14:39] VITALS: BP 107/73
== END | disposition home or self-care (01) ==
LOC: EDUNIT# 10:32 → ER 10:34
DX: R07.89 Other chest pain (principal); J44.9 Chronic obstructive pulmonary disease, unspecified; J43.9 Emphysema, unspecified; I10 Essential (primary) hypertension; I27.0 Primary pulmonary hypertension; I25.10 Atherosclerotic heart disease of native coronary artery without angina pectoris; E78.00 Pure hypercholesterolemia, unspecified; I25.2 Old myocardial infarction; Z80.0 Family history of malignant neoplasm of digestive organs; Z82.49 Family history of ischemic heart disease and other diseases of the circulatory system; Z87.01 Personal history of pneumonia (recurrent); Z79.82 Long term (current) use of aspirin; Z87.19 Personal history of other diseases of the digestive system; Z79.52 Long term (current) use of systemic steroids; Z79.02 Long term (current) use of antithrombotics/antiplatelets; Z87.891 Personal history of nicotine dependence; Z90.89 Acquired absence of other organs; Z98.890 Other specified postprocedural states; Z95.5 Presence of coronary angioplasty implant and graft
CPT/HCPCS: 36415; 71045; 80053; 81000; 83605; 83874; 84484; 85025; 85610; 85730; 87040; 87070; 87088; 87205; 93005; 94640

== ENCOUNTER → 2018-11-07 | Outpatient (CLI) | payer MEDICARE, OTHER ==
[~2018-11-07] MED LIST changes: -NS IV 1000 ML 1,000 ML IV ONE; -RT-ALBUTEROL/IPRATROPIUM 3 ML (DUONEB) VIAL INH ONE; -RT-ALBUTEROL/IPRATROPIUM 3 ML (DUONEB) VIAL ONE; -predniSONE 20 MG TAB PO ONE
--- NOTE | 2018-11-07 17:29 | Diagnostic Imaging Report ---
INDICATION: Pneumonia. EXAMINATION: PA and lateral views of the chest are obtained with comparison made to study of 04/06/2018. FINDINGS: Overall heart size is within normal limits. There is air trapping bilaterally. Prominent interstitial markings are seen throughout the lungs. There may be mild increase in subpleural density in the apical aspects of both lungs. There is no evidence of significant pleural fluid. IMPRESSION: Chronic fibrotic changes in the lungs with mild increase in subpleural density in the apices. This may represent progressive fibrosis. Additional followup study would be useful to document ongoing stability. Dictated by: Dictated on workstation # [id number]
== END ==
LOC: RAD 16:21
PROVIDERS: ATTEND Internal Medicine
DX: J84.10 Pulmonary fibrosis, unspecified (principal); J98.4 Other disorders of lung; J18.9 Pneumonia, unspecified organism
CPT/HCPCS: 71046

== ENCOUNTER → 2018-11-25 | Outpatient (CLI) | payer MEDICARE, OTHER ==
[~2018-11-25] MED LIST changes: +RT-ALBUTEROL SULF 2.5 MG/3 ML PRE-MIX VIAL INH ONE; -TRAZ-189 PO; +TRAZ-222 PO
--- NOTE | 2018-11-25 14:44 | Diagnostic Imaging Report ---
INDICATION: Shortness of breath. EXAMINATION: PA and lateral chest. FINDINGS: There are postop changes from median sternotomy. The heart size and pulmonary vascularity are normal. The lungs are clear. There are no effusions or pneumothoraces. IMPRESSION: No acute abnormalities in the chest. Dictated by: Dictated on workstation # [id number]
== END ==
LOC: RAD 12:07
PROVIDERS: ATTEND Nurse Practitioner Family
DX: J44.9 Chronic obstructive pulmonary disease, unspecified (principal)
CPT/HCPCS: 71046; 94060; 94726; 94729

== ENCOUNTER → 2018-12-20 | Outpatient (CLI) | payer MEDICARE, OTHER ==
[~2018-12-20] MED LIST changes: -RT-ALBUTEROL SULF 2.5 MG/3 ML PRE-MIX VIAL INH ONE
--- NOTE | 2018-12-20 09:01 | Diagnostic Imaging Report ---
PROCEDURE: CT chest without contrast. TECHNIQUE: Multiple contiguous axial images were obtained through the chest without the use of intravenous contrast. Auto Exposure Controls were utilized during the CT exam to meet ALARA standards for radiation dose reduction. INDICATION: Followup pneumonia. COMPARISON: Chest radiograph dated 11/25/[address] chest dated 09/16/2015 FINDINGS: Evaluation of lung che demonstrates partially calcified pleural plaque within both lung apices. There is otherwise no focal consolidation, large effusion, nor pneumothorax on either side. Within the subpleural margins of the lateral segment of right middle lobe is a 5 mm micronodular density (image 30, series 2). This does appear to be new when compared to 09/16/2015. Small micronodular density is also noted within the anterior inferior margins of the right lower lobe that measures 4 mm (image 39, series 2). This, however, is stable compared to prior exam. Cardiomediastinal structures show normal heart size. There is significant calcified aortic and coronary atherosclerosis. No large pericardial effusion is identified. No pathologically enlarged or morphologically abnormal adenopathy is seen within the mediastinum, lottie, nor axilla. Osseous structures show no acute abnormalities. Included portions of the upper abdomen show no acute abnormalities. IMPRESSION: 1. New punctate micronodule within the right middle lobe. Please see below for followup recommendations. 2. No other acute cardiopulmonary process. 3. Significant calcified aortic and coronary atherosclerosis. Dictated by: Dictated on workstation # [id number]
== END ==
LOC: RAD 07:54
PROVIDERS: ATTEND Internal Medicine
DX: J18.9 Pneumonia, unspecified organism (principal); I70.0 Atherosclerosis of aorta; I25.10 Atherosclerotic heart disease of native coronary artery without angina pectoris; R91.1 Solitary pulmonary nodule
CPT/HCPCS: 71250

== ENCOUNTER 2019-02-16 15:49 | Inpatient (IN) | payer MEDICARE, OTHER ==
[~2019-02-16] VITALS: Ht 160 cm; Wt 60.4 kg
[~2019-02-16 15:49] MED LIST changes: -CYAN500T2 PO; +CYAN500T62 PO
[2019-02-16 16:19] LABS: BILIRUBIN,URINE NEGATIVE (NEGATIVE); CLARITY,URINE CLEAR; COLOR,URINE YELLOW; GLUCOSE, URINE (UA) NEGATIVE (NEGATIVE); KETONES,URINE 1+ (NEGATIVE); LEUKOCYTE ESTERASE ,URINE 1+ (NEGATIVE); NITRITE,URINE NEGATIVE (NEGATIVE); PH,URINE 6 (5-9); PROTEIN,URINE 2+ (NEGATIVE); UROBILINOGEN,URINE 1 MG/DL (NORMAL)
[2019-02-16 16:28] LABS: BACTERIA,URINE NEGATIVE /HPF; RBC,URINE 0-2 /HPF; WBC,URINE RARE /HPF
[2019-02-16] MEDS ORDERED: NS IV 500 ML 500 ML IV ONE (16:29)
[2019-02-16] MEDS ORDERED: cefTRIAXone FOR IV USE 1,000 MG in WATER (STERILE) FOR INJECTION 10 ML IV ONE (16:30)
[2019-02-16] MEDS ORDERED: ONDANSETRON 4 MG/2 ML (SDV) Z0FRAN IV PRN ×2 (16:30→20:30)
[2019-02-16] MEDS ORDERED: ACETAMINOPHEN 500 MG TAB (TYLENOL) PO PRN (16:30)
[2019-02-16 16:41] LABS: INR 1.1 (0.8-1.4); PROTHROMBIN TIME PATIENT 14.4 SEC (12.2-14.7)
[2019-02-16 16:42] LABS: BASOPHILS % (AUTO) 0 % (0-10); EOSINOPHILS # (AUTO) 0.1 10^3/uL (0.0-0.3); EOSINOPHILS % (AUTO) 1 % (0-10); HEMATOCRIT 36 % (35-52); HEMOGLOBIN 11.7 G/DL (11.5-16.0); LYMPHOCYTES # (AUTO) 1.6 X 10^3 (1.0-4.0); LYMPHOCYTES % (AUTO) 13 % (12-44); MEAN CORPUSCULAR HEMOGLOBIN 29 PG (25-34); MEAN CORPUSCULAR HGB CONC 33 G/DL (32-36); MEAN CORPUSCULAR VOLUME 88 FL (80-99); MEAN PLATELET VOLUME 12.1 FL (7.4-10.4); MONOCYTES # (AUTO) 0.9 X 10^3 (0.0-1.0); MONOCYTES % (AUTO) 7 % (0-12); NEUTROPHILS # (AUTO) 10.1 X 10^3 (1.8-7.8); NEUTROPHILS % (AUTO) 79 % (42-75); PLATELET COUNT 182 10^3/uL (130-400); RED CELL DISTRIBUTION WIDTH 14.8 % (10.0-14.5); WHITE BLOOD COUNT 12.7 10^3/uL (4.3-11.0)
[2019-02-16] MEDS ORDERED: RT-ALBUTEROL/IPRATROPIUM 3 ML (DUONEB) VIAL INH ONE (16:45)
[2019-02-16 16:50] LABS: ALBUMIN 3.8 GM/DL (3.2-4.5); BILIRUBIN,TOTAL 0.9 MG/DL (0.1-1.0); CALCIUM 9.2 MG/DL (8.5-10.1); CREATININE SERUM 0.91 MG/DL (0.60-1.30); POTASSIUM 3.3 MMOL/L (3.6-5.0); TOTAL PROTEIN 7.5 GM/DL (6.4-8.2)
[2019-02-16] MEDS: NS IV 1000 ML 1,000 ML IV SCH ×2 (17:00→17:24)
--- NOTE | 2019-02-16 17:06 | Diagnostic Imaging Report ---
INDICATION: Intermittent fever for one week. FINDINGS: PA and lateral chest shows the heart size and vascularity to be normal. There is obstructive airway disease with no mass or alveolar infiltrate seen. There is mild peribronchial thickening. There is no pleural effusion. IMPRESSION: COPD. There is mild peribronchial thickening which is more prominent compared to the study from 11/25/2018. Dictated by: Dictated on workstation # [id number]
--- NOTE | 2019-02-16 17:16 | ED General ---
General Chief Complaint: - Urinary Stated Complaint: BLADDER INCONTINENCE/FEVER/WEAKNESS Nursing Triage Note: PT AMB TO RM 10 WITH COMPLAINT OF URINARY INCONTINENCE. STATES SHE WAS DIAGNOSED WITH A UTI A WEEK AGO BY DR FELTON. STATES SYMPTOMS ARE NOT IMPROVING. Nursing Sepsis Screen: No Definite Risk Source of Information: Patient, Family Exam Limitations: No Limitations History of Present Illness Date Seen by Provider: Feb 16, 2019 Time Seen by Provider: 16:00 Initial Comments Patient arrives the ER with family by private conveyance with chief complaint of not feeling well having fever, dysuria and incontinence as well as cough. She has a history of COPD. She is having incontinence for the past 4 weeks. 2 weeks ago she went to her primary care doctor, Dr. Felton and was put on an anti biotic which she does not know which one. She completed about a week ago and said her symptoms did not improve. Today she has mild increased work of breathing. She uses breathing treatments through nebulizer several times a day. She's not been on steroids recently. She has some intermittent nausea especially when she coughs but is not having any nausea presently. No known sick contacts. Allergies and Home Medications Allergies Coded Allergies: No Known Drug Allergies (Unverified , 11/02/09) Home Medications Aspirin 81 Mg Tablet., 81 MG PO DAILY, (Reported) Atorvastatin Calcium 80 Mg Tablet, 80 MG PO HS, (Reported) Cholecalciferol (Vitamin D3) 2,000 Unit Capsule, 2,000 UNIT PO DAILY, (Reported) Clopidogrel Bisulfate 75 Mg Tablet, 75 MG PO DAILY, (Reported) Furosemide 20 Mg Tablet, 20 MG PO DAILY, (Reported) Ipratropium/Albuterol Sulfate 3 Ml Ampul.neb, 3 ML IH BID PRN for SHORTNESS OF BREATH, (Reported) Metoprolol Tartrate 50 Mg Tablet, 50 MG PO BID, (Reported) Pantoprazole Sodium 40 Mg Tablet.dr, 40 MG PO DAILY, (Reported) Prednisone 20 Mg Tab, 40 MG PO DAILY Prescribed by: KELSEY TALBOT on 04/06/18 4630 Patient Home Medication List Home Medication List Reviewed: Yes Review of Systems Review of Systems Constitutional: chills; No diaphoresis; fever, malaise EENTM: No ear discharge, No hearing loss, No ear pain Respiratory: cough; No phlegm; short of breath, wheezing Cardiovascular: No chest pain, No edema, No Hx of Intervention Gastrointestinal: No abdominal pain; nausea; No vomiting Genitourinary: No discharge, No dysuria; incontinence Musculoskeletal: No back pain, No joint pain Past Spwgmbd-Tpecrw-Pnbgyo Hx Patient Social History Alcohol Use: Denies Use Recreational Drug Use: No Smoking Status: Former Smoker Type Used: Cigarettes Former Smoker, Quit: November 15, 2003 2nd Hand Smoke Exposure: No Recent Foreign Travel: No Contact w/Someone Who Travel: No Recent Infectious Disease Expo: No Recent Hopitalizations: No Physical Abuse: No Sexual Abuse: No Mistreated: No Fear: No Immunizations Up To Date Tetanus Booster (TDap): More than 5yrs PED Vaccines UTD: Yes Date of Pneumonia Vaccine: Feb 20, 2015 Date of Influenza Vaccine: Mar 20, 2017 Seasonal Allergies Seasonal Allergies: No Past Medical History Surgeries: Yes (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) Adenoidectomy, Appendectomy, Section, Coronary Stent, Gallbladder, Tonsillectomy Respiratory: Yes Asthma, Pneumonia, Emphysema Currently Using CPAP: No Currently Using BIPAP: No Cardiac: Yes (tachycardia, pulmonary hypertension, cardiac tumor status post resection) Coronary Artery Disease, Heart Attack, High Cholesterol, Hypertension Neurological: No Reproductive Disorders: No Genitourinary: No Gastrointestinal: Yes (GI bleed with last hospitalization Aug 03-) Gastrointestinal Bleed, Ulcer Musculoskeletal: Yes ([place] Spotted Fever) Arthritis Endocrine: No HEENT: No Cancer: No Psychosocial: No Integumentary: No Blood Disorders: Yes (GI bleed with transfusions Jul 2017) Adverse Reaction/Blood Tranf: No Family Medical History Cancer G8 BROTHER Colon cancer G8 BROTHER G8 SISTER Family history: Alzheimer's disease 19 FATHER G8 BROTHER G8 SISTER Family history: Diabetes mellitus 19 MOTHER G8 BROTHER G8 SISTER Heart disease 19 MOTHER Hypertension 19 FATHER 19 MOTHER G8 BROTHER G8 SISTER Heart Disease, Cancer, Diabetes, Psychiatric Problems Physical Exam-Suspected Sepsis Physical Exam Vital Signs Vital Signs - First Documented 02/16/19 02/16/19 16:05 17:09 Temp 101.1 Pulse 105 Resp 20 B/P (MAP) 114/96 (102) Pulse Ox 92 O2 Delivery Room Air O2 Flow Rate 2.00 Capillary Refill : Less Than 3 Seconds Blood Pressure Mean: 102 Height, Weight, BMI Height: 5'3.00" Weight: 127lbs. 0.0oz. 57.272626mt; 23.7 BMI Method:Stated General Appearance: No Apparent Distress, WD/WN Eyes: Bilateral Eye Normal Inspection, Bilateral Eye PERRL, Bilateral Eye EOMI HEENT: PERRL/EOMI, TMs Normal, Normal ENT Inspection, Pharynx Normal; No Moist Mucous Membranes Neck: Full Range of Motion, Normal Inspection, Non Tender Respiratory: Accessory Muscle Use, Decreased Breath Sounds, Rales (few bi- basilar), Respiratory Distress (mild), Wheezing Cardiovascular: Regular Rate, Rhythm, No Edema, Normal Peripheral Pulses Gastrointestinal: Normal Bowel Sounds, Soft, Tenderness (mild suprapubic) Extremity: Normal Capillary Refill, Normal Inspection, Normal Range of Motion, Non Tender, No Pedal Edema Neurologic/Psychiatric: Alert, Oriented x3, No Motor/Sensory Deficits, Normal Mood/Affect Skin: normal color, warm/dry Focused Exam Sepsis Stage: Sepsis Possible Source: Pulmonary Lactate Level 02/16/19 16:18: Lactic Acid Level 1.71 Time of Focused Exam: 17:55 Respiratory: Lungs Clear, Accessory Muscle Use, Decreased Breath Sounds, Respiratory Distress (mild) Lactic Acid Level Laboratory Tests Test 02/16/19 16:18 Lactic Acid Level 1.71 MMOL/L (0.50-2.00) Progress/Results/Core Measures Suspected Sepsis Recent Fever Within 48 Hours: No Infection Criteria Present: None New/Unexplained Altered Menta: No Sepsis Screen: No Definite Risk SIRS Temperature:101.1 Pulse: 105 Respiratory Rate: 20 Laboratory Tests 02/16/19 16:18: White Blood Count 12.7H Blood Pressure 114 /96 Mean: 102 02/16/19 16:18: Lactic Acid Level 1.71 Laboratory Tests 02/16/19 16:18: Creatinine 0.91, INR Comment 1.1, Platelet Count 182, Total Bilirubin 0.9 Results/Orders Lab Results Laboratory Tests Test 02/16/19 16:10 02/16/19 16:18 02/16/19 17:00 Range/Units Urine Color YELLOW Urine Clarity CLEAR Urine pH 6 5-9 Urine Specific [place] 1.015 L 1.016-1.022 Urine Protein 2+ H NEGATIVE Urine Glucose (UA) NEGATIVE NEGATIVE Urine Ketones 1+ H NEGATIVE Urine Nitrite NEGATIVE NEGATIVE Urine Bilirubin NEGATIVE NEGATIVE Urine Urobilinogen 1 NORMAL MG/DL Urine Leukocyte Esterase 1+ H NEGATIVE Urine RBC (Auto) 2+ H NEGATIVE Urine RBC 0-2 /HPF Urine WBC RARE /HPF Urine Squamous Epithelial Cells 2-5 /HPF Urine Crystals NONE /LPF Urine Bacteria NEGATIVE /HPF Urine Casts NONE /LPF Urine Mucus NEGATIVE /LPF Urine Culture Indicated NO White Blood Count 12.7 H 4.3-11.0 10^3/uL Red Blood Count 4.03 L 4.35-5.85 10^6/uL Hemoglobin 11.7 11.5-16.0 G/DL Hematocrit 36 35-52 % Mean Corpuscular Volume 88 80-99 FL Mean Corpuscular Hemoglobin 29 25-34 PG Mean Corpuscular Hemoglobin Concent 33 32-36 G/DL Red Cell Distribution Width 14.8 H 10.0-14.5 % Platelet Count 182 130-400 10^3/uL Mean Platelet Volume 12.1 H 7.4-10.4 FL Neutrophils (%) (Auto) 79 H 42-75 % Lymphocytes (%) (Auto) 13 12-44 % Monocytes (%) (Auto) 7 0-12 % Eosinophils (%) (Auto) 1 0-10 % Basophils (%) (Auto) 0 0-10 % Neutrophils # (Auto) 10.1 H 1.8-7.8 X 10^3 Lymphocytes # (Auto) 1.6 1.0-4.0 X 10^3 Monocytes # (Auto) 0.9 0.0-1.0 X 10^3 Eosinophils # (Auto) 0.1 0.0-0.3 10^3/uL Basophils # (Auto) 0.0 0.0-0.1 10^3/uL Prothrombin Time 14.4 12.2-14.7 SEC INR Comment 1.1 0.8-1.4 Sodium Level 140 135-145 MMOL/L Potassium Level 3.3 L 3.6-5.0 MMOL/L Chloride Level 100 98-107 MMOL/L Carbon Dioxide Level 26 21-32 MMOL/L Anion Gap 14 5-14 MMOL/L Blood Urea Nitrogen 10 7-18 MG/DL Creatinine 0.91 0.60-1.30 MG/DL Estimat Glomerular Filtration Rate 60 BUN/Creatinine Ratio 11 Glucose Level 137 H 70-105 MG/DL Lactic Acid Level 1.71 0.50-2.00 MMOL/L Calcium Level 9.2 8.5-10.1 MG/DL Corrected Calcium 9.4 8.5-10.1 MG/DL Total Bilirubin 0.9 0.1-1.0 MG/DL Aspartate Amino Transf (AST/SGOT) 21 5-34 U/L Alanine Aminotransferase (ALT/SGPT) 16 0-55 U/L Alkaline Phosphatase 103 40-136 U/L Total Protein 7.5 6.4-8.2 GM/DL Albumin 3.8 3.2-4.5 GM/DL Blood Gas Puncture Site R.RADIAL Blood Gas Patient Temperature 98.6 Arterial Blood pH 7.45 H 7.37-7.43 Arterial Blood Partial Pressure CO2 38 35-45 MMHG Arterial Blood Partial Pressure O2 85 79-93 MMHG Arterial Blood HCO3 26 23-27 MMOL/L Arterial Blood Total CO2 27.3 21.0-31.0 MMOL/L Arterial Blood Oxygen Saturation 97 94-100 % Arterial Blood Base Excess 2.4 -2.5-2.5 MMOL/L Walker Test YES-POS Blood Gas Ventilator Setting NO Blood Gas Inspired Oxygen 2 L. Micro Results Microbiology 02/16/19 Influenza Types A,B Antigen (ZENOBIA) - Final, Complete My Orders Orders - IDA BAILEY Ua Culture If Indicated (02/16/19 16:02) Influenza A And B Antigens (02/16/19 16:26) Urinalysis (02/16/19 16:26) Urine Culture (02/16/19 16:26) Acetaminophen Tablet (Tylenol Tablet) (02/16/19 16:30) Ed Iv/Invasive Line Start (02/16/19 16:26) Ed Iv/Invasive Line Start (02/16/19 16:26) Vital Signs Adult Sepsis Patie Q15M (02/16/19 16:26) O2 (02/16/19 16:26) Remove Rings In Anticipation O (02/16/19 16:26) Ns Iv 1000 Ml (Sodium Chloride 0.9%) (02/16/19 16:26) Ceftriaxone For Iv Use (Rocephin For I (02/16/19 16:30) Ed Iv/Invasive Line Start (02/16/19 16:29) Ns Iv 500 Ml (Sodium Chloride 0.9%) (02/16/19 16:29) Albuterol/Ipra Inhalation Soln (Duoneb I (02/16/19 16:45) Chest Pa/Lat (2 View) (02/16/19 16:38) Svn Small Volume Nebulizer (02/16/19 16:38) Arterial Blood Gas (02/16/19 17:13) Arterial Blood Draw (02/16/19 ) Azithromycin Tablet (Zithromax Tablet) (02/16/19 17:30) Medications Given in ED Current Medications Medications Dose Ordered Sig/Berta Route Start Time Stop Time Status Last Admin Dose Admin Acetaminophen 1,000 mg ONCE PRN PO 02/16/19 16:30 02/16/19 17:24 DC 02/16/19 17:24 1,000 MG Albuterol/ Ipratropium 3 ml ONCE ONCE INH 02/16/19 16:45 02/16/19 16:46 DC 02/16/19 17:00 3 ML Vital Signs/I&O 02/16/19 02/16/19 16:05 17:09 Temp 101.1 Pulse 105 Resp 20 B/P (MAP) 114/96 (102) Pulse Ox 92 95 O2 Delivery Room Air O2 Flow Rate 2.00 Capillary Refill : Less Than 3 Seconds Blood Pressure Mean: 102 Progress Note : Time: 17:55 Progress Note ABG is okay on 2 L of oxygen. She does not use oxygen at baseline. She has hypoxia acute on chronic respiratory failure. She meets sepsis criteria but her lactate was normal. I suspect strongly she has a pneumonia despite not having an infiltrate on the x-ray. We'll talk to her and all she is reluctant stay in the hospital she will stay. She says that she did not like how she had to call and order her own meals and that's why she didn't want to stay. We will ask her nursing staff to all her meal in for her. Diagnostic Imaging Diagonstic Imaging: Xray Plain Films/CT/US/NM/MRI: chest (2v) Comments NAME: ELIZABETH RENAE [facility] REC#: [id number] PHYSICIAN: IDA BAILEY MD CC: ASH CHAHAL MD; IDA BAILEY Page 1 of 1 RADIOLOGY REPORT [facility]. [place], [place] CC: ASH CHAHAL MD; IDA BAILEY Page 1 of 1 RADIOLOGY REPORT NAME: ELIZABETH RENAE [facility] REC#: [id number] PT STATUS: REG ER : 1940 PHYSICIAN: IDA BAILEY MD ADMIT DATE: 02/16/19/ER Signed Date of Exam: 02/16/19 CHEST PA/LAT (2 VIEW) INDICATION: Intermittent fever for one week. FINDINGS: PA and lateral chest shows the heart size and vascularity to be normal. There is obstructive airway disease with no mass or alveolar infiltrate seen. There is mild peribronchial thickening. There is no pleural effusion. IMPRESSION: COPD. There is mild peribronchial thickening which is more prominent compared to the study from 11/25/2018. Dictated by: Dictated on workstation # [id number] Dict: 02/16/19 1659 Trans: 02/16/19 1713 Interpreted by: ASH CHAHAL MD Electronically signed by: ASH CHAHAL MD 02/16/19 1713 Reviewed: Reviewed by Me Departure Communication (Admissions) Time/Spoke to Admitting Phy: 17:45 Dr. Felix agrees to admit the patient on Rocephin, azithromycin and oxygen. Impression Primary Impression: Pneumonia Qualified Codes: J18.9 - Pneumonia, unspecified organism Additional Impressions: Sepsis Qualified Codes: A41.9 - Sepsis, unspecified organism COPD (chronic obstructive pulmonary disease) Qualified Codes: J44.0 - Chronic obstructive pulmonary disease with acute lower respiratory infection Hypoxia Disposition: ADMITTED INPATIENT Condition: Stable Admissions Decision to Admit Reason: Admit from ER (General) Decision to Admit/Date: Feb 16, 2019 Time/Decision to Admit Time: 17:30 Departure-Patient Inst. Referrals: THERESA FELTON DO (PCP/Family) Primary Care Physician IDA BAILEY Feb 16, 2019 17:16
[2019-02-16 17:18] LABS: ABG PCO2 38 MMHG (35-45); ABG PH 7.45 (7.37-7.43); ABG PO2 85 MMHG (79-93)
[2019-02-16 17:19] LABS: ABG BASE EXCESS 2.4 MMOL/L (-2.5-2.5); ABG OXYGEN SATURATION 97 % (94-100); ABG TCO2 27.3 MMOL/L (21.0-31.0); ALLENS TEST YES-POS; INSPIRED O2 2 L.; PATIENT TEMP 98.6; VENTILATOR NO
[2019-02-16] MEDS ORDERED: AZITHROMYCIN 250 MG TAB (ZITHROMAX) PO ONE (17:30)
[2019-02-16] MEDS ORDERED: ONDANSETRON 4 MG/2 ML (SDV) Z0FRAN ONE (18:04)
[2019-02-16] MEDS ORDERED: ONDANSETRON 4 MG/2 ML (SDV) Z0FRAN IVP ONE (18:30)
--- NOTE | 2019-02-16 18:39 | NUR ---
REPORT REC'D FROM [facility]AL[facility] ASSURANCE COACH. PT HAS NOT ARRIVED TO FLOOR AT THIS TIME.
[2019-02-16 18:55] VITALS: BP 131/62
--- NOTE | 2019-02-16 18:56 | NUR ---
REC'D PER CART FROM ER WITH STAFF AND FAMILY. ORIENTED TO ROOM AND CALL LIGHT. REPORT TO NEXT SHIFT.
[2019-02-16] MEDS ORDERED: IBUPROFEN 600 MG (MOTRIN) TAB PO PRN (20:30)
[2019-02-16] MEDS ORDERED: CATHETER FLUSH 10 ML SYR IV PRN (20:30)
[2019-02-16] MEDS ORDERED: AZITHROMYCIN 500 MG/NS 250 ML IVPB IV ONE ×2 (21:00)
[2019-02-16] MEDS: LACTATED RINGERS 1,000 ML IV SCH (21:25)
[2019-02-16] MEDS: CATHETER FLUSH 10 ML SYR IV SCH (21:26)
[2019-02-16] MEDS: ACETAMINOPHEN 500 MG TAB (TYLENOL) PO PRN (21:30)
[2019-02-16] MEDS ORDERED: RT-ALBUTEROL/IPRATROPIUM 3 ML (DUONEB) VIAL INH PRN (22:00)
[2019-02-17] VITALS (8 sets, daily range): BP systolic 122–159; BP diastolic 58–70
[2019-02-17] MEDS: RT-ALBUTEROL/IPRATROPIUM 3 ML (DUONEB) VIAL INH SCH ×5 (02:49→22:15)
[2019-02-17] MEDS: LACTATED RINGERS 1,000 ML IV SCH ×3 (06:45→23:26)
[2019-02-17] MEDS: CATHETER FLUSH 10 ML SYR IV SCH ×3 (06:45→22:14)
[2019-02-17 06:50] LABS: BASOPHILS % (AUTO) 0 % (0-10); EOSINOPHILS # (AUTO) 0.2 10^3/uL (0.0-0.3); EOSINOPHILS % (AUTO) 2 % (0-10); HEMATOCRIT 31 % (35-52); HEMOGLOBIN 9.8 G/DL (11.5-16.0); LYMPHOCYTES # (AUTO) 1.9 X 10^3 (1.0-4.0); LYMPHOCYTES % (AUTO) 18 % (12-44); MEAN CORPUSCULAR HEMOGLOBIN 29 PG (25-34); MEAN CORPUSCULAR HGB CONC 32 G/DL (32-36); MEAN CORPUSCULAR VOLUME 90 FL (80-99); MEAN PLATELET VOLUME 11.8 FL (7.4-10.4); MONOCYTES % (AUTO) 10 % (0-12); NEUTROPHILS # (AUTO) 7.3 X 10^3 (1.8-7.8); NEUTROPHILS % (AUTO) 70 % (42-75); PLATELET COUNT 159 10^3/uL (130-400); WHITE BLOOD COUNT 10.3 10^3/uL (4.3-11.0)
[2019-02-17 07:06] LABS: BUN/CREATININE RATIO 10; CALCIUM 8.6 MG/DL (8.5-10.1); CARBON DIOXIDE 25 MMOL/L (21-32); CHLORIDE 107 MMOL/L (98-107); CREATININE SERUM 0.84 MG/DL (0.60-1.30); GFR ESTIMATED > 60; GLUCOSE 80 MG/DL (70-105); POTASSIUM 3.5 MMOL/L (3.6-5.0); SODIUM 140 MMOL/L (135-145)
--- NOTE | 2019-02-17 09:58 | Diagnostic Imaging Report ---
INDICATION: Pneumonia COMPARISON: 02/16/2019 TECHNIQUE: Two radiographs of the chest dated 02/17/2019 FINDINGS: Postsurgical changes of median sternotomy. The cardiac silhouette is within normal limits in size. Background chronic obstructive pulmonary disease is again noted with associated pulmonary hyperinflation. However, increasing and developing opacities are noted within the left lung base. This is associated with small left basilar pleural effusion. No pneumothorax. Trace right pleural effusion. Scattered vascular calcifications. Scattered osseous degenerative changes without acute osseous abnormality. IMPRESSION: Developing left basilar infiltrate with associated left pleural effusion. Findings likely relate to developing pneumonia. Background chronic obstructive pulmonary disease. Trace right pleural effusion versus pleural scarring. Dictated by: Dictated on workstation # [id number]
[2019-02-17] MEDS ORDERED: KCL 20 MEQ TAB (K-DUR) PO ONE (11:15)
[2019-02-17] MEDS: ACETAMINOPHEN 500 MG TAB (TYLENOL) PO PRN (12:17)
--- NOTE | 2019-02-17 12:49 | NUR ---
Tylenol given previously for elevated temp of 100.3, temp is now trending down and is 99.9
--- NOTE | 2019-02-17 13:57 | History & Physical-Hospitalist ---
History of Present Illness HPI/Chief Complaint Ban Casillas is a 78-year-old female past medical history of COPD, hypertension, coronary artery disease, who presents with fevers and cough. She denies shortness of breath. She denies chest pain. She denies any nausea, vomiting, abdominal pain. She denies diarrhea and constipation. She did report dysuria and incontinence which is a chronic issue. She has been using her inhalers at home. She says that she was treated with an antibiotic and completed the course about a week ago. She has not been on steroids recently. Source: patient Exam Limitations: no limitations Date Seen 02/17/19 Time Seen by a Provider: 09:45 Attending Physician Ginna Felix MD PCP Edu Felton DO Referring Physician Date of Admission Feb 16, 2019 at 17:45 Home Medications & Allergies Home Medications Reviewed patient Home Medication Reconciliation performed by pharmacy medication reconciliations controls technician and/or nursing. Patients Allergies have been reviewed. Allergies Allergies Coded Allergies No Known Drug Allergies (Unverified11/02/09) Past Kqqibpu-Nsrglu-Mfdial Hx Past Med/Social Hx: Reviewed Nursing Past Med/Soc Hx Patient Social History Alcohol Use: Denies Use Recreational Drug Use: No Smoking Status: Former Smoker Former Smoker, Quit: Jun 18, 2001 Type Used: Cigarettes 2nd Hand Smoke Exposure: No Physical Abuse Screen: No Sexual Abuse: No Recent Foreign Travel: No Contact w/other who traveled: No Recent Hopitalizations: No Recent Infectious Disease Expo: No Immunizations Up To Date Tetanus Booster (TDap): More than 5yrs Pediatric: Yes Date of Pneumonia Vaccine: Feb 20, 2015 Date of Influenza Vaccine: Mar 20, 2017 Seasonal Allergies Seasonal Allergies: No Past Medical History Surgeries: Adenoidectomy, Appendectomy, Section, Coronary Stent, Gallbladder, Tonsillectomy Respiratory: COPD Currently Using CPAP: No Currently Using BIPAP: No Cardiac: Coronary Artery Disease, Heart Attack, High Cholesterol, Hypertension Reproductive: No Sexually Transmitted Disease: No HIV/AIDS: No Female Reproductive Disorders: Denies Gastrointestinal: Gastrointestinal Bleed, Ulcer Musculoskeletal: Arthritis HEENT: Cataract Hearing Impairment: Denies History of Blood Disorders: Yes (GI bleed with transfusions Jul 2017) Adverse Reaction to Blood [place]: No Family History Cancer G8 BROTHER Colon cancer G8 BROTHER G8 SISTER Family history: Alzheimer's disease 19 FATHER G8 BROTHER G8 SISTER Family history: Diabetes mellitus 19 MOTHER G8 BROTHER G8 SISTER Heart disease 19 MOTHER Hypertension 19 FATHER 19 MOTHER G8 BROTHER G8 SISTER Heart Disease, Cancer, Diabetes, Psychiatric Problems Review of Systems Constitutional: see HPI Physical Exam Physical Exam Vital Signs Vital Signs - First Documented 02/16/19 02/16/19 16:05 16:25 Temp 101.1 Pulse 105 Resp 20 B/P (MAP) 114/96 (102) Pulse Ox 92 O2 Delivery Room Air O2 Flow Rate 2.00 Capillary Refill : Less Than 3 Seconds Height, Weight, BMI Height: 5'3.00" Weight: 133lbs. 4.0oz. 60.366212oe; 23.6 BMI Method:Stated General Appearance: No Apparent Distress, WD/WN HEENT: PERRL/EOMI, Pharynx Normal Neck: Normal Inspection, Supple Respiratory: Lungs Clear, Normal Breath Sounds, No Respiratory Distress Cardiovascular: Regular Rate, Rhythm, No Edema, No Murmur Gastrointestinal: Normal Bowel Sounds, Non Tender, Soft Extremity: Normal Inspection, No Pedal Edema Neurologic/Psychiatric: Alert, Oriented x3 Skin: Normal Color, Warm/Dry Lymphatic: No Adenopathy Results Results/Procedures Labs Laboratory Tests 02/16/19 16:18 02/17/19 06:41 Patient resulted labs reviewed. Imaging: Reviewed Imaging Report Assessment/Plan Admission Diagnosis Sepsis due to pneumonia Admission Status: Inpatient Order (span 2 midnights) Reason for Inpatient Admission: Sepsis Pneumonia COPD Hypertension Coronary artery disease Assessment and Plan Sepsis due to pneumonia Febrile with leukocytosis and tachycardia on admission Chest x-ray initially unremarkable, this morning with developing left lower lobe pneumonia Started on ceftriaxone and azithromycin in the emergency room Transition to oral Ceftin ear and azithromycin today Continue MAT protocol Hypertension Continue metoprolol Coronary artery disease Continue aspirin and Plavix COPD Continue MAT protocol Diagnosis/Problems Diagnosis/Problems (1) Sepsis due to pneumonia Status: Acute Clinical Quality Measures DVT/VTE Risk/Contraindication: Risk Factor Score Per Nursin RFS Level Per Nursing on Admit: 4+=Very High HAMMAD ERWIN MD Feb 17, 2019 13:57
[2019-02-17] MEDS ORDERED: CLOPIDOGREL 75 MG (PLAVIX) TABLET PO ONE (14:00)
[2019-02-17] MEDS ORDERED: ASPIRIN E.C. 81 MG (ECOTRIN) TAB PO ONE (14:00)
[2019-02-17] MEDS ORDERED: cefTRIAXone 1,000 MG/SWFI 10 ML IV PUSH IV SCH ×2 (17:00)
[2019-02-17] MEDS ORDERED: ATORVASTATIN 80 MG (LIPITOR) TABLET PO SCH (21:00)
[2019-02-17] MEDS ORDERED: AZITHROMYCIN 250 MG TAB (ZITHROMAX) PO SCH (21:00)
[2019-02-17] MEDS ORDERED: LORazepam 0.5 MG (ATIVAN) TABLET ONE (21:53)
--- NOTE | 2019-02-17 21:55 | NUR ---
DR KENNEDY ORDERED 0.25 ATIVAN PO ONE TIME D/T ANXIETY FROM INCREASED SOB.
[2019-02-17] MEDS: meTOprolol TARTRATE 50 MG (LOPRESSOR) TAB PO SCH (22:02)
[2019-02-17] MEDS: CEFDINIR 300 MG (OMNICEF) CAP PO SCH (22:02)
[2019-02-17] MEDS ORDERED: LORazepam 0.5 MG (ATIVAN) TABLET PO ONE (22:15)
[2019-02-18] MEDS: RT-ALBUTEROL/IPRATROPIUM 3 ML (DUONEB) VIAL INH SCH ×3 (02:01→11:22)
[2019-02-18 04:15] VITALS: BP 154/70
[2019-02-18 05:24] LABS: BASOPHILS % (AUTO) 0 % (0-10); EOSINOPHILS # (AUTO) 0.2 10^3/uL (0.0-0.3); EOSINOPHILS % (AUTO) 2 % (0-10); HEMATOCRIT 29 % (35-52); HEMOGLOBIN 9.4 G/DL (11.5-16.0); LYMPHOCYTES % (AUTO) 20 % (12-44); MEAN CORPUSCULAR HEMOGLOBIN 29 PG (25-34); MEAN CORPUSCULAR HGB CONC 32 G/DL (32-36); MEAN CORPUSCULAR VOLUME 90 FL (80-99); MEAN PLATELET VOLUME 11.8 FL (7.4-10.4); MONOCYTES # (AUTO) 1.1 X 10^3 (0.0-1.0); MONOCYTES % (AUTO) 11 % (0-12); NEUTROPHILS # (AUTO) 6.8 X 10^3 (1.8-7.8); NEUTROPHILS % (AUTO) 67 % (42-75); PLATELET COUNT 178 10^3/uL (130-400); WHITE BLOOD COUNT 10.2 10^3/uL (4.3-11.0)
[2019-02-18 05:41] LABS: BUN/CREATININE RATIO 8; CARBON DIOXIDE 27 MMOL/L (21-32); CHLORIDE 104 MMOL/L (98-107); CREATININE SERUM 0.74 MG/DL (0.60-1.30); GFR ESTIMATED > 60; GLUCOSE 90 MG/DL (70-105); MAGNESIUM 1.6 MG/DL (1.6-2.4); SODIUM 140 MMOL/L (135-145)
[2019-02-18] MEDS: CATHETER FLUSH 10 ML SYR IV SCH (06:01)
[2019-02-18] MEDS: LACTATED RINGERS 1,000 ML IV SCH ×2 (06:07→07:55)
[2019-02-18] MEDS: CEFDINIR 300 MG (OMNICEF) CAP PO SCH (07:55)
[2019-02-18] MEDS: ACETAMINOPHEN 500 MG TAB (TYLENOL) PO PRN (07:56)
[2019-02-18] MEDS: meTOprolol TARTRATE 50 MG (LOPRESSOR) TAB PO SCH (07:57)
[2019-02-18 08:00] VITALS: BP 143/63
[2019-02-18] MEDS ORDERED: AZITHROMYCIN 250 MG TAB (ZITHROMAX) PO SCH (09:00)
[2019-02-18] MEDS ORDERED: CLOPIDOGREL 75 MG (PLAVIX) TABLET PO SCH (09:00)
[2019-02-18] MEDS ORDERED: ASPIRIN E.C. 81 MG (ECOTRIN) TAB PO SCH (09:00)
[2019-02-18] MEDS ORDERED: PANTOPRAZOLE 40 MG (PROTONIX) TAB PO SCH (09:00)
[2019-02-18] MEDS: MAGNESIUM 1 GM/100 ML IVPB 100 ML IV SCH (09:14)
--- NOTE | 2019-02-18 09:22 | NUR ---
prior to a.m. medications pulse was 94 bpm and b/p was 143/63.
--- NOTE | 2019-02-18 09:25 | NUR ---
PATIENT WAS ON 2 L NC AND O2 SAT WAS 93%, SHE WAS OFF O2 FOR OVER 60 MINS AND WAS RECHECKED ON RA AND O2 SAT WAS 87% SO O2 NC WAS ADDED TO PATIENT AND IT TOOK 2 L TO GET SAT UP AND TO STAY UP AROUND 90%. 2 L AT ALL TIMES
--- NOTE | 2019-02-18 10:06 | NUR ---
CM/SS patient discharging this day and will need 2l cont. oxygen. Patient preference or DME would be [facility]. Information sent to the [facility] and they will provide portable oxygen. Patient stated she did not want the oxygen if was going to be an out of pocket cost to her and that she was not going to wear it when out of the home, said she would wear it when she was sleeping. Discussed that the recommendation would be that she wear it continuously. DME was going to verify insurance and coverage.
[2019-02-18] MEDS ORDERED: AZIT250T12 PO (10:28)
[2019-02-18] MEDS ORDERED: CEFD300C3 PO (10:28)
--- NOTE | 2019-02-18 10:30 | Discharge Inst-Simple/Standard ---
Discharge Inst-Standard Discharge Medications New, Converted or Re-Newed RX: Transmitted to Pharmacy Patient Instructions/Follow Up Plan of Care/Instructions/FU: Take medications as prescribed. Follow up with PCP. Activity as Tolerated: Yes Discharge Diet: No Restrictions Return to The Hospital For: fevers, shortness of breath, chest pain, or if you feel like you are getting worse HAMMAD ERWIN MD Feb 18, 2019 10:30
[2019-02-18 12:00] VITALS: BP 143/63
--- NOTE | 2019-02-18 14:39 | Discharge Summary ---
Diagnosis/Chief Complaint Date of Admission Feb 16, 2019 at 17:45 Date of Discharge Feb 18, 2019 at 12:30 Discharge Date: Feb 18, 2019 Admission Diagnosis Sepsis due to pneumonia Primary Care Edu Felton DO Discharge Diagnosis Community acquired pneumonia (1) Sepsis due to pneumonia Status: Acute Discharge Summary Discharge Physical Exam Allergies: Coded Allergies: No Known Drug Allergies (Unverified , 11/02/09) Vitals & I&Os Vital Signs Date Time Temp Pulse Resp B/P (MAP) Pulse Ox O2 Delivery O2 Flow Rate FiO2 02/18/19 12:00 94 18 143/63 89 Room Air 2.00 02/18/19 08:00 98.5 02/17/19 20:23 21 General Appearance: No Apparent Distress, WD/WN Respiratory: Lungs Clear, Normal Breath Sounds, No Respiratory Distress Cardiovascular: Regular Rate, Rhythm, No Edema, No Murmur Gastrointestinal: Normal Bowel Sounds, Non Tender, Soft Extremity: Normal Inspection, Non Tender, No Pedal Edema Skin: Normal Color, Warm/Dry Neurologic/Psychiatric: Alert; No Disoriented Hospital Course Ban Casillas is a 78-year-old female who presented with shortness of breath and was found to have sepsis due to pneumonia. She was started on IV antibiotics and responded quickly. She was transitioned to oral antibiotics. She remained afebrile. She was discharged home with oral antibiotics. She also had a new oxygen requirement which was prescribed on discharge. Labs (last 24 hrs) Laboratory Tests 02/18/19 04:56: White Blood Count 10.2, Red Blood Count 3.26L, Hemoglobin 9.4L, Hematocrit 29L, Mean Corpuscular Volume 90, Mean Corpuscular Hemoglobin 29, Mean Corpuscular Hemoglobin Concent 32, Red Cell Distribution Width 15.0H, Platelet Count 178, Mean Platelet Volume 11.8H, Neutrophils (%) (Auto) 67, Lymphocytes (%) (Auto) 20, Monocytes (%) (Auto) 11, Eosinophils (%) (Auto) 2, Basophils (%) (Auto) 0, Neutrophils # (Auto) 6.8, Lymphocytes # (Auto) 2.0, Monocytes # (Auto) 1.1H, Eosinophils # (Auto) 0.2, Basophils # (Auto) 0.0, Sodium Level 140, Potassium Level 4.0, Chloride Level 104, Carbon Dioxide Level 27, Anion Gap 9, Blood Urea Nitrogen 6L, Creatinine 0.74, Estimat Glomerular Filtration Rate > 60, BUN/Creatinine Ratio 8, Glucose Level 90, Calcium Level 9.0, Magnesium Level 1.6 Microbiology 02/16/19 Blood Culture - Preliminary, Resulted No growth 02/16/19 Influenza Types A,B Antigen (ZENOBIA) - Final, Complete 02/16/19 Urine Culture - Final, Complete 3 or more isolates Patient resulted labs reviewed. Imaging: Reviewed Imaging Report Discussion & Recommendations Discharge Planning: <30 minutes discharge planning Discharge Home Medications: Active Scripts Active Azithromycin 250 Mg Tablet 250 Mg PO DAILY 2 Days Cefdinir 300 Mg Capsule 300 Mg PO BID 5 Days Reported Metoprolol Tartrate 50 Mg Tablet 50 Mg PO BID Aspirin EC (Aspirin) 81 Mg Tablet.dr 81 Mg PO DAILY Atorvastatin Calcium 80 Mg Tablet 80 Mg PO HS Clopidogrel (Clopidogrel Bisulfate) 75 Mg Tablet 75 Mg PO DAILY Pantoprazole Sodium 40 Mg Tablet.dr 40 Mg PO DAILY Furosemide 20 Mg Tablet 20 Mg PO DAILY Iprat-Albut 0.5-3(2.5) mg/3 ml (Ipratropium/Albuterol Sulfate) 3 Ml Ampul.neb 3 Ml IH BID PRN Condition at discharge Stable Instructions to patient/family Please see electronic discharge instructions given to patient. Clinical Quality Measures DVT/VTE Risk/Contraindication: Risk Factor Score Per Nursin RFS Level Per Nursing on Admit: 4+=Very High HAMMAD ERWIN MD Feb 18, 2019 14:39
== END 2019-02-18 12:30 | disposition home or self-care (01) | DRG 871 ==
LOC: EDUNIT# 15:49 → ER 15:50 → 4TH 17:45
PROVIDERS: ADMIT Family Medicine; ATTEND Family Medicine
DX: A41.9 Sepsis, unspecified organism (principal); J18.9 Pneumonia, unspecified organism; J43.9 Emphysema, unspecified; I10 Essential (primary) hypertension; I25.10 Atherosclerotic heart disease of native coronary artery without angina pectoris; R30.0 Dysuria; R33.9 Retention of urine, unspecified; I25.2 Old myocardial infarction; E78.00 Pure hypercholesterolemia, unspecified; M19.91 Primary osteoarthritis, unspecified site; H26.9 Unspecified cataract; Z95.5 Presence of coronary angioplasty implant and graft; Z87.19 Personal history of other diseases of the digestive system; Z87.440 Personal history of urinary (tract) infections; Z87.891 Personal history of nicotine dependence
CPT/HCPCS: 36415; 36600; 71046; 80048; 80053; 81000; 82805; 83605; 83735; 85025; 85610; 87040; 87088; 87804; 94640; 94664; 94760; 94761

== ENCOUNTER → 2019-05-14 | Outpatient (CLI) | payer MEDICARE, OTHER ==
[~2019-05-14] MED LIST changes: +AZIT250T12 PO; +CEFD300C3 PO
== END ==
LOC: CARD 10:00
PROVIDERS: ATTEND Internal Medicine Cardiovascular Disease
DX: I08.1 Rheumatic disorders of both mitral and tricuspid valves (principal); I25.10 Atherosclerotic heart disease of native coronary artery without angina pectoris; I10 Essential (primary) hypertension; E78.2 Mixed hyperlipidemia
CPT/HCPCS: 93306

== ENCOUNTER → 2019-05-26 | Outpatient (CLI) | payer MEDICARE, OTHER ==
[~2019-05-26] VITALS: Ht 160 cm; Wt 58.0 kg
[~2019-05-26] MED LIST changes: +REGADENOSON 0.4 MG/5 ML SYR (LEXISCAN) IV ONE
[2019-05-26] MEDS: CATHETER FLUSH 10 ML SYR IV PRN ×2 (08:36→09:26)
[2019-05-26 09:25] VITALS: BP 182/93
--- NOTE | 2019-05-27 00:08 | STRESS TEST ---
DATE OF SERVICE: 05/26/2019 LEXISCAN MYOVIEW STRESS TEST REPORT REFERRING PHYSICIAN: Dr. Felton. Baseline heart rate is 76. Baseline blood pressure 182/93. Baseline EKG is sinus rhythm with no ischemic changes. In summary, the patient was injected with 10.59 mCi of technetium-99 Myoview and the resting images were obtained. Then, the patient received 0.4 mg of Lexiscan followed by 33.0 mCi of technetium-99 Myoview. Throughout the test, there were no EKG changes. The resting and stress images were reviewed and compared in the short axis, horizontal long axis, and vertical long axis views. Review of the images showed breast attenuation with good radiotracer uptake, no significant ischemia or infarction was seen. SSS is 2, SDS 2, TID value 1.06. On the gated images, the left ventricle appeared to be in normal size with good contractility. Calculated ejection fraction 73%. CONCLUSION: 1. The patient tolerated Lexiscan well. 2. Breast attenuation with no significant ischemia or infarction on SPECT images. 3. Normal left ventricular size with normal contractility. Calculated ejection fraction 73%. Job ID: [id number] DocumentID: [id number] Dictated Date: 05/26/2019 17:40:39 Performance Analyst Date: 05/27/2019 00:06:16 Dictated By: TOI MONTAÑO MD
== END ==
LOC: CARD 05-14 09:50
PROVIDERS: ATTEND Internal Medicine Cardiovascular Disease
DX: I08.1 Rheumatic disorders of both mitral and tricuspid valves (principal); E78.2 Mixed hyperlipidemia; I10 Essential (primary) hypertension; I25.10 Atherosclerotic heart disease of native coronary artery without angina pectoris; R06.02 Shortness of breath
CPT/HCPCS: 78452; 93017; 93306

== ENCOUNTER → 2019-07-29 | Outpatient (CLI) | payer MEDICARE, OTHER ==
[~2019-07-29] MED LIST changes: +HOLD METFORMIN - RECEIVED CONTRAST 20 ML VIAL IV SCH; +IOHEXOL 350 MG/ML 100 ML (OMNIPAQUE 350) VIAL IV ONE; +NS 100 ML (IVPB) BAG IV ONE; -REGADENOSON 0.4 MG/5 ML SYR (LEXISCAN) IV ONE; -TRAZ-222 PO; +TRZ50T PO
[2019-07-29 08:20] LABS: CREATININE SERUM 0.95 MG/DL (0.60-1.30)
--- NOTE | 2019-07-29 09:50 | Diagnostic Imaging Report ---
PROCEDURE: CT chest with contrast only. TECHNIQUE: Multiple contiguous axial images were obtained through the chest after administration of intravenous contrast. Auto Exposure Controls were utilized during the CT exam to meet ALARA standards for radiation dose reduction. INDICATION: COPD, hypoxemia, nicotine dependence. Comparison made with prior examination 12/20/2018. FINDINGS: There is biapical pleural thickening and scarring. There is minimal scarring in the lingula. The previously seen micronodule in the right middle lobe is not appreciated on today's exam and this is likely infiltrate. There is marked air trapping compatible with COPD. There is no pleural or pericardial fluid. There is no pneumothorax. The thoracic aorta is normal in caliber and without evidence of dissection. There is no pathologically enlarged adenopathy. The visualized intra-abdominal structures are unremarkable. There is mild thoracic spondylosis. IMPRESSION: Marked COPD with biapical pleural thickening and scarring as well as some scarring in the lingula. The previously described micronodule in the right middle lobe is resolved. No new pulmonary nodules are appreciated. No other acute abnormality in the chest. Dictated by: Dictated on workstation # [id number]
== END ==
LOC: RAD 07:46
PROVIDERS: ATTEND Nurse Practitioner Family
DX: J44.9 Chronic obstructive pulmonary disease, unspecified (principal); R09.02 Hypoxemia; F17.201 Nicotine dependence, unspecified, in remission
CPT/HCPCS: 36415; 71260; 82565; 84520

== ENCOUNTER 2019-08-27 07:53 | Outpatient (RCR) | payer MEDICARE, OTHER ==
--- NOTE | 2019-08-20 11:54 | NUR ---
Pt scheduled for upcoming pulmonary rehab evaluation; looked up file to see if current PFT in records (for eval) and to get mailing address to send paperwork.
[~2019-08-27 07:53] MED LIST changes: -HOLD METFORMIN - RECEIVED CONTRAST 20 ML VIAL IV SCH; -IOHEXOL 350 MG/ML 100 ML (OMNIPAQUE 350) VIAL IV ONE; -NS 100 ML (IVPB) BAG IV ONE
== END 2019-11-25 | disposition home or self-care (01) ==
LOC: PULM 07:53
PROVIDERS: ATTEND Internal Medicine Critical Care Medicine
DX: J44.9 Chronic obstructive pulmonary disease, unspecified (principal); I48.20 Chronic atrial fibrillation, unspecified; R09.02 Hypoxemia
CPT/HCPCS: 99211

== ENCOUNTER → 2021-08-26 | Outpatient (CLI) | payer MEDICARE ==
[~2021-08-26] MED LIST changes: +ASPI-1238 PO; -ASPI-983 PO; +CATHETER FLUSH 10 ML SYR IV PRN; -CYAN500T62 PO; +CYAN500T8 PO; +HOLD METFORMIN - RECEIVED CONTRAST 20 ML VIAL IV SCH; +IOHEXOL 350 MG/ML 100 ML (OMNIPAQUE 350) VIAL IV ONE; -LISI-556 PO; +LISI5TAB20 PO; +NS 100 ML (IVPB) BAG IV ONE; -OXYC-471 PO; +OXYC1TAB11 PO; -PANT40TA3 PO; +PANT40TA52 PO
[2021-08-26 08:06] LABS: CREATININE SERUM 1.07 MG/DL (0.60-1.30)
--- NOTE | 2021-08-26 08:54 | Diagnostic Imaging Report ---
EXAM: CTA neck with IV contrast. 3D reconstructions including MIPs of the angiographic images were performed and reviewed. All CT scans use one or more of the following dose optimizing techniques: automated exposure control, MA and/or KvP adjustment based on patient size and exam type, or iterative reconstruction. INDICATION: Carotid stenosis. COMPARISON: None. FINDINGS: CTA demonstrates conventional aortic arch. Advanced diffuse atherosclerotic calcifications. This results in less than 50% narrowing of the right internal carotid artery origin. There is 50-69% narrowing of the left internal carotid artery proximally. No large vessel occlusions. Visualized picayune of Baird is intact. Dominant left vertebral artery. The visualized dural venous sinuses are normally opacified. Biapical scarring. Partially visualized sternotomy. Visualized paravertebral soft tissues demonstrate no acute findings. Nonspecific nodule in the right thyroid measuring up to 1.2 cm. IMPRESSION: 1. Calcified atherosclerotic disease results in 50-69% narrowing of the proximal left internal carotid artery. 2. There is less than 50% narrowing of the right internal carotid artery origin. 3. No large vessel occlusions. Dictated by: Dictated on workstation # [id number]
== END ==
LOC: RAD 09:15
PROVIDERS: ATTEND Physician Assistant
DX: I65.23 Occlusion and stenosis of bilateral carotid arteries (principal)
CPT/HCPCS: 36415; 70498; 82565; 84520

== ENCOUNTER → 2022-03-15 | Outpatient (CLI) | payer MEDICARE ==
[~2022-03-15] MED LIST changes: -CATHETER FLUSH 10 ML SYR IV PRN; -HOLD METFORMIN - RECEIVED CONTRAST 20 ML VIAL IV SCH; -IOHEXOL 350 MG/ML 100 ML (OMNIPAQUE 350) VIAL IV ONE; -NS 100 ML (IVPB) BAG IV ONE
== END ==
LOC: CARD 07:44
PROVIDERS: ATTEND Physician Assistant
DX: I36.1 Nonrheumatic tricuspid (valve) insufficiency (principal); I31.3 Pericardial effusion (noninflammatory)
CPT/HCPCS: 93306